=== PATIENT | female | born 1930 | race African-American/Black ===

== ENCOUNTER 2019-02-05 16:57 | Inpatient (IN) | payer OTHER ==
[~2019-02-05] VITALS: Ht 167.6 cm; Wt 63.5 kg
[2019-02-05 17:18] VITALS: BP 131/64
--- NOTE | 2019-02-05 17:20 | NUR ---
ED Nurse Note:pt. was BIBA from home, s/p fall no injury or pain reported ,skin is intact, VSS, pt. is A/Ox3, seem by YANIQUE DAO
--- NOTE | 2019-02-05 17:35 | NUR ---
ED Nurse Note:blood and urine sent to labs
[2019-02-05 17:43] LABS: BASOPHILS % (AUTO) 2.4 % (0.0-2.0); EOSINOPHILS % (AUTO) 3.3 % (0.0-3.0); HEMATOCRIT 36.5 % (37.0-47.0); HEMOGLOBIN 11.8 G/DL (12.0-16.0); MEAN CORPUSCULAR VOLUME 89 FL (80-99); MONOCYTES % (AUTO) 9.6 % (1.0-10.0); NEUTROPHILS % (AUTO) 55.6 % (45.0-75.0); PLATELET COUNT 304 K/UL (150-450); RED BLOOD COUNT 4.12 M/UL (4.20-5.40); RED CELL DISTRIBUTION WIDTH 11.8 % (11.6-14.8); WHITE BLOOD COUNT 8.4 K/UL (4.8-10.8)
[2019-02-05] MEDS: Sodium Chloride 550 ML IV SCH ×2 (17:43→21:18)
--- NOTE | 2019-02-05 17:53 | NUR ---
ED Nurse Note:pt. had head CT done
[2019-02-05 17:55] LABS: APPEARANCE,URINE CLEAR; BILIRUBIN, URINE NEGATIVE (NEGATIVE); COLOR,URINE PALE YELLOW; GLUCOSE, URINE (UA) NEGATIVE (NEGATIVE); KETONES,URINE NEGATIVE (NEGATIVE); LEUKOCYTE ESTERASE ,URINE NEGATIVE (NEGATIVE); NITRITE,URINE NEGATIVE (NEGATIVE); PH,URINE 5 (4.5-8.0); PROTEIN,URINE NEGATIVE (NEGATIVE); UROBILINOGEN,URINE NORMAL MG/DL (0.0-1.0)
[2019-02-05 17:57] LABS: ANION GAP 2 mmol/L (5-15); BLOOD UREA NITROGEN 15 mg/dL (7-18); CALCIUM 9.7 MG/DL (8.5-10.1); CARBON DIOXIDE 29 MMOL/L (21-32); CHLORIDE 109 MMOL/L (98-107); CREATININE 0.8 MG/DL (0.55-1.30); POTASSIUM 3.3 MMOL/L (3.5-5.1); SODIUM 140 MMOL/L (136-145)
[2019-02-05 18:09] LABS: ALANINE AMINOTRANSFERASE 27 U/L (12-78); ALBUMIN 2.9 G/DL (3.4-5.0); ALBUMIN/GLOBULIN RATIO 0.6 (1.0-2.7); ALKALINE PHOSPHATASE 131 U/L (46-116); ASPARTATE AMINO TRANSFERASE 33 U/L (15-37); BILIRUBIN,TOTAL 0.5 MG/DL (0.2-1.0); CREATINE KINASE 79 U/L (26-308)
[2019-02-05 18:52] VITALS: BP 154/111
[2019-02-05] MEDS ORDERED: DONEPEZIL HCL10 M2 ORAL (19:20)
[2019-02-05] MEDS ORDERED: DILTIAZEM ER300 MG PO (19:20)
[2019-02-05] MEDS ORDERED: ZYPREXA5 MG ORAL (19:20)
[2019-02-05] MEDS ORDERED: LORAZEPAM2 MG ORAL (19:20)
--- NOTE | 2019-02-05 19:27 | Emergency Room Report ---
History of Present Illness General Chief Complaint: Multiple Trauma/Fall Source: Patient Present Illness HPI The patient fell in the bathroom yesterday. She was not observed when she fell. She fell on tile. She hit her backside and her daughter does not think she hit her head. Since that time she is having difficulty ambulating. The patient has dementia and is unable to answer questions. The daughter states that she is incontinent of urine almost all the time. The daughter is also noticed that she has been coughing recently. There is been no documented fevers. There is no vomiting or diarrhea. Allergies: Coded Allergies: No Known Allergies (Unverified , 02/05/19) Patient History Limited by: medical condition Past Medical History: see triage record Social History Narrative Born in [place]. She had her own [employer] business Last Menstrual Period: menopause Now: No Reviewed Nursing Documentation: PMH: Agreed; PSxH: Agreed Review of Systems All Other Systems: limited Physical Exam Vital Signs Date Time Temp Pulse Resp B/P (MAP) Pulse Ox O2 Delivery O2 Flow Rate FiO2 02/05/19 17:02 98.4 91 16 193/84 (120) 94 Room Air Sp02 EP Interpretation: reviewed, normal General Appearance: well appearing, no apparent distress, alert, non-toxic, other - GCS 14 Head: normocephalic, atraumatic Eyes: bilateral eye normal inspection, bilateral eye PERRL, bilateral eye EOMI ENT: moist mucus membranes Neck: supple, no bony tend Respiratory: chest non-tender, lungs clear, normal breath sounds Cardiovascular #1: regular rate, rhythm Cardiovascular #2: 2+ radial (R) Gastrointestinal: normal inspection, normal bowel sounds, non tender, no mass, non-distended Musculoskeletal: back normal, normal range of motion, other - No lumbar tenderness Neurologic: alert, 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 She is unable to ambulate at this time. Differential includes syncope, mechanical fall, back contusion, fracture, electrolyte abnormality, occult infection amongst others. Very complicated patient. Patient will be evaluated with EKG, chest x-ray, lumbar sacral spine films and labs. The patient will be treated with IV hydration. EKG with sinus rhythm and nonspecific ST-T wave changes with inferolateral ischemia. Chest x-ray no infiltrates. Lumbar sacral spine films with L5-S1 narrowing no step-offs or obvious fractures. CBC unremarkable. CMP remarkable for low potassium. Urinalysis clear. Potassium administered in the emergency department. Ativan given for mild anxiety. Due to the fact that the patient cannot ambulate the patient was admitted to the hospital for further evaluation and observation. Discussion of findings with daughter. Laboratory Tests Test 02/05/19 17:30 White Blood Count 8.4 K/UL (4.8-10.8) Red Blood Count 4.12 M/UL (4.20-5.40) L Hemoglobin 11.8 G/DL (12.0-16.0) L Hematocrit 36.5 % (37.0-47.0) L Mean Corpuscular Volume 89 FL (80-99) Mean Corpuscular Hemoglobin 28.7 PG (27.0-31.0) Mean Corpuscular Hemoglobin Concent 32.4 G/DL (32.0-36.0) Red Cell Distribution Width 11.8 % (11.6-14.8) Platelet Count 304 K/UL (150-450) Mean Platelet Volume 6.1 FL (6.5-10.1) L Neutrophils (%) (Auto) 55.6 % (45.0-75.0) Lymphocytes (%) (Auto) 29.0 % (20.0-45.0) Monocytes (%) (Auto) 9.6 % (1.0-10.0) Eosinophils (%) (Auto) 3.3 % (0.0-3.0) H Basophils (%) (Auto) 2.4 % (0.0-2.0) H Prothrombin Time 10.3 SEC (9.30-11.50) Prothrombin Time INR 1.0 (0.9-1.1) PTT 24 SEC (23-33) Urine Color Pale yellow Urine Appearance Clear Urine pH 5 (4.5-8.0) Urine Specific [place] 1.020 (1.005-1.035) Urine Protein Negative (NEGATIVE) Urine Glucose (UA) Negative (NEGATIVE) Urine Ketones Negative (NEGATIVE) Urine Blood 1+ (NEGATIVE) H Urine Nitrite Negative (NEGATIVE) Urine Bilirubin Negative (NEGATIVE) Urine Urobilinogen Normal MG/DL (0.0-1.0) Urine Leukocyte Esterase Negative (NEGATIVE) Urine RBC 0-2 /HPF (0 - 2) Urine WBC 0-2 /HPF (0 - 2) Urine Squamous Epithelial Cells Occasional /LPF Urine Bacteria Occasional /HPF (NONE) Urine Mucus Moderate /LPF (NONE/OCC) H Sodium Level 140 MMOL/L (136-145) Potassium Level 3.3 MMOL/L (3.5-5.1) L Chloride Level 109 MMOL/L (98-107) H Carbon Dioxide Level 29 MMOL/L (21-32) Anion Gap 2 mmol/L (5-15) L Blood Urea Nitrogen 15 mg/dL (7-18) Creatinine 0.8 MG/DL (0.55-1.30) Estimate Glomerular Filtration Rate mL/min (>60) Glucose Level 116 MG/DL (74-106) H Calcium Level 9.7 MG/DL (8.5-10.1) Total Bilirubin 0.5 MG/DL (0.2-1.0) Aspartate Amino Transferase (AST) 33 U/L (15-37) Alanine Aminotransferase (ALT) 27 U/L (12-78) Alkaline Phosphatase 131 U/L (46-116) H Total Creatine Kinase 79 U/L (26-308) Troponin I 0.000 ng/mL (0.000-0.056) Pro-B-Type Natriuretic Peptide 209 pg/mL (0-125) H Total Protein 7.8 G/DL (6.4-8.2) Albumin 2.9 G/DL (3.4-5.0) L Globulin 4.9 g/dL Albumin/Globulin Ratio 0.6 (1.0-2.7) L EKG Diagnostic Results Rate: normal Rhythm: NSR ST Segments: no acute changes Rhythm Strip Diag. Results EP Interpretation: yes Rhythm: NSR, no PVC's, no ectopy Chest X-Ray Diagnostic Results Chest X-Ray Diagnostic Results : Chest X-Ray Ordered: Yes # of Views/Limited/Complete: 1 View Indication: Other EP Interpretation: Yes Interpretation: no consolidation, no effusion, no pneumothorax, other - No infiltrates Impression: Other Electronically Signed by: Electronically signed by Nolan Gutierrez MD Other X-Ray Diagnostic Results Other X-Ray Diagnostic Results : X-Ray ordered: l s spine # of Views/Limited Vs Complete: 3 View Indication: Pain EP Interpretation: Yes CT/MRI/US Diagnostic Results CT/MRI/US Diagnostic Results : Imaging Test Ordered: Head Impression Air-fluid level right maxillary sinus. Chronic microvascular ischemic changes with cerebral volume loss Last Vital Signs Date Time Temp Pulse Resp B/P (MAP) Pulse Ox O2 Delivery O2 Flow Rate FiO2 02/05/19 23:31 Room Air 02/05/19 22:00 98.4 73 14 154/111 99 Status: improved Disposition: XFER SHT-TRM HOSP Condition: Serious Referrals: NON PHYSICIAN (PCP) Nolan Gutierrez MD Feb 05, 2019 19:27
[2019-02-05] MEDS ORDERED: LORazepam Inj 2mg/ml 1ml IV ONE (20:15)
--- NOTE | 2019-02-05 20:53 | NUR ---
ED Nurse Note: pt with increased confusion, trying to get out of bed constantly and pulling at cords. Pt is not combative just forgetfull and unaware of limitations. Family at bedside
--- NOTE | 2019-02-05 21:30 | NUR ---
NURSE NOTES: Received report via phone from ATIF [facility]. Awaiting pts arrival to unit. Called and left a message with Dr. Osman (on-call for Dr. Saini), awaiting call back.
--- NOTE | 2019-02-05 22:00 | NUR ---
TRANSFER TO FLOOR: Patient transferred to as ordered, per [Dr Saini]. Report given to [ATIF Sierra]. Belongings and medications given to []. Family and or S/O informed of transfer.
--- NOTE | 2019-02-05 22:30 | NUR ---
NURSE NOTES: Called and left a second message with Dr. Osman (on-call for Dr. Saini), awaiting call back.
[2019-02-06] VITALS: BP 123/60
[2019-02-06] MEDS: Sodium Chloride 550 ML IV SCH (00:50)
--- NOTE | 2019-02-06 01:36 | NUR ---
NURSE NOTES: Received the following orders from Dr. Saini: - continue home meds - regular diet - scds - full code Will input orders and will continue to monitor.
[2019-02-06 04:00] VITALS: BP 121/58
--- NOTE | 2019-02-06 07:43 | NUR ---
HAND-OFF: Report given to ATIF Tim. Pt stable.
[2019-02-06 08:00] VITALS: BP 116/60
--- NOTE | 2019-02-06 08:00 | NUR ---
NURSE NOTES: Received report from Mariela/RN, Patient asleep, Lying semi-park, no acute distress/SOB noted. Son at bedside. Checked IV, patent and intact, no bleeding or infiltration noted. Bed in lowest position and locked, Call light within reach. Will continue plan of care.
--- NOTE | 2019-02-06 08:01 | NUR ---
CASE MANAGEMENT: INITIAL REVIEW 88 YO F PRESENTED TO OUR ED FROM HOME CC: FALL YESTERDAY PMHx: URINE INCONTINENCE. SI:SYNCOPE. T 98.4 HR 91 RR 16 B/P 193/84 SATS 94% ON RA K 3.3 CL 109 GLU 116 ALP 131 BNP 209 IS: NS BOLUS X1 KCL PO X1 ATIVAN IV X1 PATIENT ADMITTED TO TELE 02/05/2019 @ 2042 DCP: PATIENT TO BE DISCHARGED TO HOME ONCE MEDICALLY CLEARED. 02/06/2019 SI:SYNCOPE. T 98 HR 73 RR 18 B/P 121/58 SATS 96% ON RA NO LABS TODAY IS:ARICEPT PO QD ZYPREXA PO QD TELE STATUS PLAN OF CARE: CT HEAD >> PENDING Addendum: 02/06/19 at 0808 by Heike Marino INTERQUAL MET
[2019-02-06] MEDS ORDERED: LORazepam 1mg tab ORAL ONE (09:00)
[2019-02-06] MEDS ORDERED: Donepezil 10mg tab ORAL SCH (09:00)
--- NOTE | 2019-02-06 09:21 | Diagnostic Imaging Report ---
Indications: Trauma, status post fall Technique: Spiral acquisitions obtained through the brain. Angled axial and coronal 5 x 5 mm slices were reconstructed. Total dose length product 1368.97 mGycm. CTDI vol(s) 70.38 mGy. Dose reduction achieved using automated exposure control Comparison: None. Findings: There is age-related enlargement of the ventricles and extra axial CSF spaces. There is periventricular deep white matter low-attenuation, consistent with chronic deep white matter ischemic change. No acute intracranial hemorrhage or edema, mass effect, nor midline shift. The calvarium is intact. The visualized orbits are unremarkable. There is extensive sinus disease demonstrated. The mastoids are clear. Impression: Chronic and age-related changes. Negative for acute intracranial bleed or mass effect Sinus disease This agrees with the preliminary interpretation provided overnight by [facility] teleradiology service. The CT scanner at [facility] is accredited by the [employer] and the scans are performed using protocols designed to limit radiation exposure to as low as reasonably achievable to attain images of sufficient resolution adequate for diagnostic evaluation.
[2019-02-06 10:10] LABS: BASOPHILS % (AUTO) 1.1 % (0.0-2.0); EOSINOPHILS % (AUTO) 3.2 % (0.0-3.0); HEMATOCRIT 38.8 % (37.0-47.0); HEMOGLOBIN 12.1 G/DL (12.0-16.0); LYMPHOCYTES % (AUTO) 28.4 % (20.0-45.0); MEAN CORPUSCULAR VOLUME 91 FL (80-99); MONOCYTES % (AUTO) 6.7 % (1.0-10.0); NEUTROPHILS % (AUTO) 60.7 % (45.0-75.0); PLATELET COUNT 319 K/UL (150-450); RED BLOOD COUNT 4.28 M/UL (4.20-5.40); RED CELL DISTRIBUTION WIDTH 12.3 % (11.6-14.8); WHITE BLOOD COUNT 8.4 K/UL (4.8-10.8)
[2019-02-06 11:03] LABS: ALANINE AMINOTRANSFERASE 26 U/L (12-78); ALBUMIN 2.8 G/DL (3.4-5.0); ALBUMIN/GLOBULIN RATIO 0.6 (1.0-2.7); ALKALINE PHOSPHATASE 119 U/L (46-116); ANION GAP 7 mmol/L (5-15); ASPARTATE AMINO TRANSFERASE 37 U/L (15-37); BILIRUBIN,TOTAL 0.5 MG/DL (0.2-1.0); BLOOD UREA NITROGEN 11 mg/dL (7-18); CALCIUM 9.3 MG/DL (8.5-10.1); CARBON DIOXIDE 26 MMOL/L (21-32); CHLORIDE 110 MMOL/L (98-107); CREATININE 0.8 MG/DL (0.55-1.30); POTASSIUM 3.9 MMOL/L (3.5-5.1); SODIUM 143 MMOL/L (136-145)
[2019-02-06 12:00] VITALS: BP 128/63
--- NOTE | 2019-02-06 12:09 | NUR ---
P.T NOTE: P.T EVALUATION COMPLETED AND TREATMENT INITIATED. PLEASE REFER TO P.T EVALUATION FOR CURRENT FUNCTIONAL STATUS. SON PRESENT WHO PROVIDED PERTINENT INFORMATION IN REGARDS TO PLOF DUE TO PATIENT'S COGNITIVE ISSUE. PATIENT IS ALERT, ORIENTED TO SELF ONLY , PLEASANTLY CONFUSED HOWEVER FOLLOWS SIMPLE ONE STEP COMMANDS WITH CONSTANT REDIRECTION NEEDED. PATIENT DID NOT REPORT C/O PAIN NOR DISCOMFORT DURING THE ENTIRE P.T EVALUATION/TX. PATIENT APPEARED GENERALLY AND UNSTEADY EVIDENCE BY LOB EPISODES DURING GAIT ASSESSMENT. PATIENT CURRENTLY REQUIRE CGA X 1 FOR BED MOBILITY, TRANSFERS AND GAIT/AMBULATION ACTIVITIES. OVERALL FAIR ENDURANCE. SKILLED P.T SERVICE IS WARRANTED TO IMPROVE STRENGTH , BALANCE AND ENDURANCE TO INCREASE HER MOBILITY INDEPENDENCE AND SAFETY. ANTICIPATED D/C EITHER TODAY OR TOMORROW OR WHEN MEDICALLY STABLE TO HOME WITH FAMILY ASSISTING. RECOMMEND HOME P.T FOR SAFETY FOLLOWUP UP FOR FURTHER STRENGTHENING AND BALANCE IMPROVEMENT. THANK YOU FOR THIS REFERRAL.
--- NOTE | 2019-02-06 12:19 | Diagnostic Imaging Report ---
Indication: Trauma, pain Technique: One view of the pelvis Comparison: none Findings: No acute fractures. No dislocations. The joint spaces are preserved. Impression: Negative
--- NOTE | 2019-02-06 12:20 | Diagnostic Imaging Report ---
Indication: Pain, trauma Technique: 3 views of the lumbar spine Comparison: None Findings: There is very slight anterior offset of L3 on L4, L4 on L5. Otherwise normal bony alignment. There is degenerative disc narrowing at L5-S1. The remaining disc spaces are preserved. No acute fractures. No dislocations. The ankles are intact. Sacroiliac joint spaces are preserved Impression: Degenerative changes as noted No acute bony trauma
--- NOTE | 2019-02-06 12:44 | Diagnostic Imaging Report ---
Indication: Shortness of breath Technique: One view of the chest Comparison: none Findings: Suboptimal inspiration. Scattered granulomatous calcifications are present bilaterally. There is chronic appearing mild interstitial prominence and central bronchial wall thickening, probably on the basis of senescent change. The heart is upper limits of normal in size Impression: Mild interstitial prominence, suspect on the basis of senescent changes. No definite acute process Evidence of old granulomatous disease
--- NOTE | 2019-02-06 16:26 | NUR ---
DISCHARGE PLANNING SPOKE WITH FAMILY AT BEDSIDE AND ALSO CALLED AND SPOKE WITH HCP PROJECT MANAGEMENT INTERN FAXED DISCHARGE ORDER TO [facility]Y [facility]. ORDER INCLUDED REQUEST FOR HOME HEALTH SERVICES SILKE SAID SOMEONE WILL CONTACT FAMILY WITHIN 24 TO 48 HOURS REGARDING CONTRACTED HOME HEALTH SERVICES
--- NOTE | 2019-02-06 17:00 | NUR ---
NURSE NOTES: Discharge instruction given and patient's family verbalized understanding. Heart monitor and IV removed, no acute bleeding or infiltration noted. Patient is in stable condition. No acute distress. Family singed paper work. Escorted downstairs, Patient left with family via private vehicle.
--- NOTE | 2019-02-06 18:45 | History and Physical Report ---
DATE OF ADMISSION: 02/05/2019 CHIEF COMPLAINT: Fall. HISTORY OF PRESENT ILLNESS: The patient was found down in the bathroom yesterday. She has severe dementia and does live with the family. There is no indication why she fell and she did not complain of any pain. She had some difficulty walking since then. This morning, she said that she has no pain and is feeling fine. According to the family, she was incontinent of urine. She has slight cough. There is no fevers, chills, or sweats. No vomiting or diarrhea. She seemed more confused than usual. PAST MEDICAL HISTORY: Alzheimer's type dementia and hypertension. REVIEW OF SYSTEMS: Otherwise unremarkable. PHYSICAL EXAMINATION: GENERAL: The blood pressure has been satisfactory on medication. It was elevated when she first arrived. SKIN: Warm and dry. HEENT: The head is normocephalic without signs of trauma. NECK: No jugular venous distention. CHEST: Clear. CARDIAC: Rhythm is regular. ABDOMEN: Soft and nontender. EXTREMITIES: No clubbing, cyanosis, or edema. DIAGNOSTIC DATA: An x-rays of the hip and CT of the brain are negative for anything acute. Chest x-ray is negative. LABORATORY DATA: Laboratory studies notable for a low albumin of 2.8. Potassium was supplemented and is normal now. Hemoglobin is normal. There is no urinary infection. IMPRESSION: 1. Fall without significant trauma. 2. Chronic Alzheimer's dementia. 3. Mild protein-calorie malnutrition. PLAN: Today, he will be evaluated by physical therapy and social service and discharge home later today if the findings are acceptable. Kvng Saini M.D. DR: LIZY JOB#: [id number] CC:
--- NOTE | 2019-02-08 10:29 | NUR ---
*-* INSURANCE *-* ALL CLINICALS AND REVIEWS HAVE BEEN FAXED TO: [facility] [employer] F:[phone]
--- NOTE | 2019-02-13 20:53 | Cardiology Report ---
APPROVED REPORT EKG Measurement Heart [id number] Normal sinus rhythm Cannot rule out Anterior infarct, age undetermined Abnormal ECG
--- NOTE | 2019-02-20 19:20 | Discharge Summary ---
Discharge Summary Discharge Summary _ DATE OF ADMISSION: 02/06/2019 DATE OF DISCHARGE: 02/06/2019 DISCHARGED BY: Dr. Kvng Saini BRIEF HOSPITAL COURSE: Patient is an 88-year-old female, who was found down in the bedroom the day prior to admission. She has severe dementia and does not live with the family. There was no indication why she fell. She did not complain of any pain. She had difficulty walking since then. On the morning of admission, she had no pain and was feeling fine. According to the family, she was incontinent of urine. She also had a slight cough. There was no reported fever, no chills or sweats. No vomiting or diarrhea. She seemed more confused than her baseline. On evaluation at ED, blood pressure was elevated to 193/84. Heart rate 91. She was afebrile and was saturating 94% on room air. Blood work did not show any leukocytosis. Hemoglobin 11.8 and hematocrit 36. Potassium was low at 3.3. Troponin was negative. proBNP 209. Urinalysis was essentially unremarkable. EKG was in normal sinus rhythm with nonspecific ST to T wave changes and inferolateral ischemia. Chest x-ray did not show any infiltrates. Lumbar x- ray did not show any acute bony trauma. Pelvic x-ray was negative for fractures or dislocation. Head CT showed chronic age-related changes; negative for acute intracranial bleed or mass-effect. She was given IV hydration. She was given potassium supplement. She was then admitted for evaluation of fall without significant trauma; with underlying chronic Alzheimer's dementia. She was admitted to telemetry. She was placed on the steel roller. Patient is a fall risk and was placed on fall precautions. Home meds were continued. Patient was evaluated by physical therapy. Patient had unsteady gait and was recommended FWW. She was recommended skilled PT services to improve strength, balance, endurance, mobility and safety. Vital signs were stable. Heart monitor stable. Potassium level normalized. She was eventually cleared for discharge home. FINAL DIAGNOSES: Fall without significant trauma Chronic Alzheimer's dementia Mild protein calorie malnutrition DISPOSITION: Patient was discharged home with home health DISCHARGE MEDICATIONS: Refer to Discharge Medication List. DISCHARGE INSTRUCTIONS: Follow-up in a week. I have been assigned to complete a discharge summary on this account, I was not involved with the patient's management.--EFE Gorman Jacqueline Robles NP Feb 20, 2019 19:20
== END 2019-02-06 17:37 | disposition home health service (06) | DRG 312 ==
LOC: EMR 18:08 → 2E 20:43 → EDBEDREQ 20:49 → OBSVTOIN 02-06 08:42
DX: R55 Syncope and collapse (principal); E44.1 Mild protein-calorie malnutrition; E87.6 Hypokalemia; G30.9 Alzheimer's disease, unspecified; F02.80 Dementia in other diseases classified elsewhere, unspecified severity, without behavioral disturbance, psychotic disturbance, mood disturbance, and anxiety; I10 Essential (primary) hypertension; Z68.22 Body mass index [BMI] 22.0-22.9, adult
CPT/HCPCS: 36415; 70450; 71045; 72020; 72170; 80053; 81003; 82550; 83735; 83880; 84484; 85025; 85610; 85730; 93005; 96374; 99285; J8499

== ENCOUNTER 2020-07-19 20:38 | Inpatient (IN) | payer OTHER ==
[~2020-07-19] VITALS: Ht 160 cm; Wt 72.5 kg
[~2020-07-19 20:38] MED LIST: DILTIAZEM ER300 MG PO; DONEPEZIL HCL10 M2 ORAL; LORAZEPAM2 MG ORAL; ZYPREXA5 MG ORAL
[2020-07-19] MEDS ORDERED: Omnipaque-300 100ml vial INJ STA (20:56)
[2020-07-19] MEDS ORDERED: D5 1/2NS w/KCl 20mEq 1,000 ML IV SCH (21:00)
[2020-07-19 21:05] VITALS: BP 164/86
--- NOTE | 2020-07-19 21:20 | Emergency Room Report ---
History of Present Illness General Chief Complaint: Choking Source: Patient, Family Member (Nolan Gutierrez MD) Present Illness HPI The patient presents with hoarseness and inability to swallow for 3 days. She started complaining about neck pain and swelling approximately week ago. Over the last 3 days this is worsened. She now cannot swallow water and chokes and turns blue when she tries. The granddaughter tried applesauce but the patient did not choke on this but stated that it was too painful to swallow. No fevers or chills. No weight loss. No shortness of breath or cough. Most of history obtained by grand-daughter. The patient has been isolated at home and not exposed to Covid. Patient with dementia and answers variable. Last admitted January 2019. 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 (Nolan Gutierrez MD) Allergies: Coded Allergies: No Known Allergies (Unverified , 02/05/19) COVID-19 Screening Contact w/high risk pt: No Experienced COVID-19 symptoms?: No COVID-19 Testing performed PLASTER PATTERNMAKER: No (Nolan Gutierrez MD) Patient History Limited by: medical condition Past Medical History: see triage record, old chart reviewed Social History Narrative Born in [place] Reviewed Nursing Documentation: PMH: Agreed; PSxH: Agreed (Nolan Gutierrez MD) Nursing Documentation-PMH Hx Hypertension: Yes (Nolan Gutierrez MD) Review of Systems All Other Systems: limited (Nolan Gutierrez MD) Physical Exam Vital Signs Date Time Temp Pulse Resp B/P (MAP) Pulse Ox O2 Delivery O2 Flow Rate FiO2 07/19/20 20:41 98.4 85 18 166/86 (112) 95 Room Air Sp02 EP Interpretation: reviewed, abnormal - slightly low as interpreted by me General Appearance: well appearing, no apparent distress, non-toxic, other - old and frail Head: normocephalic, atraumatic Eyes: bilateral eye normal inspection, bilateral eye PERRL, bilateral eye EOMI ENT: normal pharynx, moist mucus membranes, other - at least 2 masses L side of neck. Not mobile. Bottom one is at least 2X3 cm Neck: full range of motion, no meningismus, thyromegaly, other - no stridor but there is hoarseness, tender - anterior areas Respiratory: chest non-tender, lungs clear, normal breath sounds Cardiovascular #1: regular rate, rhythm Cardiovascular #2: 2+ radial (R) Gastrointestinal: normal bowel sounds, non tender, soft Genitourinary: no CVA tenderness Musculoskeletal: back normal, other - DJD Neurologic: motor strength/tone normal, oriented - X2, DTRs symmetric, sensory intact, cerebellar normal, other - hoarseness, rest of CN tested normal Psychiatric: other - poor recent memory Skin: no rash, warm/dry (Nolan Gutierrez MD) Medical Decision Making Diagnostic Impression: Primary Impression: Neck mass Additional Impressions: Dysphagia Qualified Codes: R13.10 - Dysphagia, unspecified Hypokalemia Tumor, thyroid Hypertensive urgency Tachycardia ER Course Patient presents with hoarseness dysphagia and neck masses. Differential includes infection, abscess, lymphadenitis, lymphoma and other lymphatic tumors, recurrent laryngeal compromise amongst others. She has been unable to swallow we have to evaluate her for possible dehydration. Called for critical potassium. K had been ordered but added more. Leukocytosis. Rocephin ordered. CT with thyroid tumor. Anxiety and hard dealing with secretions. Suction at bedside. Ativan and Haldol ordered. Discussed with daughter. Also discussed with admitting MD. Tachycardia and hypertension. Labetalol ordered. Telemetry unit. 2320 Labs Test 07/20/20 07:57 07/21/20 08:45 07/22/20 05:15 07/22/20 11:37 Sodium Level 140 MMOL/L (136-145) 140 MMOL/L (136-145) 138 MMOL/L (136-145) 140 MMOL/L (136-145) Potassium Level 2.7 MMOL/L (3.5-5.1) 3.3 MMOL/L (3.5-5.1) 3.4 MMOL/L (3.5-5.1) 3.3 MMOL/L (3.5-5.1) Chloride Level 104 MMOL/L (98-107) 106 MMOL/L (98-107) 105 MMOL/L (98-107) 104 MMOL/L (98-107) Carbon Dioxide Level 27 MMOL/L (21-32) 25 MMOL/L (21-32) 26 MMOL/L (21-32) 27 MMOL/L (21-32) Anion Gap 9 mmol/L (5-15) 9 mmol/L (5-15) 7 mmol/L (5-15) 9 mmol/L (5-15) Blood Urea Nitrogen 9 mg/dL (7-18) 7 mg/dL (7-18) 7 mg/dL (7-18) 9 mg/dL (7- 18) Creatinine 0.7 MG/DL (0.55-1.30) 0.7 MG/DL (0.55-1.30) 0.7 MG/DL (0.55-1.30) 0.8 MG/DL (0.55-1.30) Estimat Glomerular Filtration Rate > 60 mL/min (>60) > 60 mL/min (>60) > 60 mL/min (>60) > 60 mL/min (>60) Glucose Level 107 MG/DL (74-106) 117 MG/DL (74-106) 106 MG/DL (74-106) 117 MG/DL (74-106) Calcium Level 8.4 MG/DL (8.5-10.1) 8.3 MG/DL (8.5-10.1) 8.7 MG/DL (8.5-10.1) 9.1 MG/DL (8.5-10.1) White Blood Count 15.7 K/UL (4.8-10.8) 17.8 K/UL (4.8-10.8) 17.3 K/UL (4.8-10.8) Red Blood Count 4.82 M/UL (4.20-5.40) 4.67 M/UL (4.20-5.40) 4.84 M/UL (4.20-5.40) Hemoglobin 13.9 G/DL (12.0-16.0) 13.7 G/DL (12.0-16.0) 14.0 G/DL (12.0-16.0) Hematocrit 41.1 % (37.0-47.0) 40.7 % (37.0-47.0) 40.3 % (37.0-47.0) Mean Corpuscular Volume 85 FL (80-99) 87 FL (80-99) 83 FL (80-99) Mean Corpuscular Hemoglobin 28.8 PG (27.0-31.0) 29.3 PG (27.0-31.0) 28.9 PG (27.0-31.0) Mean Corpuscular Hemoglobin Concent 33.8 G/DL (32.0-36.0) 33.6 G/DL (32.0-36.0) 34.6 G/DL (32.0-36.0) Red Cell Distribution Width 13.6 % (11.6-14.8) 12.7 % (11.6-14.8) 14.2 % (11.6-14.8) Platelet Count 355 K/UL (150-450) 366 K/UL (150-450) 391 K/UL (150-450) Mean Platelet Volume 7.3 FL (6.5-10.1) 7.3 FL (6.5-10.1) 7.5 FL (6.5-10.1) Neutrophils (%) (Auto) 72.5 % (45.0-75.0) 74.3 % (45.0-75.0) 69.8 % (45.0-75.0) Lymphocytes (%) (Auto) 14.1 % (20.0-45.0) 15.5 % (20.0-45.0) 18.2 % (20.0-45.0) Monocytes (%) (Auto) 8.1 % (1.0-10.0) 7.3 % (1.0-10.0) 8.0 % (1.0-10.0) Eosinophils (%) (Auto) 4.4 % (0.0-3.0) 2.2 % (0.0-3.0) 3.0 % (0.0-3.0) Basophils (%) (Auto) 0.8 % (0.0-2.0) 0.8 % (0.0-2.0) 1.1 % (0.0-2.0) (Nolan Gutierrez MD) ER Course Patient was signed out to me. She has a thyroid mass as cause some eating problem. She also has a history of high blood pressure and takes Ativan at night for sleep. She was agitated and coughing and was tachycardic and hypertensive. After getting Ativan and Haldol, she is much calmer. She also received a low dose of labetalol. Right now her blood pressure is systolic in the 170 and heart rate in the 80. She is otherwise stable. In my medical opinion, she can be downgraded to medical surgical bed. (Kedar Lincoln MD) EKG Diagnostic Results Troponin ordered: Yes Rate: normal Rhythm: NSR ST Segments: no acute changes - Nonspecific ST-T wave changes with PACs (Nolan Gutierrez MD) Rhythm Strip Diag. Results Rhythm: NSR, no PVC's, other - PACs (Nolan Gutierrez MD) Chest X-Ray Diagnostic Results Chest X-Ray Diagnostic Results : Chest X-Ray Ordered: Yes # of Views/Limited/Complete: 1 View Indication: Other EP Interpretation: Yes Interpretation: no consolidation, no effusion, no pneumothorax, other - slight opacity RUL Impression: Other Electronically Signed by: Electronically signed by Nolan Gutierrez MD (Nolan Gutierrez MD) CT/MRI/US Diagnostic Results CT/MRI/US Diagnostic Results #1: Imaging Test Ordered: neck Impression Large partially calcified mostly low density heterogeneous mass measuring approximately 7.8 x 5.4 cm, appears to be arising from the left thyroid gland. This process exerts mass-effect and rightward tracheal deviation with mild narrowing of the canal. Likely thyroid neoplastic process or goiter. Recommend ultrasound/FNA. CT/MRI/US Diagnostic Results #2: Imaging Test Ordered: chest/abdomen Impression 1. Partially calcified large heterogeneous low-density mass arising from the left thyroid gland protruding into the superior mediastinum. This process deviates the trachea to the right and mildly narrows the canal. The esophagus is also deviated to the right. 2. 2 mm micronodule in the right upper lobe. (Nolan Gutierrez MD) Status: improved (Nolan Gutierrez MD) Disposition: ADMITTED INPATIENT Condition: Serious Referrals: NON PHYSICIAN (PCP) Nolan Gutierrez MD Jul 19, 2020 21:20 Kedar Lincoln MD Jul 20, 2020 01:08
[2020-07-19 21:40] LABS: INR 1.2 (0.9-1.1)
[2020-07-19 21:43] LABS: ALANINE AMINOTRANSFERASE 20 U/L (12-78); ALBUMIN 3.3 G/DL (3.4-5.0); ALBUMIN/GLOBULIN RATIO 0.6 (1.0-2.7); ALKALINE PHOSPHATASE 94 U/L (46-116); ANION GAP 10 mmol/L (5-15); ASPARTATE AMINO TRANSFERASE 23 U/L (15-37); BLOOD UREA NITROGEN 15 mg/dL (7-18); CALCIUM 8.8 MG/DL (8.5-10.1); CARBON DIOXIDE 25 MMOL/L (21-32); CHLORIDE 103 MMOL/L (98-107); CREATINE KINASE 51 U/L (26-308); CREATININE 0.8 MG/DL (0.55-1.30); SODIUM 138 MMOL/L (136-145)
[2020-07-19 21:44] LABS: POTASSIUM 2.7 MMOL/L (3.5-5.1)
[2020-07-19 21:54] LABS: BASOPHILS % (AUTO) 1.3 % (0.0-2.0); EOSINOPHILS % (AUTO) 3.3 % (0.0-3.0); HEMATOCRIT 42.2 % (37.0-47.0); HEMOGLOBIN 14.4 G/DL (12.0-16.0); LYMPHOCYTES % (AUTO) 18.2 % (20.0-45.0); MEAN CORPUSCULAR VOLUME 83 FL (80-99); MONOCYTES % (AUTO) 8.3 % (1.0-10.0); NEUTROPHILS % (AUTO) 68.9 % (45.0-75.0); PLATELET COUNT 418 K/UL (150-450); RED BLOOD COUNT 5.06 M/UL (4.20-5.40); RED CELL DISTRIBUTION WIDTH 13.5 % (11.6-14.8); WHITE BLOOD COUNT 13.9 K/UL (4.8-10.8)
--- NOTE | 2020-07-19 21:54 | Diagnostic Imaging Report ---
EXAM: XR Chest, 1 View CLINICAL HISTORY: MASS TECHNIQUE: Frontal view of the chest. COMPARISON: Chest radiograph dated 02/05/2019. FINDINGS: Lungs: Masslike consolidation of the right lung apex. Otherwise, the lungs are unremarkable in appearance. Pleural space: Unremarkable. No pneumothorax. Heart: Unremarkable. No cardiomegaly. Mediastinum: Unremarkable. Bones/joints: Unremarkable. Vasculature: Atherosclerotic vascular disease with a mildly tortuous aorta. IMPRESSION: Masslike consolidation of the right lung apex. This is suspicious for underlying malignancy. Nonemergent CT can be considered for further evaluation.
[2020-07-19] MEDS ORDERED: cefTRIAXone 1 GM in NS 55 ML IVPB ONE (22:15)
--- NOTE | 2020-07-19 23:08 | Diagnostic Imaging Report ---
EXAM: CT Neck With Intravenous Contrast CLINICAL HISTORY: MASS TECHNIQUE: Axial computed tomography images of the neck with intravenous contrast. CTDI is 14.6 mGy and DLP is 362 mGy-cm. One or more of the following dose reduction techniques were used: automated exposure control, adjustment of the mA and/or kV according to patient size, use of iterative reconstruction technique. COMPARISON: No relevant prior studies available. FINDINGS: Large partially calcified mostly low density heterogeneous mass measuring approximately 7.8 x 5.4 cm, appears to be arising from the left thyroid gland. This process exerts mass-effect and rightward tracheal deviation with mild narrowing of the canal. IMPRESSION: Large partially calcified mostly low density heterogeneous mass measuring approximately 7.8 x 5.4 cm, appears to be arising from the left thyroid gland. This process exerts mass-effect and rightward tracheal deviation with mild narrowing of the canal. Likely thyroid neoplastic process or goiter. Recommend ultrasound/FNA.
--- NOTE | 2020-07-19 23:11 | Diagnostic Imaging Report ---
EXAM: CT Chest With Intravenous Contrast CLINICAL HISTORY: MASS TECHNIQUE: Axial computed tomography images of the chest with intravenous contrast. CTDI is 14.6 mGy and DLP is 400 mGy-cm. One or more of the following dose reduction techniques were used: automated exposure control, adjustment of the mA and/or kV according to patient size, use of iterative reconstruction technique. COMPARISON: No relevant prior studies available. FINDINGS: Lungs: 2 mm micronodule in the right upper lobe. No consolidation. Pleural space: No pneumothorax. No effusion. Heart: Normal heart size. No pericardial effusion. Bones/joints: No acute fracture. Chronic minimal superior endplate wedging of T4, T7. Soft tissues: Partially calcified large heterogeneous low-density mass arising from the left thyroid gland protruding into the superior mediastinum. This process deviates the trachea to the right and mildly narrows the canal. The esophagus is also deviated to the right. Vasculature: Unremarkable. No thoracic aortic aneurysm. Lymph nodes: No enlarged lymph nodes. IMPRESSION: 1. Partially calcified large heterogeneous low-density mass arising from the left thyroid gland protruding into the superior mediastinum. This process deviates the trachea to the right and mildly narrows the canal. The esophagus is also deviated to the right. 2. 2 mm micronodule in the right upper lobe. Fleishner Society Guideline 2017: Solitary nodule size: <6 mm -low-risk patients: no follow-up needed -high-risk patients: optional CT at 12 months EXCLUSIONS: 1. Patients aged 35 years or younger 2. Patients with known malignancy 3. Immunocompromised patients 4. Lung cancer screening population Low-risk patients: a minimal or absent history of smoking and or other known risk factors High-risk patients: a history of smoking or of other known risk factors (e.g. first degree relative with lung cancer, or exposure to asbestos, radon, uranium). EXAM: CT Abdomen and Pelvis With Intravenous Contrast CLINICAL HISTORY: MASS TECHNIQUE: Axial computed tomography images of the abdomen and pelvis with intravenous contrast. CTDI is 14.6 mGy and DLP is 300 mGy-cm. One or more of the following dose reduction techniques were used: automated exposure control, adjustment of the mA and/or kV according to patient size, use of iterative reconstruction technique. COMPARISON: No relevant prior studies available. FINDINGS: ABDOMEN: Liver: Unremarkable. Gallbladder and bile ducts: Unremarkable. Pancreas: Unremarkable. Spleen: Unremarkable. Adrenals: Unremarkable. Kidneys and ureters: No hydronephrosis. Cysts. Stomach and bowel: No bowel obstruction. No bowel wall thickening. PELVIS: Appendix: No evidence of appendicitis. Bladder: Unremarkable. Reproductive: Unremarkable. ABDOMEN and PELVIS: Intraperitoneal space: Unremarkable. Bones/joints: No acute fractures. Soft tissues: Unremarkable. Vasculature: No abdominal aortic aneurysm. Lymph nodes: No enlarged lymph nodes. IMPRESSION: No acute findings.
[2020-07-19] MEDS ORDERED: LORazepam Inj 2mg/ml 1ml IV ONE (23:15)
[2020-07-19] MEDS ORDERED: Labetalol 5mg/ml 20ml vial IV STA (23:18)
[2020-07-19 23:45] VITALS: BP 179/78
[2020-07-20] VITALS (8 sets, daily range): BP systolic 123–178; BP diastolic 68–87
[2020-07-20] MEDS ORDERED: Haloperidol 5mg/ml Inj IM ONE
[2020-07-20] MEDS ORDERED: LORazepam 1mg tab ORAL PRN (03:15)
[2020-07-20 09:14] LABS: ANION GAP 9 mmol/L (5-15); BLOOD UREA NITROGEN 9 mg/dL (7-18); CALCIUM 8.4 MG/DL (8.5-10.1); CARBON DIOXIDE 27 MMOL/L (21-32); CHLORIDE 104 MMOL/L (98-107); CREATININE 0.7 MG/DL (0.55-1.30); SODIUM 140 MMOL/L (136-145)
[2020-07-20 09:18] LABS: POTASSIUM 2.7 MMOL/L (3.5-5.1)
[2020-07-20] MEDS: D5 1/2NS w/KCl 20mEq 1,000 ML IV SCH (10:20)
[2020-07-20] MEDS: HydrALAZINE 10mg Tab ORAL SCH ×3 (11:49→23:05)
[2020-07-20] MEDS: Haloperidol 5mg/ml Inj IM PRN (14:33)
[2020-07-20] MEDS ORDERED: Varibar Pudding 230ml MC PRN (14:45)
[2020-07-20] MEDS ORDERED: Varibar Nectar 240ml MC PRN (14:45)
[2020-07-20] MEDS ORDERED: Varibar Honey 250ml MC PRN (14:45)
[2020-07-20] MEDS ORDERED: Varibar Thin Liquid powder 148gm MC PRN (14:45)
--- NOTE | 2020-07-20 18:45 | History and Physical Report ---
DATE OF ADMISSION: 07/19/2020 HISTORY OF PRESENT ILLNESS: This is an 89-year-old female with a history of cognitive impairment. She reported that she is having difficulty swallowing for the last several days. On , patient could not answer questions appropriately and most of the information obtained from granddaughter at bedside as well as telephonically via children. Patient has been choking and sputtering and could not even swallow applesauce. She was seen and admitted to the hospital after being found to have a large thyroid neck mass as well as evidence of a right upper lobe pneumonia. She also had leukocytosis and hypokalemia. Patient has not been tested for COVID-19 and reports being isolated at home. REVIEW OF SYSTEMS: Unreliable. PAST MEDICAL HISTORY: Notable for cognitive impairment. ALLERGIES: Not known. PAST SURGICAL HISTORY: Not known. PHYSICAL EXAMINATION: GENERAL: Reveals an 89-year-old female. HEENT: Notable for large bilateral neck masses. CHEST: Shows clear breath sounds bilaterally. ABDOMEN: Soft. EXTREMITIES: There is no edema. VITAL SIGNS: Blood pressure , heart rate is 84, respirations 18, O2 saturation 97% on room air. IMAGING STUDIES: A chest x-ray was obtained, which shows a right upper lobe consolidation. She underwent a chest, abdomen, pelvis CT which showed micronodule right upper lobe, but no consolidation. There is a partially calcified large mass in the left thyroid with tracheal deviation. A neck CT was also obtained, which confirmed the same findings. IMPRESSION: 1. 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 3. Difficulty swallowing. 4. Possible right upper lobe pneumonia. 5. Leukocytosis. 6. Hypokalemia. 7. Failure to thrive. 8. Dysphagia. DISCUSSION: Discussed with family. She will need to be transferred to contracted facility given lack of ENT at our facility. She needs to have biopsy of this mass. We will in the interim control blood pressure with medications. We will start broad-spectrum antibiotics. IV fluids to be given. Obtain swallow evaluation. Discussed with family. We will follow carefully. Santo Proctor M.D. DR: WARNER JOB#: [id number] CC:
[2020-07-20] MEDS: Heparin 5000 units/ml inj SUBQ SCH (21:00)
[2020-07-20] MEDS: cefTRIAXone 1 GM in D5W 55 ML IVPB SCH (23:06)
[2020-07-21] VITALS: BP 150/89
[2020-07-21 04:00] VITALS: BP 145/86
[2020-07-21] MEDS: HydrALAZINE 10mg Tab ORAL SCH ×3 (05:24→17:47)
[2020-07-21] MEDS: D5 1/2NS w/KCl 20mEq 1,000 ML IV SCH (05:50)
[2020-07-21] MEDS: Haloperidol 5mg/ml Inj IM PRN (05:50)
[2020-07-21 08:00] VITALS: BP 131/75
[2020-07-21] MEDS: Heparin 5000 units/ml inj SUBQ SCH ×2 (08:55→20:26)
--- NOTE | 2020-07-21 09:11 | Pulmonology Progress Note ---
Subjective Interval Events: None new Constitutional: Reports: no symptoms HEENT: Repors: no symptoms Respiratory: Reports: dry cough Cardiovascular: Reports: no symptoms Gastrointestinal/Abdominal: Reports: other - unable to swallow Allergies: Coded Allergies: No Known Allergies (Unverified , 02/05/19) Objective Last 24 Hour Vital Signs Date Time Temp Pulse Resp B/P (MAP) Pulse Ox O2 Delivery O2 Flow Rate FiO2 07/21/20 08:00 97.9 89 18 131/75 (93) 97 07/21/20 05:24 145/89 07/21/20 04:00 97.4 82 18 145/86 (105) 98 07/21/20 00:00 97.7 78 20 150/89 (109) 98 07/20/20 23:35 95 18 131/80 95 07/20/20 23:05 139/87 07/20/20 23:05 95 18 133/82 95 07/20/20 21:00 Room Air 07/20/20 20:00 98.1 95 18 139/87 (104) 95 07/20/20 16:00 97.6 82 18 128/69 (88) 97 07/20/20 12:00 98.0 79 19 130/70 (90) 97 Intake and Output 07/20/20 07/21/20 19:00 07:00 Intake Total 150 ml 655 ml Balance 150 ml 655 ml IV Total 150 ml 655 ml # Voids 2 General Appearance: no acute distress HEENT: normocephalic, other - neck mass+ Respiratory: chest wall non-tender, lungs clear Cardiovascular: normal peripheral pulses, normal rate Abdomen: normal bowel sounds, soft, non tender Extremities: no cyanosis Current Medications Medications (Trade) Dose Ordered Sig/Alexei Route PRN Reason Start Time Stop Time Status Last Admin Dose Admin Barium Sulfate (Varibar Honey) 250 ml NOW PRN RAD 07/20/20 14:45 07/23/20 14:38 Barium Sulfate (Varibar [place]) 240 ml NOW PRN MC RAD 07/20/20 14:45 07/23/20 14:38 Barium Sulfate (Varibar Pudding) 230 ml NOW PRN MC RAD 07/20/20 14:45 07/23/20 14:38 Barium Sulfate (Varibar Thin Liquid powder) 148 gm NOW PRN MC RAD 07/20/20 14:45 07/23/20 14:38 Ceftriaxone Sodium 1 gm/ Dextrose 55 ml @ 110 mls/hr Q24H IVPB 07/20/20 23:00 07/27/20 22:59 07/20/20 23:06 Dextrose/ Electrolytes 1,000 ml @ 50 mls/hr Q20H IV 07/20/20 11:00 08/19/20 10:59 07/21/20 05:50 Haloperidol Lactate (Haldol) 2.5 mg Q12H PRN IM Agitation 07/20/20 14:00 09/03/20 13:59 07/21/20 05:50 Heparin Sodium (Porcine) (Heparin 5000 units/ml) 5,000 units EVERY 12 HOURS SUBQ 07/20/20 21:00 09/03/20 20:59 07/21/20 08:55 Hydralazine HCl (Apresoline) 10 mg Q6HR ORAL 07/20/20 12:00 10/18/20 11:59 07/20/20 23:05 Lorazepam (Ativan) 1 mg BEDTIME PRN ORAL Insomnia 07/20/20 03:15 07/27/20 03:14 07/20/20 23:05 Assessment/Plan Assessment/Plan IMPRESSION: 1. 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 3. Difficulty swallowing. 4. Possible right upper lobe pneumonia. 5. Leukocytosis. 6. Hypokalemia. 7. Failure to thrive. 8. Dysphagia. 9. Dementia DISCUSSION: Discussed with family. She will need to be transferred to contracted facility given lack of ENT at our facility. She needs to have biopsy of this mass. Control blood pressure with medications. Continue broad-spectrum antibiotics. IV fluids to be given. Obtain swallow evaluation. Haldol and Ativan for agitation; has underlying dementia I will follow carefully. Melanie Hickman Omar Syed MD Jul 21, 2020 09:11
[2020-07-21 10:18] LABS: BASOPHILS % (AUTO) 0.8 % (0.0-2.0); EOSINOPHILS % (AUTO) 4.4 % (0.0-3.0); HEMATOCRIT 41.1 % (37.0-47.0); HEMOGLOBIN 13.9 G/DL (12.0-16.0); LYMPHOCYTES % (AUTO) 14.1 % (20.0-45.0); MEAN CORPUSCULAR VOLUME 85 FL (80-99); MONOCYTES % (AUTO) 8.1 % (1.0-10.0); NEUTROPHILS % (AUTO) 72.5 % (45.0-75.0); PLATELET COUNT 355 K/UL (150-450); RED BLOOD COUNT 4.82 M/UL (4.20-5.40); RED CELL DISTRIBUTION WIDTH 13.6 % (11.6-14.8); WHITE BLOOD COUNT 15.7 K/UL (4.8-10.8)
[2020-07-21 11:46] LABS: ANION GAP 9 mmol/L (5-15); BLOOD UREA NITROGEN 7 mg/dL (7-18); CALCIUM 8.3 MG/DL (8.5-10.1); CARBON DIOXIDE 25 MMOL/L (21-32); CHLORIDE 106 MMOL/L (98-107); CREATININE 0.7 MG/DL (0.55-1.30); POTASSIUM 3.3 MMOL/L (3.5-5.1); SODIUM 140 MMOL/L (136-145)
[2020-07-21 12:00] VITALS: BP 135/80
[2020-07-21 16:00] VITALS: BP 133/98
[2020-07-21 20:00] VITALS: BP 142/89
[2020-07-21] MEDS: cefTRIAXone 1 GM in D5W 55 ML IVPB SCH (23:33)
[2020-07-22] VITALS: BP 145/79
[2020-07-22] MEDS: D5 1/2NS w/KCl 20mEq 1,000 ML IV SCH (02:32)
[2020-07-22 04:00] VITALS: BP 157/90
[2020-07-22] MEDS: HydrALAZINE 10mg Tab ORAL SCH ×4 (06:00→18:00)
[2020-07-22 07:48] LABS: BASOPHILS % (AUTO) 0.8 % (0.0-2.0); EOSINOPHILS % (AUTO) 2.2 % (0.0-3.0); HEMATOCRIT 40.7 % (37.0-47.0); HEMOGLOBIN 13.7 G/DL (12.0-16.0); LYMPHOCYTES % (AUTO) 15.5 % (20.0-45.0); MEAN CORPUSCULAR VOLUME 87 FL (80-99); MONOCYTES % (AUTO) 7.3 % (1.0-10.0); NEUTROPHILS % (AUTO) 74.3 % (45.0-75.0); PLATELET COUNT 366 K/UL (150-450); RED BLOOD COUNT 4.67 M/UL (4.20-5.40); RED CELL DISTRIBUTION WIDTH 12.7 % (11.6-14.8); WHITE BLOOD COUNT 17.8 K/UL (4.8-10.8)
[2020-07-22 07:59] LABS: ANION GAP 7 mmol/L (5-15); BLOOD UREA NITROGEN 7 mg/dL (7-18); CALCIUM 8.7 MG/DL (8.5-10.1); CARBON DIOXIDE 26 MMOL/L (21-32); CHLORIDE 105 MMOL/L (98-107); CREATININE 0.7 MG/DL (0.55-1.30); POTASSIUM 3.4 MMOL/L (3.5-5.1); SODIUM 138 MMOL/L (136-145)
[2020-07-22 08:00] VITALS: BP 104/74
[2020-07-22] MEDS: Heparin 5000 units/ml inj SUBQ SCH ×2 (09:22→21:11)
--- NOTE | 2020-07-22 10:39 | Pulmonology Progress Note ---
Subjective Interval Events: None new Constitutional: Reports: no symptoms HEENT: Repors: no symptoms Respiratory: Reports: productive cough Cardiovascular: Reports: no symptoms Gastrointestinal/Abdominal: Reports: other - unable to swallow Allergies: Coded Allergies: No Known Allergies (Unverified , 02/05/19) Objective Last 24 Hour Vital Signs Date Time Temp Pulse Resp B/P (MAP) Pulse Ox O2 Delivery O2 Flow Rate FiO2 07/22/20 08:00 99.8 105 18 104/74 (84) 96 07/22/20 06:00 157/90 07/22/20 04:00 98.0 109 18 157/90 (112) 96 07/22/20 00:00 145/79 07/22/20 00:00 98.0 109 20 145/79 (101) 96 07/21/20 21:00 Room Air 07/21/20 20:00 98.5 111 18 142/89 (106) 94 07/21/20 17:47 133/98 07/21/20 16:00 97.9 93 18 133/98 (110) 97 07/21/20 12:00 97.8 91 18 135/80 (98) 97 07/21/20 11:47 131/75 Intake and Output 07/21/20 07/22/20 19:00 07:00 Intake Total 605 ml Balance 605 ml IV Total 605 ml # Voids 2 3 Objective 07/22 confused, on room air General Appearance: no acute distress HEENT: normocephalic, other - neck mass+ Respiratory: chest wall non-tender, lungs clear Cardiovascular: normal peripheral pulses, normal rate Abdomen: normal bowel sounds, soft, non tender Extremities: no cyanosis Laboratory Tests 07/22/20 05:15: White Blood Count 17.8H, Red Blood Count 4.67, Hemoglobin 13.7, Hematocrit 40.7, Mean Corpuscular Volume 87, Mean Corpuscular Hemoglobin 29.3, Mean Corpuscular Hemoglobin Concent 33.6, Red Cell Distribution Width 12.7, Platelet Count 366, Mean Platelet Volume 7.3, Neutrophils (%) (Auto) 74.3, Lymphocytes (%) (Auto) 15.5L, Monocytes (%) (Auto) 7.3, Eosinophils (%) (Auto) 2.2, Basophils (%) (Auto) 0.8, Sodium Level 138, Potassium Level 3.4L, Chloride Level 105, Carbon Dioxide Level 26, Anion Gap 7, Blood Urea Nitrogen 7, Creatinine 0.7, Estimat Glomerular Filtration Rate > 60, Glucose Level 106, Calcium Level 8.7 Current Medications Medications (Trade) Dose Ordered Sig/Alexei Route PRN Reason Start Time Stop Time Status Last Admin Dose Admin Barium Sulfate (Varibar Honey) 250 ml NOW PRN RAD 07/20/20 14:45 07/23/20 14:38 Barium Sulfate (Varibar [place]) 240 ml NOW PRN MC RAD 07/20/20 14:45 07/23/20 14:38 Barium Sulfate (Varibar Pudding) 230 ml NOW PRN RAD 07/20/20 14:45 07/23/20 14:38 Barium Sulfate (Varibar Thin Liquid powder) 148 gm NOW PRN RAD 07/20/20 14:45 07/23/20 14:38 Ceftriaxone Sodium 1 gm/ Dextrose 55 ml @ 110 mls/hr Q24H IVPB 07/20/20 23:00 07/27/20 22:59 07/21/20 23:33 Dextrose/ Electrolytes 1,000 ml @ 50 mls/hr Q20H IV 07/20/20 11:00 08/19/20 10:59 07/22/20 02:32 Haloperidol Lactate (Haldol) 2.5 mg Q12H PRN IM Agitation 07/20/20 14:00 09/03/20 13:59 07/21/20 05:50 Heparin Sodium (Porcine) (Heparin 5000 units/ml) 5,000 units EVERY 12 HOURS SUBQ 07/20/20 21:00 09/03/20 20:59 07/22/20 09:22 Hydralazine HCl (Apresoline) 10 mg Q6HR ORAL 07/20/20 12:00 10/18/20 11:59 07/20/20 23:05 Lorazepam (Ativan) 1 mg BEDTIME PRN ORAL Insomnia 07/20/20 03:15 07/27/20 03:14 07/20/20 23:05 Assessment/Plan Assessment/Plan 1. 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 - She will need to be transferred to contracted facility given lack of ENT at our facility. - She needs to have biopsy of this mass. 2. Tracheal deviation. 3. Difficulty swallowing. - ST eval pending 4. Possible right upper lobe pneumonia. - Continue broad-spectrum antibiotics. 5. Leukocytosis. 6. Hypokalemia. - K replaced; improving 7. Failure to thrive. 8. Dysphagia. - ST eval pending 9. Dementia - Haldol and Ativan for agitation; has underlying dementia 10. Hypertension - Control blood pressure with medications. Discussed with family. IV fluids given. We will follow carefully. The care for this patient was discussed with my supervising physician Time spent for this case was approximately 31 minutes Augustine Luque Jul 22, 2020 10:39
[2020-07-22 12:00] VITALS: BP_SYST 113; BP_SYST 119; BP_DIAS 65; BP_DIAS 66
[2020-07-22 12:45] LABS: BASOPHILS % (AUTO) 1.1 % (0.0-2.0); HEMATOCRIT 40.3 % (37.0-47.0); LYMPHOCYTES % (AUTO) 18.2 % (20.0-45.0); MEAN CORPUSCULAR VOLUME 83 FL (80-99); NEUTROPHILS % (AUTO) 69.8 % (45.0-75.0); PLATELET COUNT 391 K/UL (150-450); RED BLOOD COUNT 4.84 M/UL (4.20-5.40); RED CELL DISTRIBUTION WIDTH 14.2 % (11.6-14.8); WHITE BLOOD COUNT 17.3 K/UL (4.8-10.8)
[2020-07-22 13:32] LABS: ANION GAP 9 mmol/L (5-15); BLOOD UREA NITROGEN 9 mg/dL (7-18); CALCIUM 9.1 MG/DL (8.5-10.1); CARBON DIOXIDE 27 MMOL/L (21-32); CHLORIDE 104 MMOL/L (98-107); CREATININE 0.8 MG/DL (0.55-1.30); POTASSIUM 3.3 MMOL/L (3.5-5.1); SODIUM 140 MMOL/L (136-145)
--- NOTE | 2020-07-22 15:01 | General Progress Note ---
Subjective ROS Limited/Unobtainable: No Allergies: Coded Allergies: No Known Allergies (Unverified , 02/05/19) Objective Last 24 Hour Vital Signs Date Time Temp Pulse Resp B/P (MAP) Pulse Ox O2 Delivery O2 Flow Rate FiO2 07/22/20 12:00 97.6 96 18 119/65 (83) 97 07/22/20 09:00 Room Air 07/22/20 08:00 99.8 105 18 104/74 (84) 96 07/22/20 06:00 157/90 07/22/20 04:00 98.0 109 18 157/90 (112) 96 07/22/20 00:00 145/79 07/22/20 00:00 98.0 109 20 145/79 (101) 96 07/21/20 21:00 Room Air 07/21/20 20:00 98.5 111 18 142/89 (106) 94 07/21/20 17:47 133/98 07/21/20 16:00 97.9 93 18 133/98 (110) 97 Intake and Output 07/21/20 07/22/20 19:00 07:00 Intake Total 605 ml Balance 605 ml IV Total 605 ml # Voids 2 3 Laboratory Tests 07/22/20 05:15: White Blood Count 17.8H, Red Blood Count 4.67, Hemoglobin 13.7, Hematocrit 40.7, Mean Corpuscular Volume 87, Mean Corpuscular Hemoglobin 29.3, Mean Corpuscular Hemoglobin Concent 33.6, Red Cell Distribution Width 12.7, Platelet Count 366, Mean Platelet Volume 7.3, Neutrophils (%) (Auto) 74.3, Lymphocytes (%) (Auto) 15.5L, Monocytes (%) (Auto) 7.3, Eosinophils (%) (Auto) 2.2, Basophils (%) (Auto) 0.8, Sodium Level 138, Potassium Level 3.4L, Chloride Level 105, Carbon Dioxide Level 26, Anion Gap 7, Blood Urea Nitrogen 7, Creatinine 0.7, Estimat Glomerular Filtration Rate > 60, Glucose Level 106, Calcium Level 8.7 07/22/20 11:37: White Blood Count 17.3H, Red Blood Count 4.84, Hemoglobin 14.0, Hematocrit 40.3, Mean Corpuscular Volume 83, Mean Corpuscular Hemoglobin 28.9, Mean Corpuscular Hemoglobin Concent 34.6, Red Cell Distribution Width 14.2, Platelet Count 391, Mean Platelet Volume 7.5, Neutrophils (%) (Auto) 69.8, Lymphocytes (%) (Auto) 18.2L, Monocytes (%) (Auto) 8.0, Eosinophils (%) (Auto) 3.0, Basophils (%) (Auto) 1.1, Sodium Level 140, Potassium Level 3.3L, Chloride Level 104, Carbon Dioxide Level 27, Anion Gap 9, Blood Urea Nitrogen 9, Creatinine 0.8, Estimat Glomerular Filtration Rate > 60, Glucose Level 117H, Calcium Level 9.1 Height (Feet): 5 Height (Inches): 4.00 Weight (Pounds): 160 General Appearance: alert EENT: normal ENT inspection Neck: supple Cardiovascular: normal rate Respiratory/Chest: decreased breath sounds Abdomen: normal bowel sounds, non tender, soft Extremities: non-tender Assessment/Plan Assessment/Plan: 1. Large neck mass, 2. Tracheal deviation. 3. Difficulty swallowing. - ST eval pending 4. Possible right upper lobe pneumonia. 5. Leukocytosis. 6. Failure to thrive. 7. Dysphagia. - ST eval pending 8. Dementia 9. Hypertension d/w her family plan swallow eval will Andrea Garcia MD Jul 22, 2020 15:01
[2020-07-22] MEDS: Haloperidol 5mg/ml Inj IM PRN (15:19)
[2020-07-22] MEDS ORDERED: CARDIZEM60 MG ORAL (15:50)
[2020-07-22 16:00] VITALS: BP 166/102
[2020-07-22 20:00] VITALS: BP 164/82
[2020-07-23] VITALS: BP 170/83
[2020-07-23] MEDS: D5 1/2NS w/KCl 20mEq 1,000 ML IV SCH ×2 (00:21→18:18)
[2020-07-23] MEDS: cefTRIAXone 1 GM in D5W 55 ML IVPB SCH ×2 (00:21→22:59)
[2020-07-23] MEDS: HydrALAZINE 10mg Tab ORAL SCH ×4 (00:21→18:16)
[2020-07-23 04:00] VITALS: BP 174/94
[2020-07-23 08:00] VITALS: BP 146/72
--- NOTE | 2020-07-23 09:03 | General Progress Note ---
Subjective ROS Limited/Unobtainable: No Allergies: Coded Allergies: No Known Allergies (Unverified , 02/05/19) Objective Last 24 Hour Vital Signs Date Time Temp Pulse Resp B/P (MAP) Pulse Ox O2 Delivery O2 Flow Rate FiO2 07/23/20 08:00 97.5 124 20 146/72 (96) 98 07/23/20 05:41 174/94 07/23/20 04:00 97.6 107 18 174/94 (120) 96 07/23/20 04:00 111 07/23/20 03:59 174/94 07/23/20 00:21 170/83 07/23/20 00:00 98.0 116 18 170/83 (112) 96 07/23/20 00:00 111 07/22/20 21:11 164/82 07/22/20 21:00 Room Air 07/22/20 20:00 109 07/22/20 20:00 98.1 100 18 164/82 (109) 95 07/22/20 18:00 169/81 07/22/20 16:00 98.9 114 18 166/102 (123) 97 07/22/20 12:00 97.6 96 18 119/65 (83) 97 Intake and Output 07/22/20 07/23/20 19:00 07:00 Intake Total 50 ml 20 ml Balance 50 ml 20 ml Intake Oral 20 ml IV Total 50 ml # Voids 1 3 Laboratory Tests 07/22/20 11:37: White Blood Count 17.3H, Red Blood Count 4.84, Hemoglobin 14.0, Hematocrit 40.3, Mean Corpuscular Volume 83, Mean Corpuscular Hemoglobin 28.9, Mean Corpuscular Hemoglobin Concent 34.6, Red Cell Distribution Width 14.2, Platelet Count 391, Mean Platelet Volume 7.5, Neutrophils (%) (Auto) 69.8, Lymphocytes (%) (Auto) 18.2L, Monocytes (%) (Auto) 8.0, Eosinophils (%) (Auto) 3.0, Basophils (%) (Auto) 1.1, Sodium Level 140, Potassium Level 3.3L, Chloride Level 104, Carbon Dioxide Level 27, Anion Gap 9, Blood Urea Nitrogen 9, Creatinine 0.8, Estimat Glomerular Filtration Rate > 60, Glucose Level 117H, Calcium Level 9.1 Height (Feet): 5 Height (Inches): 4.00 Weight (Pounds): 160 General Appearance: no apparent distress EENT: normal ENT inspection Neck: supple Cardiovascular: normal rate Respiratory/Chest: decreased breath sounds Abdomen: normal bowel sounds, non tender, soft Extremities: non-tender Assessment/Plan Assessment/Plan: 1. Large neck mass, 2. Tracheal deviation. 3. Difficulty swallowing. - ST eval pending 4. Possible right upper lobe pneumonia. 5. Leukocytosis. 6. Failure to thrive. 7. Dysphagia. - ST eval pending 8. Dementia 9. Hypertension failed swallow eval needs PEG plan either today or tomorrow Andrea Kumar MD Jul 23, 2020 09:03
[2020-07-23] MEDS ORDERED: Tubing IV Secondary IV ONE (10:23)
--- NOTE | 2020-07-23 11:46 | Pulmonology Progress Note ---
Subjective ROS Limited/Unobtainable: No Interval Events: None new Constitutional: Reports: no symptoms HEENT: Repors: no symptoms Respiratory: Reports: productive cough Cardiovascular: Reports: no symptoms Gastrointestinal/Abdominal: Reports: other - unable to swallow Allergies: Coded Allergies: No Known Allergies (Unverified , 02/05/19) Objective Last 24 Hour Vital Signs Date Time Temp Pulse Resp B/P (MAP) Pulse Ox O2 Delivery O2 Flow Rate FiO2 07/23/20 08:00 99 07/23/20 08:00 97.5 124 20 146/72 (96) 98 07/23/20 05:41 174/94 07/23/20 04:00 97.6 107 18 174/94 (120) 96 07/23/20 04:00 111 07/23/20 03:59 174/94 07/23/20 00:21 170/83 07/23/20 00:00 98.0 116 18 170/83 (112) 96 07/23/20 00:00 111 07/22/20 21:11 164/82 07/22/20 21:00 Room Air 07/22/20 20:00 109 07/22/20 20:00 98.1 100 18 164/82 (109) 95 07/22/20 18:00 169/81 07/22/20 16:00 98.9 114 18 166/102 (123) 97 07/22/20 12:00 97.6 96 18 119/65 (83) 97 Intake and Output 07/22/20 07/23/20 19:00 07:00 Intake Total 50 ml 20 ml Balance 50 ml 20 ml Intake Oral 20 ml IV Total 50 ml # Voids 1 3 Objective 07/23 remains on room air; failed ST eval 07/22 confused, on room air General Appearance: no acute distress HEENT: normocephalic, other - neck mass+ Respiratory: chest wall non-tender, lungs clear Cardiovascular: normal peripheral pulses, normal rate Abdomen: normal bowel sounds, soft, non tender Extremities: no cyanosis Current Medications Medications (Trade) Dose Ordered Sig/Alexei Route PRN Reason Start Time Stop Time Status Last Admin Dose Admin Barium Sulfate (Varibar Honey) 250 ml NOW PRN MC RAD 07/20/20 14:45 07/23/20 14:38 Barium Sulfate (Varibar Bear Grass) 240 ml NOW PRN MC RAD 07/20/20 14:45 07/23/20 14:38 Barium Sulfate (Varibar Pudding) 230 ml NOW PRN RAD 07/20/20 14:45 07/23/20 14:38 Barium Sulfate (Varibar Thin Liquid powder) 148 gm NOW PRN RAD 07/20/20 14:45 07/23/20 14:38 Ceftriaxone Sodium 1 gm/ Dextrose 55 ml @ 110 mls/hr Q24H IVPB 07/20/20 23:00 07/27/20 22:59 07/23/20 00:21 Dextrose/ Electrolytes 1,000 ml @ 50 mls/hr Q20H IV 07/20/20 11:00 08/19/20 10:59 07/23/20 00:21 Haloperidol Lactate (Haldol) 2.5 mg Q12H PRN IM Agitation 07/20/20 14:00 09/03/20 13:59 07/22/20 15:19 Heparin Sodium (Porcine) (Heparin 5000 units/ml) 5,000 units EVERY 12 HOURS SUBQ 07/20/20 21:00 09/03/20 20:59 07/22/20 21:11 Hydralazine HCl (Apresoline) 5 mg Q6H PRN IV For High Blood Pressure 07/22/20 19:15 10/20/20 19:14 07/23/20 03:59 Hydralazine HCl (Apresoline) 10 mg Q6HR ORAL 07/20/20 12:00 10/18/20 11:59 07/23/20 05:41 Lorazepam (Ativan) 1 mg BEDTIME PRN ORAL Insomnia 07/20/20 03:15 07/27/20 03:14 07/20/20 23:05 Assessment/Plan Assessment/Plan 1. 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 - She will need to be transferred to contracted facility given lack of ENT at our facility. - She needs to have biopsy of this mass. 2. Tracheal deviation. 3. Dysphagia - Pt failed ST eval - will need PEG per GI - rapid COVID-19 test prior to EGD -negative 4. Possible right upper lobe pneumonia. - Continue broad-spectrum antibiotics. 5. Leukocytosis. 6. Hypokalemia. - K replaced; improving - on Dextrose with KCl 7. Failure to thrive. 8. Dementia - Haldol and Ativan for agitation; has underlying dementia 9. Hypertension - on IV hydralazine prn Discussed with family. IV fluids given. We will follow carefully. The care for this patient was discussed with my supervising physician Time spent for this case was approximately 31 minutes Augustine Luque Jul 23, 2020 11:46
[2020-07-23 12:00] VITALS: BP 159/90
[2020-07-23] MEDS: Heparin 5000 units/ml inj SUBQ SCH ×2 (13:29→20:07)
[2020-07-23 16:00] VITALS: BP 182/101
[2020-07-23 20:00] VITALS: BP 164/97
[2020-07-24] VITALS (10 sets, daily range): BP systolic 136–172; BP diastolic 70–93
[2020-07-24] MEDS: HydrALAZINE 10mg Tab ORAL SCH ×5 (00:05→23:23)
[2020-07-24] MEDS ORDERED: Esmolol 100mg/10ml Inj ONE (06:30)
[2020-07-24] MEDS ORDERED: Lidocaine 1% MPF 10mg/ml 5ml ONE (06:30)
[2020-07-24] MEDS ORDERED: NS 500ML IVPB ONE (06:50)
--- NOTE | 2020-07-24 06:58 | Pre-Procedure Note/Attestation ---
Pre-Procedure Note/Attestation Complete Prior to Procedure Planned Procedure: not applicable Procedure Narrative: egd/peg Indications for Procedure Pre-Operative Diagnosis: dysphgaia Attestation I attest that I discussed the nature of the procedure; its benefits; risks and complications; and alternatives (and the risks and benefits of such alternatives), prior to the procedure, with the patient (or the patient's legal labor relations representative). I attest that, if there was a reasonable possibility of needing a blood transfu jerrica, the patient (or the patient's legal labor relations representative) was given the [facility] standardized written summary, pursuant to the Spencer Brittanie Blood Safety Act ([place] Health and Safety Code # 1645, as amended). I attest that I re-evaluated the patient just prior to the surgery and that there has been no change in the patient's H&P, except as documented below: Andrea Kumar MD Jul 24, 2020 06:58
[2020-07-24] MEDS ORDERED: Midazolam 2mg/2ml Inj IVP PRN (07:00)
[2020-07-24] MEDS ORDERED: fentaNYL 100 mcg/2 mL IV PRN (07:00)
[2020-07-24] MEDS ORDERED: Atropine Inj 1mg/10ml Syr IVP PRN (07:00)
[2020-07-24] MEDS ORDERED: DiphenhydrAMINE 50mg/ml Inj IVP PRN (07:00)
--- NOTE | 2020-07-24 07:10 | Anethesia Preoperative Eval ---
Anesthesia Pre-op PMH/ROS General Date of Evaluation: Jul 24, 2020 Time of Evaluation: 06:45 Anesthesiologist: bruce ASA Score: ASA 4 Mallampati Score Class I : Soft palate, uvula, fauces, pillars visible Class II: Soft palate, uvula, fauces visible Class III: Soft palate, base of uvula visible Class IV: Only hard plate visible Mallampati Classification: Class II Surgeon: gualberto Diagnosis: dysphagia Surgical Procedure: egd/peg Anesthesia History: none Social History: smoking - nonsmoker Family History: no anesthesia problems Allergies: Coded Allergies: No Known Allergies (Unverified , 02/05/19) Medications: see eMAR Patient NPO?: Yes Past Medical History Cardiovascular: Reports: HTN Neurologic/Psychiatric: Reports: dementia Endocrine: Reports: hypothyroidism Anesthesia Pre-op Phys. Exam Physician Exam Last Vital Signs Date Time Temp Pulse Resp B/P (MAP) Pulse Ox O2 Delivery O2 Flow Rate FiO2 07/24/20 05:32 143/83 07/24/20 04:00 97.7 120 20 98 07/23/20 21:00 Room Air Constitutional: NAD Cardiovascular: other - tachycardia Respiratory: CTA Gastrointestinal: S/NT/ND Airway Exam Mallampati Score: Class II MO: limited Neck: neck mass TMD: 2fb ROM: limited Teeth: missing Anesthesia Pre-op A/P Labs Microbiology Date/Time Source Procedure Growth Status 07/23/20 11:30 Nasopharynx SARS-CoV-2 RdRp Gene Assay - Final Complete Labs Test 07/21/20 08:45 07/22/20 05:15 07/22/20 11:37 White Blood Count 15.7 K/UL (4.8-10.8) 17.8 K/UL (4.8-10.8) 17.3 K/UL (4.8-10.8) Red Blood Count 4.82 M/UL (4.20-5.40) 4.67 M/UL (4.20-5.40) 4.84 M/UL (4.20-5.40) Hemoglobin 13.9 G/DL (12.0-16.0) 13.7 G/DL (12.0-16.0) 14.0 G/DL (12.0-16.0) Hematocrit 41.1 % (37.0-47.0) 40.7 % (37.0-47.0) 40.3 % (37.0-47.0) Mean Corpuscular Volume 85 FL (80-99) 87 FL (80-99) 83 FL (80-99) Mean Corpuscular Hemoglobin 28.8 PG (27.0-31.0) 29.3 PG (27.0-31.0) 28.9 PG (27.0-31.0) Mean Corpuscular Hemoglobin Concent 33.8 G/DL (32.0-36.0) 33.6 G/DL (32.0-36.0) 34.6 G/DL (32.0-36.0) Red Cell Distribution Width 13.6 % (11.6-14.8) 12.7 % (11.6-14.8) 14.2 % (11.6-14.8) Platelet Count 355 K/UL (150-450) 366 K/UL (150-450) 391 K/UL (150-450) Mean Platelet Volume 7.3 FL (6.5-10.1) 7.3 FL (6.5-10.1) 7.5 FL (6.5-10.1) Neutrophils (%) (Auto) 72.5 % (45.0-75.0) 74.3 % (45.0-75.0) 69.8 % (45.0-75.0) Lymphocytes (%) (Auto) 14.1 % (20.0-45.0) 15.5 % (20.0-45.0) 18.2 % (20.0-45.0) Monocytes (%) (Auto) 8.1 % (1.0-10.0) 7.3 % (1.0-10.0) 8.0 % (1.0-10.0) Eosinophils (%) (Auto) 4.4 % (0.0-3.0) 2.2 % (0.0-3.0) 3.0 % (0.0-3.0) Basophils (%) (Auto) 0.8 % (0.0-2.0) 0.8 % (0.0-2.0) 1.1 % (0.0-2.0) Sodium Level 140 MMOL/L (136-145) 138 MMOL/L (136-145) 140 MMOL/L (136-145) Potassium Level 3.3 MMOL/L (3.5-5.1) 3.4 MMOL/L (3.5-5.1) 3.3 MMOL/L (3.5-5.1) Chloride Level 106 MMOL/L (98-107) 105 MMOL/L (98-107) 104 MMOL/L (98-107) Carbon Dioxide Level 25 MMOL/L (21-32) 26 MMOL/L (21-32) 27 MMOL/L (21-32) Anion Gap 9 mmol/L (5-15) 7 mmol/L (5-15) 9 mmol/L (5-15) Blood Urea Nitrogen 7 mg/dL (7-18) 7 mg/dL (7-18) 9 mg/dL (7-18) Creatinine 0.7 MG/DL (0.55-1.30) 0.7 MG/DL (0.55-1.30) 0.8 MG/DL (0.55-1.30) Estimat Glomerular Filtration Rate > 60 mL/min (>60) > 60 mL/min (>60) > 60 mL/min (>60) Glucose Level 117 MG/DL (74-106) 106 MG/DL (74-106) 117 MG/DL (74-106) Calcium Level 8.3 MG/DL (8.5-10.1) 8.7 MG/DL (8.5-10.1) 9.1 MG/DL (8.5-10.1) Risk Assessment & Plan Assessment: [email or web address] Plan: mac Status Change Before Surgery: No Pre-Antibiotics Drug: Vannessa Mcdermott MD Jul 24, 2020 07:10
--- NOTE | 2020-07-24 07:15 | Endoscopy Procedure Note ---
Endoscopy Procedure Note General Indication for Procedure: dysphgaia Procedures Performed: EGD Operative Findings/Diagnosis: same Specimen: none Pt Tolerated Procedure Well: Yes Estimated Blood Loss: none Anesthesia Anesthesiologist: fredis Anesthesia: MAC Inserted Devices Implant(s) used?: No GI Core Measures 50 yrs or older w/o bx or poly: Not Applicable 10yrs. F/U recommended: Not Applicable Andrea Kumar MD Jul 24, 2020 07:15
[2020-07-24 07:35] LABS: BASOPHILS % (AUTO) 1.1 % (0.0-2.0); HEMATOCRIT 43.9 % (37.0-47.0); HEMOGLOBIN 14.1 G/DL (12.0-16.0); LYMPHOCYTES % (AUTO) 15.2 % (20.0-45.0); MEAN CORPUSCULAR VOLUME 89 FL (80-99); MONOCYTES % (AUTO) 7.5 % (1.0-10.0); NEUTROPHILS % (AUTO) 73.3 % (45.0-75.0); PLATELET COUNT 401 K/UL (150-450); RED BLOOD COUNT 4.96 M/UL (4.20-5.40); RED CELL DISTRIBUTION WIDTH 13.2 % (11.6-14.8); WHITE BLOOD COUNT 14.8 K/UL (4.8-10.8)
[2020-07-24] MEDS: Heparin 5000 units/ml inj SUBQ SCH ×2 (08:22→21:10)
--- NOTE | 2020-07-24 08:30 | Procedure Note ---
DATE OF PROCEDURE: 07/24/2020 SURGEON: Andrea Kumar MD. PROCEDURE: Upper endoscopy with PEG placement. ANESTHESIA: Per Eva BURGOS MD. INSTRUMENT: Olympus adult flexible upper endoscope. INDICATION: Dysphagia. REASON FOR PROCEDURE: The procedure, risks, benefits, and possible consequences, including hemorrhage, aspiration, perforation and infection, and alternative treatments, were explained to the patient/legal guardian by Dr. Andrea Kumar and the patient/legal guardian understood and accepted these risks. PROCEDURE IN DETAIL: After informed consent was obtained and the patient was adequately sedated, Olympus upper endoscope was advanced from mouth into the second portion of the duodenum and retroflexion was performed in the stomach. Then, under endoscopic guidance and under sterile condition, a 20-Armenian pull type of G-tube was successfully placed in epigastric area. The distance from the tip of the tube to skin was about 2.5 cm in size. The patient tolerated the procedure very well without any complication. SUMMARY OF FINDING: Status post successful PEG placement. RECOMMENDATIONS: 1. Abdominal binder. 2. Elevate the head of the bed all time. 3. G-tube flush. 4. G-tube care. 5. Start tube feeding later today. The patient received a dose of antibiotics prior to this procedure. I want to thank, Dr. Proctor for this kind referral. Andrea Kumar M.D. DR: Francheska JOB#: [id number] CC: Santo Proctor M.D.; Fax#: [phone]
[2020-07-24 08:36] LABS: ALANINE AMINOTRANSFERASE 18 U/L (12-78); ALBUMIN 2.8 G/DL (3.4-5.0); ALBUMIN/GLOBULIN RATIO 0.6 (1.0-2.7); ALKALINE PHOSPHATASE 78 U/L (46-116); ANION GAP 7 mmol/L (5-15); ASPARTATE AMINO TRANSFERASE 24 U/L (15-37); BILIRUBIN,TOTAL 1.1 MG/DL (0.2-1.0); BLOOD UREA NITROGEN 13 mg/dL (7-18); CALCIUM 8.8 MG/DL (8.5-10.1); CARBON DIOXIDE 29 MMOL/L (21-32); CHLORIDE 104 MMOL/L (98-107); CREATININE 0.7 MG/DL (0.55-1.30); POTASSIUM 3.3 MMOL/L (3.5-5.1); SODIUM 140 MMOL/L (136-145)
[2020-07-24 08:40] LABS: BILIRUBIN,DIRECT 0.4 MG/DL (0.0-0.3)
--- NOTE | 2020-07-24 10:15 | Procedure Note ---
DATE OF PROCEDURE: 07/24/2020 SURGEON: Andrea Kumar MD. PROCEDURE: Upper endoscopy with PEG placement. ANESTHESIA: Per MD Eva. INSTRUMENT: Olympus adult flexible upper endoscope. INDICATION: Dysphagia. REASON FOR PROCEDURE: The procedure, risks, benefits, and possible consequences, including hemorrhage, aspiration, perforation and infection, and alternative treatments, were explained to the patient/legal guardian by Dr. Andrea Kumar and the patient/legal guardian understood and accepted these risks. PROCEDURE IN DETAIL: After informed consent was obtained and the patient was adequately sedated, Olympus upper endoscope was advanced from mouth into the second portion of the duodenum and retroflexion was performed in the stomach. Then, under endoscopic guidance and under sterile condition, a 20-Moroccan pull type of G-tube was successfully placed in epigastric area. The distance from the tip of the tube to skin was about 2.5 cm in size. The patient tolerated the procedure very well without any complication. SUMMARY OF FINDING: Status post successful PEG placement. RECOMMENDATIONS: 1. Abdominal binder. 2. Elevate the head of the bed all time. 3. G-tube flush. 4. G-tube care. 5. Start tube feeding later today. The patient received a dose of antibiotics prior to this procedure. I want to thank, Dr. Proctor for this kind referral. Andrea Kumar M.D. DR: Francheska JOB#: [id number] CC: Santo Proctor M.D.; Fax#: [phone]
--- NOTE | 2020-07-24 10:16 | Immediate Post-Op Evaluation ---
Immediate Post-Op Evalulation Immediate Post-Op Evalulation Procedure: peg Date of Evaluation: Jul 24, 2020 Time of Evaluation: 07:33 IV Fluids: 250ml 0.9ns Blood Products: none Estimated Blood Loss: negligible Blood Pressure Systolic: 148 Blood Pressure Diastolic: 78 Pulse Rate: 81 Respiratory Rate: 18 O2 Sat by Pulse Oximetry: 99 Temperature (Fahrenheit): 99.1 Pain Score (1-10): 0 Nausea: No Vomiting: No Complications none Patient Status: awake, reacts, patent Hydration Status: adequate Drug: Vannessa Mcdermott MD Jul 24, 2020 10:15
--- NOTE | 2020-07-24 10:17 | 48 Hour Post Anesthesia Eval ---
Post Anesthesia Evaluation Procedure: peg Date of Evaluation: Jul 24, 2020 Time of Evaluation: 07:35 Blood Pressure Systolic: 170 0: 75 Pulse Rate: 89 Respiratory Rate: 18 Temperature (Fahrenheit): 99.1 O2 Sat by Pulse Oximetry: 99 Airway: patent Nausea: No Vomiting: No Pain Intensity: 0 Hydration Status: adequate Cardiopulmonary Status: stable Mental Status/LOC: patient returned to baseline Post-Anesthesia Complications: none Follow-up care needed: N/A Vannessa Malin MD Jul 24, 2020 10:17
--- NOTE | 2020-07-24 12:49 | Pulmonology Progress Note ---
Subjective ROS Limited/Unobtainable: No Interval Events: None new Constitutional: Reports: no symptoms HEENT: Repors: no symptoms Respiratory: Reports: productive cough Cardiovascular: Reports: no symptoms Allergies: Coded Allergies: No Known Allergies (Unverified , 02/05/19) Objective Last 24 Hour Vital Signs Date Time Temp Pulse Resp B/P (MAP) Pulse Ox O2 Delivery O2 Flow Rate FiO2 07/24/20 12:22 143/93 07/24/20 12:00 97.5 109 20 143/93 (110) 97 07/24/20 12:00 80 07/24/20 10:17 89 18 99 07/24/20 10:16 81 18 99 07/24/20 09:00 Room Air 07/24/20 08:00 94 07/24/20 07:40 98.8 89 21 158/80 99 Room Air 07/24/20 07:30 89 19 170/75 99 Room Air 07/24/20 07:25 90 20 156/84 98 Room Air 07/24/20 07:21 99.1 88 18 146/78 99 Nasal Cannula 3 07/24/20 05:32 143/83 07/24/20 04:00 97.7 120 20 143/83 (103) 98 07/24/20 04:00 102 07/24/20 00:05 161/92 07/24/20 00:00 105 07/24/20 00:00 97.7 114 20 138/70 (92) 96 07/23/20 22:59 164/97 07/23/20 21:00 Room Air 07/23/20 20:00 98.7 124 20 164/97 (119) 98 07/23/20 20:00 105 07/23/20 18:16 150/75 07/23/20 16:50 182/101 07/23/20 16:00 97.9 117 22 182/101 (128) 97 07/23/20 16:00 108 07/23/20 13:27 159/90 Intake and Output 07/23/20 07/24/20 19:00 07:00 Intake Total 10 ml Balance 10 ml Intake Oral 10 ml # Voids 2 Objective 07/24 room air; s/p PEG 07/23 remains on room air; failed ST eval 07/22 confused, on room air General Appearance: no acute distress HEENT: normocephalic, other - neck mass+, PEG Respiratory: chest wall non-tender, lungs clear Cardiovascular: normal peripheral pulses, normal rate Abdomen: normal bowel sounds, soft, non tender Extremities: no cyanosis Microbiology Date/Time Source Procedure Growth Status 07/23/20 11:30 Nasopharynx SARS-CoV-2 RdRp Gene Assay - Final Complete Laboratory Tests 07/24/20 06:29: White Blood Count 14.8H, Red Blood Count 4.96, Hemoglobin 14.1, Hematocrit 43.9, Mean Corpuscular Volume 89, Mean Corpuscular Hemoglobin 28.5, Mean Corpuscular Hemoglobin Concent 32.2, Red Cell Distribution Width 13.2, Platelet Count 401, Mean Platelet Volume 7.3, Neutrophils (%) (Auto) 73.3, Lymphocytes (%) (Auto) 15.2L, Monocytes (%) (Auto) 7.5, Eosinophils (%) (Auto) 3.0, Basophils (%) (Auto) 1.1, Sodium Level 140, Potassium Level 3.3L, Chloride Level 104, Carbon Dioxide Level 29, Anion Gap 7, Blood Urea Nitrogen 13, Creatinine 0.7, Estimat Glomerular Filtration Rate > 60, Glucose Level 117H, Calcium Level 8.8, Total Bilirubin 1.1H, Direct Bilirubin 0.4H, Aspartate Amino Transf (AST/SGOT) 24, Alanine Aminotransferase (ALT/SGPT) 18, Alkaline Phosphatase 78, Total Protein 7.6, Albumin 2.8L, Globulin 4.8, Albumin/Globulin Ratio 0.6L Current Medications Medications (Trade) Dose Ordered Sig/Alexei Route PRN Reason Start Time Stop Time Status Last Admin Dose Admin Ceftriaxone Sodium 1 gm/ Dextrose 55 ml @ 110 mls/hr Q24H IVPB 07/20/20 23:00 07/27/20 22:59 07/23/20 22:59 Dextrose/ Electrolytes 1,000 ml @ 50 mls/hr Q20H IV 07/20/20 11:00 08/19/20 10:59 07/23/20 18:18 Haloperidol Lactate (Haldol) 2.5 mg Q12H PRN IM Agitation 07/20/20 14:00 09/03/20 13:59 07/22/20 15:19 Heparin Sodium (Porcine) (Heparin 5000 units/ml) 5,000 units EVERY 12 HOURS SUBQ 07/20/20 21:00 09/03/20 20:59 07/24/20 08:22 Hydralazine HCl (Apresoline) 5 mg Q6H PRN IV For High Blood Pressure 07/22/20 19:15 10/20/20 19:14 07/23/20 22:59 Hydralazine HCl (Apresoline) 10 mg Q6HR ORAL 07/20/20 12:00 10/18/20 11:59 07/24/20 12:22 Lorazepam (Ativan) 1 mg BEDTIME PRN ORAL Insomnia 07/20/20 03:15 07/27/20 03:14 07/20/20 23:05 Assessment/Plan Assessment/Plan 1. 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 - She will need to be transferred to contracted facility given lack of ENT at our facility. - She needs to have biopsy of this mass. 2. Tracheal deviation. 3. Dysphagia - Pt failed ST eval - s/p PEG - rapid COVID-19 test prior to EGD -negative 4. Possible right upper lobe pneumonia. - Continue broad-spectrum antibiotics. 5. Leukocytosis. 6. Hypokalemia. - K replaced; improving - on Dextrose with KCl 7. Failure to thrive. 8. Dementia - Haldol and Ativan for agitation; has underlying dementia 9. Hypertension - on IV hydralazine prn IV fluids given. Discussed with family. Will be d/w daughter, Tirso Claudio We will follow carefully. The care for this patient was discussed with my supervising physician Time spent for this case was approximately 31 minutes Augustine Luque Jul 24, 2020 12:49
[2020-07-24] MEDS: D5 1/2NS w/KCl 20mEq 1,000 ML IV SCH (15:11)
[2020-07-24] MEDS: cefTRIAXone 1 GM in D5W 55 ML IVPB SCH (23:22)
[2020-07-25] VITALS: BP 149/68
[2020-07-25 04:00] VITALS: BP 146/76
[2020-07-25] MEDS: HydrALAZINE 10mg Tab ORAL SCH ×4 (05:22→23:08)
[2020-07-25 08:00] VITALS: BP 155/71
[2020-07-25] MEDS: Heparin 5000 units/ml inj SUBQ SCH ×2 (08:02→21:14)
--- NOTE | 2020-07-25 09:47 | General Progress Note ---
Subjective ROS Limited/Unobtainable: No Allergies: Coded Allergies: No Known Allergies (Unverified , 02/05/19) Objective Last 24 Hour Vital Signs Date Time Temp Pulse Resp B/P (MAP) Pulse Ox O2 Delivery O2 Flow Rate FiO2 07/25/20 09:22 155/71 07/25/20 09:00 Room Air 07/25/20 08:00 98.3 98 18 155/71 (99) 94 07/25/20 08:00 90 07/25/20 05:22 149/88 07/25/20 04:00 76 07/25/20 04:00 98.3 92 20 146/76 (99) 94 07/25/20 00:00 98.0 92 20 149/68 (95) 94 07/25/20 00:00 94 07/24/20 23:23 157/94 07/24/20 21:00 Room Air 07/24/20 20:00 96 07/24/20 20:00 99.4 110 20 136/77 (96) 94 07/24/20 17:20 172/80 07/24/20 17:20 172/80 07/24/20 16:00 101 07/24/20 16:00 98.3 106 20 172/80 (110) 98 07/24/20 12:22 143/93 07/24/20 12:00 97.5 109 20 143/93 (110) 97 07/24/20 12:00 95 07/24/20 10:17 89 18 99 07/24/20 10:16 81 18 99 Intake and Output 07/24/20 07/25/20 19:00 07:00 Intake Total 425 ml 295 ml Output Total 0 ml Balance 425 ml 295 ml IV Total 425 ml Tube Feeding 295 ml Estimated Blood Loss 0 ml # Voids 1 18 Height (Feet): 5 Height (Inches): 3.00 Weight (Pounds): 1633 General Appearance: no apparent distress EENT: normal ENT inspection Neck: normal alignment Cardiovascular: normal rate Respiratory/Chest: decreased breath sounds Abdomen: normal bowel sounds, non tender, soft Extremities: non-tender Assessment/Plan Assessment/Plan: 1. Large neck mass, 2. Tracheal deviation. 3. Difficulty swallowing. - ST eval pending 4. Possible right upper lobe pneumonia. 5. Leukocytosis. 6. Failure to thrive. 7. Dysphagia. - ST eval pending 8. Dementia 9. Hypertension s/p PEG GTF HL iv monitor for residuals Andrea Kumar MD Jul 25, 2020 09:47
[2020-07-25 12:00] VITALS: BP 146/71
--- NOTE | 2020-07-25 14:57 | Pulmonology Progress Note ---
Subjective ROS Limited/Unobtainable: No Interval Events: None new Constitutional: Reports: no symptoms HEENT: Repors: no symptoms Respiratory: Reports: productive cough Cardiovascular: Reports: no symptoms Allergies: Coded Allergies: No Known Allergies (Unverified , 02/05/19) Objective Last 24 Hour Vital Signs Date Time Temp Pulse Resp B/P (MAP) Pulse Ox O2 Delivery O2 Flow Rate FiO2 07/25/20 13:02 146/71 07/25/20 12:00 96 07/25/20 12:00 99.6 101 18 146/71 (96) 94 07/25/20 09:22 155/71 07/25/20 09:00 Room Air 07/25/20 08:00 98.3 98 18 155/71 (99) 94 07/25/20 08:00 90 07/25/20 05:22 149/88 07/25/20 04:00 76 07/25/20 04:00 98.3 92 20 146/76 (99) 94 07/25/20 00:00 98.0 92 20 149/68 (95) 94 07/25/20 00:00 94 07/24/20 23:23 157/94 07/24/20 21:00 Room Air 07/24/20 20:00 96 07/24/20 20:00 99.4 110 20 136/77 (96) 94 07/24/20 17:20 172/80 07/24/20 17:20 172/80 07/24/20 16:00 101 07/24/20 16:00 98.3 106 20 172/80 (110) 98 Intake and Output 07/24/20 07/25/20 19:00 07:00 Intake Total 425 ml 295 ml Output Total 0 ml Balance 425 ml 295 ml IV Total 425 ml Tube Feeding 295 ml Estimated Blood Loss 0 ml # Voids 1 18 General Appearance: no acute distress HEENT: normocephalic, other - neck mass+, PEG Respiratory: chest wall non-tender, lungs clear Cardiovascular: normal peripheral pulses, normal rate Abdomen: normal bowel sounds, soft, non tender Extremities: no cyanosis Microbiology Date/Time Source Procedure Growth Status 07/23/20 11:30 Nasopharynx SARS-CoV-2 RdRp Gene Assay - Final Complete Current Medications Medications (Trade) Dose Ordered Sig/Alexei Route PRN Reason Start Time Stop Time Status Last Admin Dose Admin Ceftriaxone Sodium 1 gm/ Dextrose 55 ml @ 110 mls/hr Q24H IVPB 07/20/20 23:00 07/27/20 22:59 07/24/20 23:22 Haloperidol Lactate (Haldol) 2.5 mg Q12H PRN IM Agitation 07/20/20 14:00 09/03/20 13:59 07/22/20 15:19 Heparin Sodium (Porcine) (Heparin 5000 units/ml) 5,000 units EVERY 12 HOURS SUBQ 07/20/20 21:00 09/03/20 20:59 07/25/20 08:02 Hydralazine HCl (Apresoline) 5 mg Q6H PRN IV For High Blood Pressure 07/22/20 19:15 10/20/20 19:14 07/25/20 09:22 Hydralazine HCl (Apresoline) 10 mg Q6HR ORAL 07/20/20 12:00 10/18/20 11:59 07/25/20 13:02 Lorazepam (Ativan) 1 mg BEDTIME PRN ORAL Insomnia 07/20/20 03:15 07/27/20 03:14 07/20/20 23:05 Assessment/Plan Assessment/Plan IMPRESSION: 1. 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 3. Difficulty swallowing. 4. Possible right upper lobe pneumonia. 5. Leukocytosis. 6. Hypokalemia. 7. Failure to thrive. 8. Dysphagia. 9. Dementia DISCUSSION: 1. 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 - She will need to be transferred to contracted facility given lack of ENT at our facility. - She needs to have biopsy of this mass. 2. Tracheal deviation. 3. Dysphagia - Pt failed ST eval - s/p PEG - rapid COVID-19 test prior to EGD -negative 4. Possible right upper lobe pneumonia. - Continue broad-spectrum antibiotics. 5. Leukocytosis. 6. Hypokalemia. - K replaced; improving - on Dextrose with KCl 7. Failure to thrive. 8. Dementia - Haldol and Ativan for agitation; has underlying dementia 9. Hypertension - on IV hydralazine prn IV fluids given. Discussed with family. Will be d/w daughter, Tirso Claudio Melanie Hickman Omar Syed MD Jul 25, 2020 14:57
[2020-07-25] MEDS ORDERED: LEVOFLOXACIN250 MG ORAL (14:59)
[2020-07-25 16:00] VITALS: BP 152/79
[2020-07-25 20:00] VITALS: BP 144/67
[2020-07-25] MEDS: cefTRIAXone 1 GM in D5W 55 ML IVPB SCH (23:08)
[2020-07-26] VITALS (10 sets, daily range): BP systolic 123–159; BP diastolic 52–94
[2020-07-26] MEDS: HydrALAZINE 10mg Tab ORAL SCH ×3 (06:26→19:47)
[2020-07-26 07:10] LABS: BASOPHILS % (AUTO) 1.2 % (0.0-2.0); EOSINOPHILS % (AUTO) 4.9 % (0.0-3.0); HEMATOCRIT 41.8 % (37.0-47.0); LYMPHOCYTES % (AUTO) 15.4 % (20.0-45.0); MEAN CORPUSCULAR VOLUME 94 FL (80-99); NEUTROPHILS % (AUTO) 70.5 % (45.0-75.0); PLATELET COUNT 346 K/UL (150-450); RED BLOOD COUNT 4.46 M/UL (4.20-5.40); RED CELL DISTRIBUTION WIDTH 13.6 % (11.6-14.8)
[2020-07-26 07:53] LABS: ANION GAP 4 mmol/L (5-15); BLOOD UREA NITROGEN 22 mg/dL (7-18); CALCIUM 8.6 MG/DL (8.5-10.1); CARBON DIOXIDE 31 MMOL/L (21-32); CHLORIDE 102 MMOL/L (98-107); CREATININE 0.6 MG/DL (0.55-1.30); POTASSIUM 3.2 MMOL/L (3.5-5.1); SODIUM 137 MMOL/L (136-145)
[2020-07-26] MEDS: Heparin 5000 units/ml inj SUBQ SCH ×2 (08:31→20:13)
[2020-07-26] MEDS: Miralax 17gm pkt ORAL PRN (10:00)
--- NOTE | 2020-07-26 10:19 | Pulmonology Progress Note ---
Subjective ROS Limited/Unobtainable: No Interval Events: None new Constitutional: Reports: no symptoms HEENT: Repors: no symptoms Respiratory: Reports: productive cough Cardiovascular: Reports: no symptoms Allergies: Coded Allergies: No Known Allergies (Unverified , 02/05/19) Objective Last 24 Hour Vital Signs Date Time Temp Pulse Resp B/P (MAP) Pulse Ox O2 Delivery O2 Flow Rate FiO2 07/26/20 09:00 Room Air 07/26/20 08:00 99.3 97 18 141/86 (104) 96 07/26/20 08:00 105 07/26/20 08:00 99.3 97 18 141/86 (104) 96 07/26/20 06:26 144/62 07/26/20 04:00 97.5 61 16 144/62 (89) 92 07/26/20 04:00 102 07/26/20 00:00 97.8 90 16 152/65 (94) 94 07/26/20 00:00 100 07/25/20 23:08 140/78 07/25/20 21:00 Room Air 07/25/20 20:00 98.1 62 16 144/67 (92) 94 07/25/20 20:00 98 07/25/20 17:57 152/79 07/25/20 16:00 98.2 103 18 152/79 (103) 94 07/25/20 16:00 104 07/25/20 13:02 146/71 07/25/20 12:00 96 07/25/20 12:00 99.6 101 18 146/71 (96) 94 l Intake and Output 07/25/20 07/26/20 19:00 07:00 Intake Total 715 ml 60 ml Balance 715 ml 60 ml Free Water 100 ml Tube Feeding 615 ml 60 ml # Voids 1 Objective 07/24 room air; s/p PEG 07/23 remains on room air; failed ST eval 07/22 confused, on room air General Appearance: no acute distress HEENT: normocephalic, other - neck mass+, PEG Respiratory: chest wall non-tender, lungs clear Cardiovascular: normal peripheral pulses, normal rate Abdomen: normal bowel sounds, soft, non tender Extremities: no cyanosis Microbiology Date/Time Source Procedure Growth Status 07/23/20 11:30 Nasopharynx SARS-CoV-2 RdRp Gene Assay - Final Complete Laboratory Tests 07/26/20 06:14: White Blood Count 15.0H, Red Blood Count 4.46, Hemoglobin 13.0, Hematocrit 41.8, Mean Corpuscular Volume 94, Mean Corpuscular Hemoglobin 29.3, Mean Corpuscular Hemoglobin Concent 31.2L, Red Cell Distribution Width 13.6, Platelet Count 346, Mean Platelet Volume 7.2, Neutrophils (%) (Auto) 70.5, Lymphocytes (%) (Auto) 15.4L, Monocytes (%) (Auto) 8.0, Eosinophils (%) (Auto) 4.9H, Basophils (%) (Auto) 1.2, Sodium Level 137, Potassium Level 3.2L, Chloride Level 102, Carbon Dioxide Level 31, Anion Gap 4L, Blood Urea Nitrogen 22H, Creatinine 0.6, Estimat Glomerular Filtration Rate > 60, Glucose Level 135H, Calcium Level 8.6 Current Medications Medications (Trade) Dose Ordered Sig/Alexei Route PRN Reason Start Time Stop Time Status Last Admin Dose Admin Ceftriaxone Sodium 1 gm/ Dextrose 55 ml @ 110 mls/hr Q24H IVPB 07/20/20 23:00 07/27/20 22:59 07/25/20 23:08 Haloperidol Lactate (Haldol) 2.5 mg Q12H PRN IM Agitation 07/20/20 14:00 09/03/20 13:59 07/22/20 15:19 Heparin Sodium (Porcine) (Heparin 5000 units/ml) 5,000 units EVERY 12 HOURS SUBQ 07/20/20 21:00 09/03/20 20:59 07/26/20 08:31 Hydralazine HCl (Apresoline) 5 mg Q6H PRN IV For High Blood Pressure 07/22/20 19:15 10/20/20 19:14 07/25/20 09:22 Hydralazine HCl (Apresoline) 10 mg Q6HR ORAL 07/20/20 12:00 10/18/20 11:59 07/26/20 06:26 Lorazepam (Ativan) 1 mg BEDTIME PRN ORAL Insomnia 07/20/20 03:15 07/27/20 03:14 07/20/20 23:05 Polyethylene Glycol (Miralax) 17 gm DAILYPRN PRN ORAL Constipation 07/26/20 09:45 08/25/20 09:44 07/26/20 10:00 Assessment/Plan Assessment/Plan 1. 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 - She will need to be transferred to contracted facility given lack of ENT at our facility. - She needs to have biopsy of this mass. 2. Tracheal deviation. 3. Dysphagia - Pt failed ST eval - s/p PEG - rapid COVID-19 test prior to EGD -negative 4. Possible right upper lobe pneumonia. - Continue broad-spectrum antibiotics. - will be transitioned to PO levofloxacin for discharge 5. Leukocytosis. 6. Hypokalemia. - K replaced; improving - s/p Dextrose with KCl 7. Failure to thrive. 8. Dementia - Haldol and Ativan for agitation; has underlying dementia 9. Hypertension - on IV hydralazine prn 10. constipation - miralax Discussed with family. Will be d/w daughter, Tirso Claudio pt will be discharged home with home health; per CM, home health will start service on 07/29, thus family needs to be educated on feeding pt using PEG; flushing, monitoring residuals, etc We will follow carefully. The care for this patient was discussed with my supervising physician Time spent for this case was approximately 31 minutes Augustine Luque Jul 26, 2020 10:19 Santo Proctor MD Jul 26, 2020 15:04
--- NOTE | 2020-07-26 17:07 | Emergency Room Report ---
History of Present Illness General Chief Complaint: Choking Source: Family Member Present Illness Allergies: Coded Allergies: No Known Allergies (Unverified , 02/05/19) COVID-19 Screening Contact w/high risk pt: No Experienced COVID-19 symptoms?: No COVID-19 Testing performed METALLURGICAL SPECIALIST: No COVID-19 Screening: Negative COVID-19 Patient History Now: No Nursing Documentation-PM Past Medical History: No History, Except For Hx Cardiac Problems: Yes Hx Hypertension: Yes Hx Neurological Problems: Yes Hx Dementia: Yes Physical Exam Vital Signs Date Time Temp Pulse Resp B/P (MAP) Pulse Ox O2 Delivery O2 Flow Rate FiO2 07/22/20 08:00 99.8 105 18 104/74 (84) 96 07/22/20 09:00 Room Air 07/24/20 07:21 3 07/26/20 16:27 100 Procedures Intubation Intubation : Consent: Emergent Tube Size (cm): 7.0 Medications: Etomidate, Rocuronium Breath Sounds after Intubation: equal Intubation Complications: no complications Post Intubation Xray: Yes Attempts: One Patient Tolerated: Well Complications: None Medical Decision Making Diagnostic Impression: Primary Impression: Neck mass Additional Impressions: Hypertensive urgency Tumor, thyroid Dysphagia Qualified Codes: R13.10 - Dysphagia, unspecified Tachycardia Hypokalemia ER Course I was called to the patient's bedside for CODE BLUE. When I arrived the patient was apneic and had a pulse. She was on nonrebreather with normal oxygen saturation. She had a very low GCS and I was unable to arouse the patient. She was intubated for airway protection as described above. Intubation was successful with 1 attempt. Total critical care time: Approximately 30 minutes Due to a high probability of clinically significant, life threatening deterioration, the patient required the highest level of preparedness to intervene emergently and I personally spent this critical care time directly and personally managing the patient. This critical care time included obtaining a history, examining the patient, pulse oximetry, ordering and reviewing studies, ordering treatments, evaluating response to treatment and updating management plan as needed, frequent reassessment and discussion with other providers as well as arranging for ultimate disposition. This critical to care time was performed to assess and manage the high probability of life-threatening deterioration that could result in multiorgan failure. This critical care time is separate from the separately billable procedures and treating other patients. Last Vital Signs Date Time Temp Pulse Resp B/P (MAP) Pulse Ox O2 Delivery O2 Flow Rate FiO2 07/26/20 16:27 132 16 100 07/26/20 16:27 100 Mechanical Ventilator 07/26/20 12:19 158/74 07/26/20 12:00 97.5 07/24/20 07:21 3 Disposition: ADMITTED INPATIENT Condition: Serious Scripts Levofloxacin (LEVOFLOXACIN*) 250 Mg Tablet 250 MG ORAL DAILY for 7 Days, TAB Prov: Santo Proctor MD 07/25/20 Referrals: NON PHYSICIAN (PCP) Patient Instructions: Dysphagia, PEG Tube Home Guide Ramon Hampton M.D. Jul 26, 2020 17:07
--- NOTE | 2020-07-26 17:51 | Diagnostic Imaging Report ---
EXAM: XR Chest, 1 View CLINICAL HISTORY: SOB TECHNIQUE: Frontal view of the chest. COMPARISON: Chest x-ray dated 07/19/2020 FINDINGS: Lungs: Unremarkable. Pleural space: Unremarkable. Heart: Unremarkable. Mediastinum: Unremarkable. Bones/joints: Unremarkable. Tubes, lines and devices: Endotracheal tube with tip at the clavicular heads. IMPRESSION: No acute findings in the chest.
--- NOTE | 2020-07-26 18:06 | Diagnostic Imaging Report ---
EXAM: US Duplex Bilateral Lower Extremities Veins CLINICAL HISTORY: DVT TECHNIQUE: Real-time duplex ultrasound scan of the bilateral lower extremity veins integrating B-mode two-dimensional vascular structure, Doppler spectral analysis, color flow Doppler imaging and compression. COMPARISON: No relevant prior studies available. FINDINGS: Right deep veins: Unremarkable. No DVT in the right common femoral, femoral, proximal deep femoral or popliteal veins. The veins demonstrate normal color flow, are normally compressible, with normal phasic flow and/or augmentation response. Right superficial veins: Unremarkable. No thrombus in the visualized right great saphenous vein. Left deep veins: Unremarkable. No DVT in the left common femoral, femoral, proximal deep femoral or popliteal veins. The veins demonstrate normal color flow, are normally compressible, with normal phasic flow and/or augmentation response. Left superficial veins: Unremarkable. No thrombus in the visualized left great saphenous vein. Soft tissues: No acute findings. No popliteal cyst. IMPRESSION: Normal bilateral lower extremity duplex venous ultrasound.
[2020-07-26] MEDS: cefTRIAXone 1 GM in D5W 55 ML IVPB SCH (23:10)
[2020-07-27] VITALS (20 sets, daily range): BP systolic 101–196; BP diastolic 50–109
[2020-07-27] MEDS: HydrALAZINE 10mg Tab ORAL SCH ×5 (00:24→23:22)
[2020-07-27 05:11] LABS: ALANINE AMINOTRANSFERASE 19 U/L (12-78); ALBUMIN 2.3 G/DL (3.4-5.0); ALBUMIN/GLOBULIN RATIO 0.5 (1.0-2.7); ALKALINE PHOSPHATASE 75 U/L (46-116); ANION GAP 4 mmol/L (5-15); ASPARTATE AMINO TRANSFERASE 33 U/L (15-37); BILIRUBIN,TOTAL 0.7 MG/DL (0.2-1.0); BLOOD UREA NITROGEN 22 mg/dL (7-18); CALCIUM 9.1 MG/DL (8.5-10.1); CARBON DIOXIDE 30 MMOL/L (21-32); CHLORIDE 102 MMOL/L (98-107); CREATININE 0.7 MG/DL (0.55-1.30); POTASSIUM 4.1 MMOL/L (3.5-5.1); SODIUM 136 MMOL/L (136-145)
[2020-07-27 05:17] LABS: HEMATOCRIT 39.6 % (37.0-47.0); HEMOGLOBIN 12.7 G/DL (12.0-16.0); MEAN CORPUSCULAR VOLUME 93 FL (80-99); PLATELET COUNT 318 K/UL (150-450); RED BLOOD COUNT 4.27 M/UL (4.20-5.40); WHITE BLOOD COUNT 18.7 K/UL (4.8-10.8)
--- NOTE | 2020-07-27 09:41 | Pulmonology Progress Note ---
Subjective ROS Limited/Unobtainable: No Interval Events: Intubated overnight; had sudden syncope prior to dc home yesterday Constitutional: Reports: no symptoms HEENT: Repors: no symptoms Respiratory: Reports: productive cough Cardiovascular: Reports: no symptoms Allergies: Coded Allergies: No Known Allergies (Unverified , 02/05/19) Objective Last 24 Hour Vital Signs Date Time Temp Pulse Resp B/P (MAP) Pulse Ox O2 Delivery O2 Flow Rate FiO2 07/27/20 09:00 Room Air 07/27/20 08:00 89 17 142/61 (88) 100 07/27/20 08:00 91 07/27/20 07:00 92 17 147/59 (88) 100 07/27/20 05:52 144/109 07/27/20 05:00 83 17 144/109 (121) 100 07/27/20 04:00 99.1 87 18 143/66 (91) 100 07/27/20 03:32 100 07/27/20 03:00 81 18 147/62 (90) 100 07/27/20 02:00 79 18 141/59 (86) 100 07/27/20 01:10 102 19 100 07/27/20 01:00 88 17 136/58 (84) 100 07/27/20 00:24 141/54 07/27/20 00:04 98 07/27/20 00:00 98.7 82 23 141/54 (83) 100 07/26/20 23:00 88 19 143/61 (88) 100 07/26/20 22:00 99.0 89 21 134/56 (82) 100 07/26/20 21:00 93 22 144/52 (82) 98 07/26/20 21:00 Room Air 07/26/20 20:00 98.3 98 19 132/56 (81) 99 07/26/20 20:00 Endotracheal Tube 07/26/20 19:49 108 17 100 07/26/20 19:47 123/71 07/26/20 19:45 97 07/26/20 18:00 120 21 123/71 (88) 97 07/26/20 17:32 40 07/26/20 17:30 Endotracheal Tube 07/26/20 17:00 98.7 138 20 159/89 (112) 100 138 07/26/20 16:30 138 07/26/20 16:27 132 16 100 07/26/20 16:27 132 16 100 Mechanical Ventilator 100 07/26/20 12:19 158/74 07/26/20 12:00 97.5 105 20 158/94 (115) 96 07/26/20 12:00 102 Intake and Output 07/26/20 07/27/20 19:00 07:00 Intake Total 0 ml 155 ml Output Total 100 ml 300 ml Balance -100 ml -145 ml Free Water 40 ml IV Total 55 ml Tube Feeding 0 ml 60 ml Output Urine Total 100 ml 300 ml # Voids 1 General Appearance: no acute distress HEENT: normocephalic, other - neck mass+, PEG Respiratory: chest wall non-tender, lungs clear Cardiovascular: normal peripheral pulses, normal rate Abdomen: normal bowel sounds, soft, non tender Extremities: no cyanosis Laboratory Tests 07/26/20 17:20: Arterial Blood pH 7.571*H, Arterial Blood Partial Pressure CO2 28.5L, Arterial Blood Partial Pressure O2 237.7H, Arterial Blood HCO3 25.6, Arterial Blood Oxygen Saturation 99.5, Arterial Blood Base Excess 4.5H, Philip Test Positive 07/27/20 03:05: White Blood Count 18.7H, Red Blood Count 4.27, Hemoglobin 12.7, Hematocrit 39.6, Mean Corpuscular Volume 93, Mean Corpuscular Hemoglobin 29.8, Mean Corpuscular Hemoglobin Concent 32.1, Red Cell Distribution Width 13.0, Platelet Count 318, Mean Platelet Volume 7.3, Neutrophils (%) (Auto) , Lymphocytes (%) (Auto) , Monocytes (%) (Auto) , Eosinophils (%) (Auto) , Basophils (%) (Auto) , Differential Total Cells Counted 100, Neutrophils % (Manual) 81H, Lymphocytes % (Manual) 13L, Monocytes % (Manual) 5, Eosinophils % (Manual) 1, Basophils % (Manual) 0, Band Neutrophils 0, Platelet Estimate Adequate, Platelet Morphology Normal, Red Blood Cell Morphology Normal, D-Dimer 1.91H, Sodium Level 136, Potassium Level 4.1, Chloride Level 102, Carbon Dioxide Level 30, Anion Gap 4L, Blood Urea Nitrogen 22H, Creatinine 0.7, Estimat Glomerular Filtration Rate > 60, Glucose Level 129H, Calcium Level 9.1, Total Bilirubin 0.7, Aspartate Amino Transf (AST/SGOT) 33, Alanine Aminotransferase (ALT/SGPT) 19, Alkaline Phosphatase 75, Total Protein 6.9, Albumin 2.3L, Globulin 4.6, Albumin/Globulin Ratio 0.5L Current Medications Medications (Trade) Dose Ordered Sig/Alexei Route PRN Reason Start Time Stop Time Status Last Admin Dose Admin Ceftriaxone Sodium 1 gm/ Dextrose 55 ml @ 110 mls/hr Q24H IVPB 07/20/20 23:00 07/27/20 22:59 07/26/20 23:10 Haloperidol Lactate (Haldol) 2.5 mg Q12H PRN IM Agitation 07/20/20 14:00 09/03/20 13:59 07/22/20 15:19 Heparin Sodium (Porcine) (Heparin 5000 units/ml) 5,000 units EVERY 12 HOURS SUBQ 07/20/20 21:00 09/03/20 20:59 07/26/20 08:31 Hydralazine HCl (Apresoline) 5 mg Q6H PRN IV For High Blood Pressure 07/22/20 19:15 10/20/20 19:14 07/25/20 09:22 Hydralazine HCl (Apresoline) 10 mg Q6HR ORAL 07/20/20 12:00 10/18/20 11:59 07/27/20 05:52 Polyethylene Glycol (Miralax) 17 gm DAILYPRN PRN ORAL Constipation 07/26/20 09:45 08/25/20 09:44 07/26/20 10:00 Assessment/Plan Assessment/Plan IMPRESSION: Assessment/Plan 1. 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 - She will need to be transferred to contracted facility given lack of ENT at our facility. - She needs to have biopsy of this mass. - Discussed with family; will dc home when stable and see ENT as outpt 2. Tracheal deviation. 3. Dysphagia - Pt failed ST eval - s/p PEG - rapid COVID-19 test prior to EGD -negative 4. Possible right upper lobe pneumonia. - Continue broad-spectrum antibiotics. - will be transitioned to PO levofloxacin for discharge 5. Leukocytosis. 6. Hypokalemia. - K replaced; improving - s/p Dextrose with KCl 7. Failure to thrive. 8. Dementia - Haldol and Ativan for agitation; has underlying dementia 9. Hypertension - on IV hydralazine prn 10. constipation - miralax 11. Respiratory failure - intubated yesterday - had sudden AMS and syncope as she was being discharged - awake and respomsive - weaning well thisd Am - will check ABG; hope to extubate - discussed with daughter - d dimer high; however negative venous duplex for DVT - check tropinin and EKG Melanie Hickman Omar Syed MD Jul 27, 2020 09:41
[2020-07-27] MEDS: Heparin 5000 units/ml inj SUBQ SCH ×2 (10:51→21:10)
--- NOTE | 2020-07-27 11:47 | Diagnostic Imaging Report ---
EXAM: XR Chest, 1 View CLINICAL HISTORY: S/P INTUB TECHNIQUE: Frontal view of the chest. COMPARISON: Chest radiograph on 07/26/2020 FINDINGS: Hardware: Endotracheal tube terminates in the region of the mid thoracic trachea, approximately 3.5 cm above the cami. Pacer pads projected over the mediastinum and left chest. Lungs/pleura: Normal. No focal consolidation. No pleural effusion or pneumothorax. Heart/mediastinum: Atherosclerotic calcifications in the aorta. No cardiomegaly. Soft tissues: Unremarkable. Bones: No acute fracture. Degenerative changes of the visualized right shoulder. Upper abdomen: Normal. IMPRESSION: 1. Endotracheal tube terminates in the region of the mid thoracic trachea, approximately 3.5 cm above the cami. 2. No focal consolidation identified.
--- NOTE | 2020-07-27 12:02 | Emergency Room Report ---
History of Present Illness General Chief Complaint: Choking Source: Family Member Present Illness Allergies: Coded Allergies: No Known Allergies (Unverified , 02/05/19) COVID-19 Screening Contact w/high risk pt: No Experienced COVID-19 symptoms?: No COVID-19 Testing performed HEALTH CLAIMS EXAMINER: No COVID-19 Screening: Negative COVID-19 Patient History Now: No Nursing Documentation-PMH Past Medical History: No History, Except For Hx Cardiac Problems: Yes Hx Hypertension: Yes Hx Neurological Problems: Yes Hx Dementia: Yes Physical Exam Vital Signs Date Time Temp Pulse Resp B/P (MAP) Pulse Ox O2 Delivery O2 Flow Rate FiO2 07/23/20 08:00 97.5 124 20 146/72 (96) 98 07/23/20 09:00 Room Air 07/24/20 07:21 3 07/26/20 16:27 100 Procedures Intubation Intubation : Consent: Verbal Intubation Method: orotracheal Tube Size (cm): 7.5 Medications: Succinylcholine Breath Sounds after Intubation: equal Intubation Complications: no complications Post Intubation Xray: Yes Attempts: Other - 2 Patient Tolerated: Well Complications: None Medical Decision Making Diagnostic Impression: Primary Impression: Neck mass Additional Impressions: Hypertensive urgency Tumor, thyroid Dysphagia Qualified Codes: R13.10 - Dysphagia, unspecified Tachycardia Hypokalemia ER Course I was called to the ICU for CODE BLUE. Patient had recently been extubated by the primary physician. Apparently patient had become bradycardic and had a cardiac arrest. 1 mg of epinephrine was given. On my arrival patient already had return of spontaneous circulation. Patient was being bagged and we prepared to intubate. Patient was intubated by me. This was a difficult intubation, as patient has a neck mass and airway is deviated to the right. ICU care cont inued. Last Vital Signs Date Time Temp Pulse Resp B/P (MAP) Pulse Ox O2 Delivery O2 Flow Rate FiO2 07/27/20 11:21 100 07/27/20 09:00 Room Air 07/27/20 08:00 89 17 142/61 (88) 07/27/20 07:17 40 07/27/20 04:00 99.1 07/24/20 07:21 3 Disposition: ADMITTED INPATIENT Condition: Serious Scripts Levofloxacin (LEVOFLOXACIN*) 250 Mg Tablet 250 MG ORAL DAILY for 7 Days, TAB Prov: Santo Proctor MD 07/25/20 Referrals: NON PHYSICIAN (PCP) Patient Instructions: Dysphagia, PEG Tube Home Guide Marcelino Sierra M.D. Jul 27, 2020 12:02
--- NOTE | 2020-07-27 19:55 | Cardiac Electrophysiology PN ---
Subjective Subjective [id number] Objective Last 24 Hour Vital Signs Date Time Temp Pulse Resp B/P (MAP) Pulse Ox O2 Delivery O2 Flow Rate FiO2 07/27/20 18:00 106/51 07/27/20 18:00 97 16 105/51 (69) 100 07/27/20 17:00 99.0 102 17 123/54 (77) 100 07/27/20 16:00 99 07/27/20 16:00 100 17 127/65 (85) 100 07/27/20 15:00 99 17 117/64 (81) 100 07/27/20 14:00 109 17 132/67 (88) 100 07/27/20 13:09 108 16 100 07/27/20 13:00 98.3 107 16 134/69 (90) 100 07/27/20 12:00 111 07/27/20 12:00 100/50 07/27/20 12:00 118 20 101/51 (68) 100 07/27/20 11:21 100 07/27/20 11:00 111 20 101/50 (67) 100 07/27/20 10:00 119 21 190/91 (124) 100 07/27/20 09:00 Room Air 07/27/20 09:00 114 20 196/77 (116) 100 07/27/20 08:00 89 17 142/61 (88) 100 07/27/20 08:00 91 07/27/20 07:17 88 15 40 07/27/20 07:00 92 17 147/59 (88) 100 07/27/20 05:52 144/109 07/27/20 05:00 83 17 144/109 (121) 100 07/27/20 04:00 99.1 87 18 143/66 (91) 100 07/27/20 03:32 100 07/27/20 03:00 81 18 147/62 (90) 100 07/27/20 02:00 79 18 141/59 (86) 100 07/27/20 01:10 102 19 100 07/27/20 01:00 88 17 136/58 (84) 100 07/27/20 00:24 141/54 07/27/20 00:04 98 07/27/20 00:00 98.7 82 23 141/54 (83) 100 07/26/20 23:00 88 19 143/61 (88) 100 07/26/20 22:00 99.0 89 21 134/56 (82) 100 07/26/20 21:00 93 22 144/52 (82) 98 07/26/20 21:00 Room Air 07/26/20 20:00 98.3 98 19 132/56 (81) 99 07/26/20 20:00 Endotracheal Tube Intake and Output 07/26/20 07/27/20 19:00 07:00 Intake Total 0 ml 155 ml Output Total 100 ml 300 ml Balance -100 ml -145 ml Free Water 40 ml IV Total 55 ml Tube Feeding 0 ml 60 ml Output Urine Total 100 ml 300 ml # Voids 1 Laboratory Tests Test 07/27/20 03:05 07/27/20 09:47 07/27/20 13:54 White Blood Count 18.7 K/UL (4.8-10.8) H Red Blood Count 4.27 M/UL (4.20-5.40) Hemoglobin 12.7 G/DL (12.0-16.0) Hematocrit 39.6 % (37.0-47.0) Mean Corpuscular Volume 93 FL (80-99) Mean Corpuscular Hemoglobin 29.8 PG (27.0-31.0) Mean Corpuscular Hemoglobin Concent 32.1 G/DL (32.0-36.0) Red Cell Distribution Width 13.0 % (11.6-14.8) Platelet Count 318 K/UL (150-450) Mean Platelet Volume 7.3 FL (6.5-10.1) Neutrophils (%) (Auto) % (45.0-75.0) Lymphocytes (%) (Auto) % (20.0-45.0) Monocytes (%) (Auto) % (1.0-10.0) Eosinophils (%) (Auto) % (0.0-3.0) Basophils (%) (Auto) % (0.0-2.0) Differential Total Cells Counted 100 Neutrophils % (Manual) 81 % (45-75) H Lymphocytes % (Manual) 13 % (20-45) L Monocytes % (Manual) 5 % (1-10) Eosinophils % (Manual) 1 % (0-3) Basophils % (Manual) 0 % (0-2) Band Neutrophils 0 % (0-8) Platelet Estimate Adequate Platelet Morphology Normal Red Blood Cell Morphology Normal D-Dimer 1.91 mg/L FEU (0.00-0.49) H Sodium Level 136 MMOL/L (136-145) Potassium Level 4.1 MMOL/L (3.5-5.1) Chloride Level 102 MMOL/L (98-107) Carbon Dioxide Level 30 MMOL/L (21-32) Anion Gap 4 mmol/L (5-15) L Blood Urea Nitrogen 22 mg/dL (7-18) H Creatinine 0.7 MG/DL (0.55-1.30) Estimat Glomerular Filtration Rate > 60 mL/min (>60) Glucose Level 129 MG/DL (74-106) H Calcium Level 9.1 MG/DL (8.5-10.1) Total Bilirubin 0.7 MG/DL (0.2-1.0) Aspartate Amino Transf (AST/SGOT) 33 U/L (15-37) Alanine Aminotransferase (ALT/SGPT) 19 U/L (12-78) Alkaline Phosphatase 75 U/L (46-116) Troponin I 0.042 ng/mL (0.000-0.056) Total Protein 6.9 G/DL (6.4-8.2) Albumin 2.3 G/DL (3.4-5.0) L Globulin 4.6 g/dL Albumin/Globulin Ratio 0.5 (1.0-2.7) L Arterial Blood pH 7.462 (7.350-7.450) 7.484 (7.350-7.450) Arterial Blood Partial Pressure CO2 40.6 mmHg (35.0-45.0) 38.1 mmHg (35.0-45.0) Arterial Blood Partial Pressure O2 82.8 mmHg (75.0-100.0) 394.2 mmHg (75.0-100.0) H Arterial Blood HCO3 28.4 mmol/L (22.0-26.0) H 28.0 mmol/L (22.0-26.0) H Arterial Blood Oxygen Saturation 96.4 % (95-100) 99.6 % (95-100) Arterial Blood Base Excess 4.2 (-2-2) H 4.4 (-2-2) H Philip Test Positive Positive Philip Whalen MD Jul 27, 2020 19:55
[2020-07-28] VITALS (19 sets, daily range): BP systolic 121–190; BP diastolic 47–74
--- NOTE | 2020-07-28 02:00 | Consultation ---
DATE OF CONSULTATION: 07/27/2020 CARDIOLOGY CONSULTATION CONSULTING PHYSICIAN: Philip Whalen MD REFERRING PHYSICIAN: Santo Proctor MD HISTORY OF PRESENT ILLNESS: The patient is an 89-year-old lady with a history of cognitive impairment, was having a swallowing difficulty for several days prior to the admission. The patient was noted to have a large neck mass, possibly thyroid origin with tracheal deviation and difficulty swallowing. The patient was admitted for possible right upper lobe pneumonia. Subsequently, the patient was evaluated by Dr. Kumar and underwent a G-tube placement on July 24, 2020 for dysphagia. The patient was supposed to be discharged, however, developed respiratory failure and was intubated. The patient was extubated yesterday at 10 o'clock in the morning, however at around 10:40, she coded again with junctional rhythm with the heart rate down to 30. Per discussion with Dr. Proctor and staff, the patient was saturating well at that time and this was not the primary respiratory issue. At the time of my evaluation, the patient is intubated in intensive care unit and is unable to provide any information. REVIEW OF SYSTEMS: Cannot be obtained. PAST MEDICAL HISTORY: As mentioned above. FAMILY HISTORY: Noncontributory. SOCIAL HISTORY: No history of smoke or drinking alcohol. PHYSICAL EXAMINATION: VITAL SIGNS: Show blood pressure of 105/51, pulse is 97, respirations 18, and temperature 99. HEAD AND NECK: She is orally intubated with a large neck mass. LUNGS: Coarse rhonchi. CARDIOVASCULAR: Shows regular S1 and S2 with no gallop. ABDOMEN: Soft. EXTREMITIES: No pitting edema. LABORATORY AND DIAGNOSTIC DATA: Labs show white count of 18.2, hemoglobin 12.7, hematocrit 39.6, and platelet count is 318. Sodium 136, potassium 4.1, BUN of 22, and creatinine 0.7. Troponin 0.042. ASSESSMENT AND PLAN: 1. Status post bradycardic arrest, likely due to sick sinus syndrome in this 89-year-old lady. The patient did not have any respiratory issue at that time and was extubated earlier per staff. We will watch the patient on telemetry while she is intubated and monitor her heart rate. Obviously, she would be off of any sinus node or AV fabiola affecting agent. Thyroid function tests would be reassessed as well as we will get an echocardiogram for further evaluation and management to completely rule out IN protocol. 2. Hypertension, on hydralazine 10 mg every 6 hours and p.r.n. IV hydralazine. 3. Respiratory failure, intubated again. 4. 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 The patient will be transferred to facility and biopsy. 5. Dysphagia, status post PEG placement with negative rapid COVID test prior to EGD. 6. Right upper lobe pneumonia, on IV antibiotic. 7. Dementia. On Ativan for agitation. Thank you very much, Dr. Proctor, for allowing me to participate in the care of this patient. Please do not hesitate to contact me for any questions regarding my evaluation. The case was discussed with Dr. Proctor and the ICU staff. Time spent is 45 minutes. Philip Whalen M.D. DR: LUCIANO JOB#: [id number] CC:
[2020-07-28] MEDS: HydrALAZINE 10mg Tab ORAL SCH ×4 (05:13→23:50)
[2020-07-28 09:04] LABS: HEMATOCRIT 37.9 % (37.0-47.0); HEMOGLOBIN 11.9 G/DL (12.0-16.0); MEAN CORPUSCULAR VOLUME 91 FL (80-99); PLATELET COUNT 297 K/UL (150-450); RED BLOOD COUNT 4.15 M/UL (4.20-5.40); RED CELL DISTRIBUTION WIDTH 13.6 % (11.6-14.8); WHITE BLOOD COUNT 20.3 K/UL (4.8-10.8)
[2020-07-28 09:10] LABS: ANION GAP 4 mmol/L (5-15); BLOOD UREA NITROGEN 28 mg/dL (7-18); CALCIUM 8.9 MG/DL (8.5-10.1); CARBON DIOXIDE 30 MMOL/L (21-32); CHLORIDE 100 MMOL/L (98-107); CREATININE 0.6 MG/DL (0.55-1.30); POTASSIUM 3.8 MMOL/L (3.5-5.1); SODIUM 134 MMOL/L (136-145)
[2020-07-28 09:14] LABS: ALANINE AMINOTRANSFERASE 22 U/L (12-78); ALBUMIN 2.1 G/DL (3.4-5.0); ALBUMIN/GLOBULIN RATIO 0.4 (1.0-2.7); ALKALINE PHOSPHATASE 80 U/L (46-116); ASPARTATE AMINO TRANSFERASE 38 U/L (15-37); BILIRUBIN,TOTAL 0.8 MG/DL (0.2-1.0)
[2020-07-28] MEDS: Heparin 5000 units/ml inj SUBQ SCH ×2 (09:21→20:32)
--- NOTE | 2020-07-28 13:30 | Consultation ---
DATE OF CONSULTATION: 07/28/2020 ENDOCRINOLOGY CONSULTATION CONSULTING PHYSICIAN: Ramy Ledbetter MD. REFERRING PHYSICIAN: Santo Proctor MD. REASON FOR CONSULTATION: Thyroid mass. HISTORY OF PRESENT ILLNESS: It is important to note that history is obtained from review of the chart and medical records as the patient is intubated in the ICU. The patient is an 89-year-old female with past medical history of cognitive impairment, dementia, and swallowing difficulty for few days prior to the admission, admitted to the hospital on , noted to have large neck mass from thyroid origin. CT of neck revealed a 7 cm left thyroid lobe mass, calcified which is deviating the trachea to the right side with mild canal stenosis. The patient underwent G-tube placement on 07/24/[address] Kumar for dysphagia, supposed to be discharged, however, developed respiratory failure and was intubated. PAST MEDICAL HISTORY: 1. Neck mass. 2. Hypertension. PAST SURGICAL HISTORY: None listed. MEDICATIONS: Reviewed and reconciled. REVIEW OF SYSTEMS: Unobtainable since the patient is intubated. SOCIAL HISTORY: No smoking, alcohol, or drug use. PHYSICAL EXAMINATION: GENERAL: The patient is intubated. VITAL SIGNS: Pulse is 89, respiratory rate is 23, blood pressure 136/57. HEENT: Orally intubated. NECK: Visible and palpable left neck mass. HEART: Regular. LUNGS: Decreased breath sounds. ABDOMEN: Positive bowel sounds. G-tube noted. EXTREMITIES: Trace edema. LABORATORY AND DIAGNOSTIC DATA: Sodium 136, potassium 4.1, chloride 102, bicarb 30, BUN 22, creatinine 0.7, glucose 129. TSH was 0.4, free T4 of 1.39. CT neck revealed a large partially calcified low density heterogeneous mass measuring about 7.8 cm which is arising from the left thyroid gland with mass effect on the trachea deviating to the right side with mild narrowing of the canal. DIAGNOSES: 1. Respiratory failure. 2. Dysphagia. 3. Thyroid mass. DISCUSSION: The patient has indication for ultrasound as well as FNA of the left thyroid mass under the guidance. Currently she is intubated in the ICU and once she is more stabilized, we will proceed with the procedure hopefully during this hospitalization. Her thyroid function is normal; therefore, there is no indication for thyroid medication. Again, the next step would be FNA of the left thyroid mass. I will follow the patient during hospital stay and will order the test once clinically stable. Thank you, Dr. Proctor, for the courtesy of this consultation. Ramy Ledbetter M.D. DR: Tone JOB#: [id number] CC: BRYAN
--- NOTE | 2020-07-28 15:01 | Pulmonology Progress Note ---
Subjective ROS Limited/Unobtainable: Yes Interval Events: s/p intubation Constitutional: Reports: no symptoms HEENT: Repors: no symptoms Respiratory: Reports: productive cough Cardiovascular: Reports: no symptoms Allergies: Coded Allergies: No Known Allergies (Unverified , 02/05/19) Objective Last 24 Hour Vital Signs Date Time Temp Pulse Resp B/P (MAP) Pulse Ox O2 Delivery O2 Flow Rate FiO2 07/28/20 14:00 92 17 142/52 (82) 100 07/28/20 13:00 110 21 162/61 (94) 100 07/28/20 12:00 98.7 94 18 148/58 (88) 100 07/28/20 12:00 Endotracheal Tube 07/28/20 11:56 139/52 07/28/20 11:21 91 07/28/20 11:00 115 25 139/52 (81) 100 07/28/20 10:00 95 20 138/53 (81) 100 07/28/20 09:12 40 07/28/20 09:00 89 23 136/57 (83) 100 07/28/20 08:00 50 07/28/20 08:00 Endotracheal Tube 07/28/20 08:00 102 20 146/54 (84) 100 07/28/20 07:59 90 17 50 07/28/20 07:47 103 07/28/20 05:13 132/63 07/28/20 04:30 93 07/28/20 04:00 50 07/28/20 04:00 Mechanical Ventilator 50.0 07/28/20 04:00 99.0 89 17 132/63 (86) 100 07/28/20 01:14 98 16 50 07/28/20 01:00 101 17 149/56 (87) 100 07/28/20 00:00 99.5 90 16 121/52 (75) 100 07/28/20 00:00 Mechanical Ventilator 50.0 07/28/20 00:00 50 07/27/20 23:37 100 07/27/20 23:22 129/60 07/27/20 21:00 Mechanical Ventilator 50.0 07/27/20 20:00 98.8 109 18 129/60 (83) 100 07/27/20 19:26 99 07/27/20 19:10 108 16 50 07/27/20 19:00 109 19 125/57 (79) 100 07/27/20 19:00 50 07/27/20 18:00 106/51 07/27/20 18:00 97 16 105/51 (69) 100 07/27/20 17:00 99.0 102 17 123/54 (77) 100 07/27/20 16:00 99 07/27/20 16:00 100 17 127/65 (85) 100 07/27/20 15:00 99 17 117/64 (81) 100 Intake and Output 07/27/20 07/28/20 19:00 07:00 Intake Total 230 ml 370 ml Output Total 400 ml 200 ml Balance -170 ml 170 ml Free Water 90 ml 40 ml Tube Feeding 140 ml 330 ml Output Urine Total 400 ml 200 ml # Voids 3 Objective 07/28 remains intubated, FiO2 50% -> 40% this AM 07/24 room air; s/p PEG 07/23 remains on room air; failed ST eval 07/22 confused, on room air General Appearance: no acute distress HEENT: normocephalic, other - neck mass+, PEG Respiratory: chest wall non-tender, lungs clear Cardiovascular: normal peripheral pulses, normal rate Abdomen: normal bowel sounds, soft, non tender Extremities: no cyanosis Laboratory Tests 07/28/20 05:35: White Blood Count 20.3H, Red Blood Count 4.15L, Hemoglobin 11.9L, Hematocrit 37.9, Mean Corpuscular Volume 91, Mean Corpuscular Hemoglobin 28.7, Mean Corpuscular Hemoglobin Concent 31.4L, Red Cell Distribution Width 13.6, Platelet Count 297, Mean Platelet Volume 7.2, Neutrophils (%) (Auto) , Lymphocytes (%) (Auto) , Monocytes (%) (Auto) , Eosinophils (%) (Auto) , Basophils (%) (Auto) , Differential Total Cells Counted 100, Neutrophils % (Manual) 85H, Lymphocytes % (Manual) 5L, Monocytes % (Manual) 10, Eosinophils % (Manual) 0, Basophils % (Manual) 0, Band Neutrophils 0, Platelet Estimate Adequate, Platelet Morphology Normal, Hypochromasia 1+, Sodium Level 134L, Potassium Level 3.8, Chloride Level 100, Carbon Dioxide Level 30, Anion Gap 4L, Blood Urea Nitrogen 28H, Creatinine 0.6, Estimat Glomerular Filtration Rate > 60, Glucose Level 151H, Calcium Level 8.9, Total Bilirubin 0.8, Aspartate Amino Transf (AST/SGOT) 38H, Alanine Aminotransferase (ALT/SGPT) 22, Alkaline Phosphatase 80, Troponin I 0.047, Total Protein 6.9, Albumin 2.1L, Globulin 4.8, Albumin/Globulin Ratio 0.4L, Thyroid Stimulating Hormone (TSH) 0.492, Free Thyroxine 1.29 Current Medications Medications (Trade) Dose Ordered Sig/Alexei Route PRN Reason Start Time Stop Time Status Last Admin Dose Admin Haloperidol Lactate (Haldol) 2.5 mg Q12H PRN IM Agitation 07/20/20 14:00 09/03/20 13:59 07/22/20 15:19 Heparin Sodium (Porcine) (Heparin 5000 units/ml) 5,000 units EVERY 12 HOURS SUBQ 07/20/20 21:00 09/03/20 20:59 07/28/20 09:21 Hydralazine HCl (Apresoline) 5 mg Q6H PRN IV For High Blood Pressure 07/22/20 19:15 10/20/20 19:14 07/25/20 09:22 Hydralazine HCl (Apresoline) 10 mg Q6HR ORAL 07/20/20 12:00 10/18/20 11:59 07/28/20 11:56 Polyethylene Glycol (Miralax) 17 gm DAILYPRN PRN ORAL Constipation 07/26/20 09:45 08/25/20 09:44 07/26/20 10:00 Assessment/Plan Assessment/Plan 1. 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 - She will need to be transferred to contracted facility given lack of ENT at our facility. - She needs to have biopsy of this mass. - Discussed with family; will dc home when stable and see ENT as outpt - [facility] following 2. Tracheal deviation. 3. Dysphagia - Pt failed ST eval - s/p PEG - rapid COVID-19 test prior to EGD -negative 4. Possible right upper lobe pneumonia. - s/p broad-spectrum antibiotics. 5. Leukocytosis. 6. Hypokalemia. - K replaced; improving - s/p Dextrose with KCl 7. Failure to thrive. 8. Dementia - Haldol and Ativan for agitation; has underlying dementia 9. Hypertension - on IV hydralazine prn 10. constipation - miralax 11. Respiratory failure - s/p intubated - had sudden AMS and syncope as she was being discharged - awake and responsive - weaning well this Am - will check ABG; hope to extubate - discussed with daughter - d dimer high; however negative venous duplex for DVT - check troponin and EKG The care for this patient was discussed with my supervising physician Time spent for this case was approximately 31 minutes Augustine Luque Jul 28, 2020 15:01
[2020-07-28] MEDS: cefTRIAXone 1 GM in D5W 55 ML IVPB SCH (17:17)
[2020-07-28] MEDS: Miralax 17gm pkt ORAL PRN (17:43)
--- NOTE | 2020-07-28 18:05 | Cardiac Electrophysiology PN ---
Assessment/Plan Assessment/Plan 1. Status post bradycardic arrest, likely due to sick sinus syndrome in this 89-year-old lady. The patient did not have any respiratory issue at that time and was extubated earlier per staff. We will watch the patient on telemetry while she is intubated and monitor her heart rate. Obviously, she would be off of any sinus node or AV fabiola affecting agent. EF 60% and ruled out for IN. May also be due to Right neck mass pressure on the carotid artery( Like [facility]) 2. Hypertension, on hydralazine 10 mg every 6 hours and p.r.n. IV hydralazine. 3. Respiratory failure, intubated again. 4. 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 The patient will be transferred to tertiary facility and mass biopsy. 5. Dysphagia, status post PEG placement with negative rapid COVID test 6. Right upper lobe pneumonia, on IV antibiotic. 7. Dementia. On Ativan for agitation. Subjective Subjective On the Vent with 30% Fio2 and PEEP 5 ECho EF 60% No more lopez event Objective Last 24 Hour Vital Signs Date Time Temp Pulse Resp B/P (MAP) Pulse Ox O2 Delivery O2 Flow Rate FiO2 07/28/20 17:17 147/56 07/28/20 17:00 106 21 147/56 (86) 99 07/28/20 16:00 99.0 109 20 144/54 (84) 98 07/28/20 16:00 Endotracheal Tube 07/28/20 15:40 30 07/28/20 15:19 94 07/28/20 15:00 101 19 141/54 (83) 100 07/28/20 14:00 92 17 142/52 (82) 100 07/28/20 13:14 90 17 30 07/28/20 13:00 110 21 162/61 (94) 100 07/28/20 12:00 98.7 94 18 148/58 (88) 100 07/28/20 12:00 Endotracheal Tube 07/28/20 11:56 139/52 07/28/20 11:21 91 07/28/20 11:00 115 25 139/52 (81) 100 07/28/20 10:00 95 20 138/53 (81) 100 07/28/20 09:12 40 07/28/20 09:00 89 23 136/57 (83) 100 07/28/20 08:00 50 07/28/20 08:00 Endotracheal Tube 07/28/20 08:00 102 20 146/54 (84) 100 07/28/20 07:59 90 17 50 07/28/20 07:47 103 07/28/20 05:13 132/63 07/28/20 04:30 93 07/28/20 04:00 50 07/28/20 04:00 Mechanical Ventilator 50.0 07/28/20 04:00 99.0 89 17 132/63 (86) 100 07/28/20 01:14 98 16 50 07/28/20 01:00 101 17 149/56 (87) 100 07/28/20 00:00 99.5 90 16 121/52 (75) 100 07/28/20 00:00 Mechanical Ventilator 50.0 07/28/20 00:00 50 07/27/20 23:37 100 07/27/20 23:22 129/60 07/27/20 21:00 Mechanical Ventilator 50.0 07/27/20 20:00 98.8 109 18 129/60 (83) 100 07/27/20 19:26 99 07/27/20 19:10 108 16 50 07/27/20 19:00 109 19 125/57 (79) 100 07/27/20 19:00 50 Intake and Output 07/27/20 07/28/20 19:00 07:00 Intake Total 230 ml 370 ml Output Total 400 ml 200 ml Balance -170 ml 170 ml Free Water 90 ml 40 ml Tube Feeding 140 ml 330 ml Output Urine Total 400 ml 200 ml # Voids 3 Laboratory Tests Test 07/28/20 05:35 07/28/20 15:34 White Blood Count 20.3 K/UL (4.8-10.8) H Red Blood Count 4.15 M/UL (4.20-5.40) L Hemoglobin 11.9 G/DL (12.0-16.0) L Hematocrit 37.9 % (37.0-47.0) Mean Corpuscular Volume 91 FL (80-99) Mean Corpuscular Hemoglobin 28.7 PG (27.0-31.0) Mean Corpuscular Hemoglobin Concent 31.4 G/DL (32.0-36.0) L Red Cell Distribution Width 13.6 % (11.6-14.8) Platelet Count 297 K/UL (150-450) Mean Platelet Volume 7.2 FL (6.5-10.1) Neutrophils (%) (Auto) % (45.0-75.0) Lymphocytes (%) (Auto) % (20.0-45.0) Monocytes (%) (Auto) % (1.0-10.0) Eosinophils (%) (Auto) % (0.0-3.0) Basophils (%) (Auto) % (0.0-2.0) Differential Total Cells Counted 100 Neutrophils % (Manual) 85 % (45-75) H Lymphocytes % (Manual) 5 % (20-45) L Monocytes % (Manual) 10 % (1-10) Eosinophils % (Manual) 0 % (0-3) Basophils % (Manual) 0 % (0-2) Band Neutrophils 0 % (0-8) Platelet Estimate Adequate Platelet Morphology Normal Hypochromasia 1+ Sodium Level 134 MMOL/L (136-145) L Potassium Level 3.8 MMOL/L (3.5-5.1) Chloride Level 100 MMOL/L (98-107) Carbon Dioxide Level 30 MMOL/L (21-32) Anion Gap 4 mmol/L (5-15) L Blood Urea Nitrogen 28 mg/dL (7-18) H Creatinine 0.6 MG/DL (0.55-1.30) Estimat Glomerular Filtration Rate > 60 mL/min (>60) Glucose Level 151 MG/DL (74-106) H Calcium Level 8.9 MG/DL (8.5-10.1) Total Bilirubin 0.8 MG/DL (0.2-1.0) Aspartate Amino Transf (AST/SGOT) 38 U/L (15-37) H Alanine Aminotransferase (ALT/SGPT) 22 U/L (12-78) Alkaline Phosphatase 80 U/L (46-116) Troponin I 0.047 ng/mL (0.000-0.056) Total Protein 6.9 G/DL (6.4-8.2) Albumin 2.1 G/DL (3.4-5.0) L Globulin 4.8 g/dL Albumin/Globulin Ratio 0.4 (1.0-2.7) L Thyroid Stimulating Hormone (TSH) 0.492 uiU/mL (0.358-3.740) Free Thyroxine 1.29 NG/DL (0.76-1.46) Arterial Blood pH 7.453 (7.350-7.450) Arterial Blood Partial Pressure CO2 42.0 mmHg (35.0-45.0) Arterial Blood Partial Pressure O2 Pending Arterial Blood HCO3 28.7 mmol/L (22.0-26.0) H Arterial Blood Oxygen Saturation 97.2 % (95-100) Arterial Blood Base Excess 4.4 (-2-2) H Philip Test Positive Objective HEAD AND NECK: orally intubated with a large neck mass. LUNGS: Coarse rhonchi. CARDIOVASCULAR: Shows regular S1 and S2 with no gallop. ABDOMEN: Soft. EXTREMITIES: No pitting edema. Philip Whalen MD Jul 28, 2020 18:05
[2020-07-28] MEDS ORDERED: Tubing IV Secondary IV ONE (23:15)
[2020-07-28] MEDS ORDERED: NS 275ml ONE (23:15)
[2020-07-28] MEDS: Haloperidol 5mg/ml Inj IM PRN (23:51)
[2020-07-29] VITALS (25 sets, daily range): BP systolic 124–190; BP diastolic 42–81
[2020-07-29] MEDS: HydrALAZINE 10mg Tab ORAL SCH ×3 (05:35→17:39)
[2020-07-29 07:03] LABS: HEMATOCRIT 36.2 % (37.0-47.0); HEMOGLOBIN 11.4 G/DL (12.0-16.0); MEAN CORPUSCULAR VOLUME 93 FL (80-99); PLATELET COUNT 268 K/UL (150-450); RED BLOOD COUNT 3.89 M/UL (4.20-5.40); RED CELL DISTRIBUTION WIDTH 13.3 % (11.6-14.8); WHITE BLOOD COUNT 14.8 K/UL (4.8-10.8)
[2020-07-29 07:28] LABS: ANION GAP 3 mmol/L (5-15); BLOOD UREA NITROGEN 25 mg/dL (7-18); CARBON DIOXIDE 32 MMOL/L (21-32); CHLORIDE 101 MMOL/L (98-107); CREATININE 0.6 MG/DL (0.55-1.30); POTASSIUM 3.8 MMOL/L (3.5-5.1); SODIUM 136 MMOL/L (136-145)
[2020-07-29] MEDS: Heparin 5000 units/ml inj SUBQ SCH ×2 (09:26→21:45)
--- NOTE | 2020-07-29 11:14 | Diagnostic Imaging Report ---
Indication: Cough Technique: One view of the chest Comparison: 07/27/2020 Findings: The heart size is normal. Interim development of atelectasis, consolidation, and/or pleural fluid at the left lung base. The left upper lung, right lung and right pleural space are all clear. Stable satisfactory position of endotracheal tube. Impression: Left basilar opacity, likely atelectasis, consolidation, pleural fluid, or combination of such, new since previous exam
[2020-07-29] MEDS: Acetaminophen 650mg/20.3ml GT PRN ×2 (11:24→21:46)
--- NOTE | 2020-07-29 12:38 | General Progress Note ---
Subjective ROS Limited/Unobtainable: No Allergies: Coded Allergies: No Known Allergies (Unverified , 02/05/19) Objective Last 24 Hour Vital Signs Date Time Temp Pulse Resp B/P (MAP) Pulse Ox O2 Delivery O2 Flow Rate FiO2 07/29/20 12:00 30 07/29/20 12:00 109 07/29/20 12:00 Endotracheal Tube 07/29/20 12:00 101.3 102 22 127/43 (71) 100 07/29/20 11:54 101.6 07/29/20 11:23 139/47 07/29/20 11:00 102.0 107 21 139/47 (77) 100 07/29/20 10:00 106 21 147/50 (82) 100 07/29/20 09:00 117 21 143/48 (79) 100 07/29/20 08:00 30 07/29/20 08:00 122 26 155/53 (87) 99 07/29/20 08:00 Endotracheal Tube 07/29/20 08:00 110 07/29/20 07:00 113 21 141/50 (80) 100 07/29/20 06:00 119 22 152/51 (84) 99 07/29/20 05:35 143/48 07/29/20 05:00 115 21 137/47 (77) 97 07/29/20 04:00 Endotracheal Tube 07/29/20 04:00 30 07/29/20 04:00 123 07/29/20 04:00 98.7 114 20 148/46 (80) 97 07/29/20 04:00 Endotracheal Tube 07/29/20 03:00 112 20 149/54 (85) 97 07/29/20 02:00 116 20 155/59 (91) 98 07/29/20 01:00 119 20 149/59 (89) 98 07/29/20 00:10 131 23 30 07/29/20 00:00 99.0 124 22 190/81 (117) 100 07/29/20 00:00 125 07/29/20 00:00 30 07/29/20 00:00 Endotracheal Tube 07/29/20 00:00 Endotracheal Tube 07/28/20 23:50 167/62 07/28/20 23:00 114 26 180/74 (109) 98 07/28/20 22:00 92 26 137/48 (77) 99 07/28/20 21:00 89 24 135/47 (76) 100 07/28/20 20:00 Endotracheal Tube 07/28/20 20:00 90 07/28/20 20:00 98.8 90 24 130/47 (74) 99 07/28/20 20:00 30 07/28/20 19:00 97 33 133/52 (79) 99 07/28/20 18:43 107 22 30 07/28/20 18:00 95 19 142/53 (82) 99 07/28/20 17:17 147/56 07/28/20 17:00 106 21 147/56 (86) 99 07/28/20 16:00 99.0 109 20 144/54 (84) 98 07/28/20 16:00 Endotracheal Tube 07/28/20 15:40 30 07/28/20 15:19 94 07/28/20 15:00 101 19 141/54 (83) 100 07/28/20 14:00 92 17 142/52 (82) 100 07/28/20 13:14 90 17 30 07/28/20 13:00 110 21 162/61 (94) 100 Intake and Output 07/28/20 07/29/20 19:00 07:00 Intake Total 450 ml 670 ml Output Total 700 ml 700 ml Balance -250 ml -30 ml Tube Feeding 450 ml 670 ml Output Urine Total 700 ml 700 ml Laboratory Tests 07/28/20 15:34: Arterial Blood pH 7.453H, Arterial Blood Partial Pressure CO2 42.0, Arterial Blood Partial Pressure O2 [Pending], Arterial Blood HCO3 28.7H, Arterial Blood Oxygen Saturation 97.2, Arterial Blood Base Excess 4.4H, Philip Test Positive 07/29/20 05:31: White Blood Count 14.8H, Red Blood Count 3.89L, Hemoglobin 11.4L, Hematocrit 36.2L, Mean Corpuscular Volume 93, Mean Corpuscular Hemoglobin 29.3, Mean Corpuscular Hemoglobin Concent 31.6L, Red Cell Distribution Width 13.3, Platelet Count 268, Mean Platelet Volume 7.3, Neutrophils (%) (Auto) , Lymphocytes (%) (Auto) , Monocytes (%) (Auto) , Eosinophils (%) (Auto) , Basophils (%) (Auto) , Differential Total Cells Counted 100, Neutrophils % (Manual) 94H, Lymphocytes % (Manual) 4L, Monocytes % (Manual) 2, Eosinophils % (Manual) 0, Basophils % (Manual) 0, Band Neutrophils 0, Platelet Estimate Adequate, Platelet Morphology Normal, Hypochromasia 1+, Sodium Level 136, Potassium Level 3.8, Chloride Level 101, Carbon Dioxide Level 32, Anion Gap 3L, Blood Urea Nitrogen 25H, Creatinine 0.6, Estimat Glomerular Filtration Rate > 60, Glucose Level 151H, Calcium Level 9.0 07/29/20 11:40: Arterial Blood pH 7.495H, Arterial Blood Partial Pressure CO2 41.3, Arterial Blood Partial Pressure O2 , Arterial Blood HCO3 31.1H, Arterial Blood Oxygen Saturation 96.9, Arterial Blood Base Excess 7.2H, Philip Test Positive Height (Feet): 5 Height (Inches): 3.00 Weight (Pounds): 1633 General Appearance: lethargic EENT: normal ENT inspection Neck: supple Cardiovascular: normal rate Respiratory/Chest: decreased breath sounds Abdomen: normal bowel sounds, non tender, soft Extremities: non-tender Assessment/Plan Assessment/Plan: 1. Large neck mass, 2. Tracheal deviation. 3. Difficulty swallowing. - ST eval pending 4. Possible right upper lobe pneumonia. 5. Leukocytosis. 6. Failure to thrive. 7. Dysphagia. - ST eval pending 8. Dementia 9. Hypertension 10 resp failure on Vent s/p PEG GTF HL iv monitor for residuals fu Andrea Murdock MD Jul 29, 2020 12:38
[2020-07-29] MEDS ORDERED: Succinylcholine 20mg/ml 10ml vial ONE (13:36)
--- NOTE | 2020-07-29 15:56 | Cardiac Electrophysiology PN ---
Assessment/Plan Assessment/Plan 1. Status post bradycardic arrest, likely due to sick sinus syndrome in this 89-year-old lady. The patient did not have any respiratory issue at that time and was extubated earlier per staff. We will watch the patient on telemetry while she is intubated and monitor her heart rate. Obviously, she would be off of any sinus node or AV fabiola affecting agent. EF 60% and ruled out for RI. May also be due to Right neck mass pressure on the carotid artery ( Like Carotid sinus hypersensitivity) 2. Hypertension, on hydralazine 10 mg every 6 hours and p.r.n. IV hydralazine. 3. Respiratory failure, intubated 4. 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 May need to be transferred to tertiary facility and mass biopsy. 5. Dysphagia, status post PEG placement with negative rapid COVID test 6. Right upper lobe pneumonia, on IV antibiotic. 7. Dementia. On Ativan for agitation. Subjective Subjective On the Vent with 30% Fio2 and PEEP 5 Echo EF 60% No more lopez event Objective Last 24 Hour Vital Signs Date Time Temp Pulse Resp B/P (MAP) Pulse Ox O2 Delivery O2 Flow Rate FiO2 07/29/20 15:00 88 16 124/53 (76) 99 07/29/20 14:00 100.2 104 21 145/67 (93) 100 07/29/20 13:00 92 21 130/42 (71) 100 07/29/20 12:00 30 07/29/20 12:00 109 07/29/20 12:00 Endotracheal Tube 07/29/20 12:00 101.3 102 22 127/43 (71) 100 07/29/20 11:54 101.6 07/29/20 11:23 139/47 07/29/20 11:00 102.0 107 21 139/47 (77) 100 07/29/20 10:00 106 21 147/50 (82) 100 07/29/20 09:00 117 21 143/48 (79) 100 07/29/20 08:00 30 07/29/20 08:00 122 26 155/53 (87) 99 07/29/20 08:00 Endotracheal Tube 07/29/20 08:00 110 07/29/20 07:00 113 21 141/50 (80) 100 07/29/20 06:00 119 22 152/51 (84) 99 07/29/20 05:35 143/48 07/29/20 05:00 115 21 137/47 (77) 97 07/29/20 04:00 Endotracheal Tube 07/29/20 04:00 30 07/29/20 04:00 123 07/29/20 04:00 98.7 114 20 148/46 (80) 97 07/29/20 04:00 Endotracheal Tube 07/29/20 03:00 112 20 149/54 (85) 97 07/29/20 02:00 116 20 155/59 (91) 98 07/29/20 01:00 119 20 149/59 (89) 98 07/29/20 00:10 131 23 30 07/29/20 00:00 99.0 124 22 190/81 (117) 100 07/29/20 00:00 125 07/29/20 00:00 30 07/29/20 00:00 Endotracheal Tube 07/29/20 00:00 Endotracheal Tube 07/28/20 23:50 167/62 07/28/20 23:00 114 26 180/74 (109) 98 07/28/20 22:00 92 26 137/48 (77) 99 07/28/20 21:00 89 24 135/47 (76) 100 07/28/20 20:00 Endotracheal Tube 07/28/20 20:00 90 07/28/20 20:00 98.8 90 24 130/47 (74) 99 07/28/20 20:00 30 07/28/20 19:00 97 33 133/52 (79) 99 07/28/20 18:43 107 22 30 07/28/20 18:00 95 19 142/53 (82) 99 07/28/20 17:17 147/56 07/28/20 17:00 106 21 147/56 (86) 99 07/28/20 16:00 99.0 109 20 144/54 (84) 98 07/28/20 16:00 Endotracheal Tube Intake and Output 07/28/20 07/29/20 19:00 07:00 Intake Total 450 ml 670 ml Output Total 700 ml 700 ml Balance -250 ml -30 ml Tube Feeding 450 ml 670 ml Output Urine Total 700 ml 700 ml Laboratory Tests Test 07/29/20 05:31 07/29/20 11:40 White Blood Count 14.8 K/UL (4.8-10.8) H Red Blood Count 3.89 M/UL (4.20-5.40) L Hemoglobin 11.4 G/DL (12.0-16.0) L Hematocrit 36.2 % (37.0-47.0) L Mean Corpuscular Volume 93 FL (80-99) Mean Corpuscular Hemoglobin 29.3 PG (27.0-31.0) Mean Corpuscular Hemoglobin Concent 31.6 G/DL (32.0-36.0) L Red Cell Distribution Width 13.3 % (11.6-14.8) Platelet Count 268 K/UL (150-450) Mean Platelet Volume 7.3 FL (6.5-10.1) Neutrophils (%) (Auto) % (45.0-75.0) Lymphocytes (%) (Auto) % (20.0-45.0) Monocytes (%) (Auto) % (1.0-10.0) Eosinophils (%) (Auto) % (0.0-3.0) Basophils (%) (Auto) % (0.0-2.0) Differential Total Cells Counted 100 Neutrophils % (Manual) 94 % (45-75) H Lymphocytes % (Manual) 4 % (20-45) L Monocytes % (Manual) 2 % (1-10) Eosinophils % (Manual) 0 % (0-3) Basophils % (Manual) 0 % (0-2) Band Neutrophils 0 % (0-8) Platelet Estimate Adequate Platelet Morphology Normal Hypochromasia 1+ Sodium Level 136 MMOL/L (136-145) Potassium Level 3.8 MMOL/L (3.5-5.1) Chloride Level 101 MMOL/L (98-107) Carbon Dioxide Level 32 MMOL/L (21-32) Anion Gap 3 mmol/L (5-15) L Blood Urea Nitrogen 25 mg/dL (7-18) H Creatinine 0.6 MG/DL (0.55-1.30) Estimat Glomerular Filtration Rate > 60 mL/min (>60) Glucose Level 151 MG/DL (74-106) H Calcium Level 9.0 MG/DL (8.5-10.1) Arterial Blood pH 7.495 (7.350-7.450) Arterial Blood Partial Pressure CO2 41.3 mmHg (35.0-45.0) Arterial Blood Partial Pressure O2 mmHg (75.0-100.0) Arterial Blood HCO3 31.1 mmol/L (22.0-26.0) H Arterial Blood Oxygen Saturation 96.9 % (95-100) Arterial Blood Base Excess 7.2 (-2-2) H Philip Test Positive Objective HEAD AND NECK: orally intubated with a large neck mass. LUNGS: Coarse rhonchi. CARDIOVASCULAR: Shows regular S1 and S2 with no gallop. ABDOMEN: Soft. EXTREMITIES: No pitting edema. Philip Whalen MD Jul 29, 2020 15:56
[2020-07-29] MEDS: Haloperidol 5mg/ml Inj IM PRN (16:30)
[2020-07-29] MEDS: cefTRIAXone 1 GM in D5W 55 ML IVPB SCH (17:39)
--- NOTE | 2020-07-29 17:40 | Pulmonology Progress Note ---
Subjective ROS Limited/Unobtainable: No Interval Events: s/p intubation Constitutional: Reports: no symptoms HEENT: Repors: no symptoms Respiratory: Reports: productive cough Cardiovascular: Reports: no symptoms Allergies: Coded Allergies: No Known Allergies (Unverified , 02/05/19) Objective Last 24 Hour Vital Signs Date Time Temp Pulse Resp B/P (MAP) Pulse Ox O2 Delivery O2 Flow Rate FiO2 07/29/20 17:00 99.7 103 16 135/56 (82) 100 07/29/20 16:00 30 07/29/20 16:00 99.7 108 16 150/79 (102) 100 07/29/20 16:00 Endotracheal Tube 07/29/20 16:00 108 07/29/20 15:00 88 16 124/53 (76) 99 07/29/20 14:00 100.2 104 21 145/67 (93) 100 07/29/20 13:00 92 21 130/42 (71) 100 07/29/20 12:00 30 07/29/20 12:00 109 07/29/20 12:00 Endotracheal Tube 07/29/20 12:00 101.3 102 22 127/43 (71) 100 07/29/20 11:54 101.6 07/29/20 11:23 139/47 07/29/20 11:00 102.0 107 21 139/47 (77) 100 07/29/20 10:00 106 21 147/50 (82) 100 07/29/20 09:00 117 21 143/48 (79) 100 07/29/20 08:00 30 07/29/20 08:00 122 26 155/53 (87) 99 07/29/20 08:00 Endotracheal Tube 07/29/20 08:00 110 07/29/20 07:00 113 21 141/50 (80) 100 07/29/20 06:00 119 22 152/51 (84) 99 07/29/20 05:35 143/48 07/29/20 05:00 115 21 137/47 (77) 97 07/29/20 04:00 Endotracheal Tube 07/29/20 04:00 30 07/29/20 04:00 123 07/29/20 04:00 98.7 114 20 148/46 (80) 97 07/29/20 04:00 Endotracheal Tube 07/29/20 03:00 112 20 149/54 (85) 97 07/29/20 02:00 116 20 155/59 (91) 98 07/29/20 01:00 119 20 149/59 (89) 98 07/29/20 00:10 131 23 30 07/29/20 00:00 99.0 124 22 190/81 (117) 100 07/29/20 00:00 125 07/29/20 00:00 30 07/29/20 00:00 Endotracheal Tube 07/29/20 00:00 Endotracheal Tube 07/28/20 23:50 167/62 07/28/20 23:00 114 26 180/74 (109) 98 07/28/20 22:00 92 26 137/48 (77) 99 07/28/20 21:00 89 24 135/47 (76) 100 07/28/20 20:00 Endotracheal Tube 07/28/20 20:00 90 07/28/20 20:00 98.8 90 24 130/47 (74) 99 07/28/20 20:00 30 07/28/20 19:00 97 33 133/52 (79) 99 07/28/20 18:43 107 22 30 07/28/20 18:00 95 19 142/53 (82) 99 Intake and Output 07/28/20 07/29/20 19:00 07:00 Intake Total 450 ml 670 ml Output Total 700 ml 700 ml Balance -250 ml -30 ml Tube Feeding 450 ml 670 ml Output Urine Total 700 ml 700 ml General Appearance: no acute distress HEENT: normocephalic, other - neck mass+, PEG Respiratory: chest wall non-tender, lungs clear Cardiovascular: normal peripheral pulses, normal rate Abdomen: normal bowel sounds, soft, non tender Extremities: no cyanosis Laboratory Tests 07/29/20 05:31: White Blood Count 14.8H, Red Blood Count 3.89L, Hemoglobin 11.4L, Hematocrit 36.2L, Mean Corpuscular Volume 93, Mean Corpuscular Hemoglobin 29.3, Mean Corpuscular Hemoglobin Concent 31.6L, Red Cell Distribution Width 13.3, Platelet Count 268, Mean Platelet Volume 7.3, Neutrophils (%) (Auto) , Lymphocytes (%) (Auto) , Monocytes (%) (Auto) , Eosinophils (%) (Auto) , Basophils (%) (Auto) , Differential Total Cells Counted 100, Neutrophils % (Manual) 94H, Lymphocytes % (Manual) 4L, Monocytes % (Manual) 2, Eosinophils % (Manual) 0, Basophils % (Manual) 0, Band Neutrophils 0, Platelet Estimate Adequate, Platelet Morphology Normal, Hypochromasia 1+, Sodium Level 136, Potassium Level 3.8, Chloride Level 101, Carbon Dioxide Level 32, Anion Gap 3L, Blood Urea Nitrogen 25H, Creatinine 0.6, Estimat Glomerular Filtration Rate > 60, Glucose Level 151H, Calcium Level 9.0 07/29/20 11:40: Arterial Blood pH 7.495H, Arterial Blood Partial Pressure CO2 41.3, Arterial Blood Partial Pressure O2 , Arterial Blood HCO3 31.1H, Arterial Blood Oxygen Saturation 96.9, Arterial Blood Base Excess 7.2H, Philip Test Positive Current Medications Medications (Trade) Dose Ordered Sig/Alexei Route PRN Reason Start Time Stop Time Status Last Admin Dose Admin Acetaminophen (Tylenol) 650 mg Q6H PRN GT Temp >100.5 07/29/20 11:15 08/28/20 11:14 07/29/20 11:24 Ceftriaxone Sodium 1 gm/ Dextrose 55 ml @ 110 mls/hr Q24H IVPB 07/28/20 17:00 08/04/20 16:59 07/28/20 17:17 Haloperidol Lactate (Haldol) 2.5 mg Q12H PRN IM Agitation 07/20/20 14:00 09/03/20 13:59 07/29/20 16:30 Heparin Sodium (Porcine) (Heparin 5000 units/ml) 5,000 units EVERY 12 HOURS SUBQ 07/20/20 21:00 09/03/20 20:59 07/29/20 09:26 Hydralazine HCl (Apresoline) 5 mg Q6H PRN IV For High Blood Pressure 07/22/20 19:15 10/20/20 19:14 07/25/20 09:22 Hydralazine HCl (Apresoline) 10 mg Q6HR ORAL 07/20/20 12:00 10/18/20 11:59 07/29/20 11:23 Polyethylene Glycol (Miralax) 17 gm DAILYPRN PRN ORAL Constipation 07/26/20 09:45 08/25/20 09:44 1/3/21 17:43 Assessment/Plan Assessment/Plan IMPRESSION: 1. 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 - She will need to be transferred to contracted facility given lack of ENT at our facility. - She needs to have biopsy of this mass. 2. Tracheal deviation. 3. Dysphagia - Pt failed ST eval - s/p PEG - rapid COVID-19 test prior to EGD -negative 4. Possible right upper lobe pneumonia. - s/p broad-spectrum antibiotics. 5. Leukocytosis. 6. Hypokalemia. - K replaced; improving - s/p Dextrose with KCl 7. Failure to thrive. 8. Dementia - Haldol and Ativan for agitation; has underlying dementia 9. Hypertension - on IV hydralazine prn 10. constipation - miralax 11. Respiratory failure - s/p intubated - had sudden AMS and syncope as she was being discharged - extubated yesterday but had to be re-intubated; likely primary cardiac event - Family updated; needs transfer to higher level of care Santo Proctor MD Jul 29, 2020 17:40
[2020-07-29] MEDS: NS w/KCl 20mEq 1000ml 1,000 ML IV SCH (19:11)
[2020-07-29] MEDS ORDERED: Piperacillin/Tazobactam 3.375 GM in NS 110 ML IVPB SCH (20:00)
[2020-07-29] MEDS: Piperacillin/Tazobactam 3.375 GM in NS 110 ML IVPB SCH (21:45)
[2020-07-30] VITALS (25 sets, daily range): BP systolic 96–158; BP diastolic 46–75
[2020-07-30] MEDS: HydrALAZINE 10mg Tab ORAL SCH ×4 (00:25→18:36)
[2020-07-30] MEDS: Piperacillin/Tazobactam 3.375 GM in NS 110 ML IVPB SCH ×3 (05:36→22:17)
[2020-07-30 06:22] LABS: BASOPHILS % (AUTO) 1.1 % (0.0-2.0); EOSINOPHILS % (AUTO) 0.4 % (0.0-3.0); HEMATOCRIT 33.9 % (37.0-47.0); HEMOGLOBIN 11.1 G/DL (12.0-16.0); LYMPHOCYTES % (AUTO) 7.4 % (20.0-45.0); MEAN CORPUSCULAR VOLUME 90 FL (80-99); MONOCYTES % (AUTO) 9.7 % (1.0-10.0); NEUTROPHILS % (AUTO) 81.4 % (45.0-75.0); PLATELET COUNT 258 K/UL (150-450); RED BLOOD COUNT 3.78 M/UL (4.20-5.40); RED CELL DISTRIBUTION WIDTH 14.3 % (11.6-14.8); WHITE BLOOD COUNT 13.5 K/UL (4.8-10.8)
[2020-07-30 07:06] LABS: ANION GAP 5 mmol/L (5-15); BLOOD UREA NITROGEN 26 mg/dL (7-18); CALCIUM 9.1 MG/DL (8.5-10.1); CARBON DIOXIDE 32 MMOL/L (21-32); CHLORIDE 100 MMOL/L (98-107); CREATININE 0.6 MG/DL (0.55-1.30); POTASSIUM 3.6 MMOL/L (3.5-5.1); SODIUM 137 MMOL/L (136-145)
[2020-07-30] MEDS: Heparin 5000 units/ml inj SUBQ SCH ×2 (08:20→20:47)
--- NOTE | 2020-07-30 09:43 | General Progress Note ---
Subjective ROS Limited/Unobtainable: No Allergies: Coded Allergies: No Known Allergies (Unverified , 02/05/19) Objective Last 24 Hour Vital Signs Date Time Temp Pulse Resp B/P (MAP) Pulse Ox O2 Delivery O2 Flow Rate FiO2 07/30/20 08:00 98.3 93 19 132/48 (76) 100 07/30/20 08:00 30 07/30/20 07:04 100 21 30 07/30/20 06:45 90 27 99 07/30/20 06:00 88 20 133/61 (85) 100 07/30/20 06:00 Endotracheal Tube 07/30/20 05:35 136/70 07/30/20 05:00 106 23 158/66 (96) 100 07/30/20 04:00 30 07/30/20 04:00 98.2 88 17 136/52 (80) 100 07/30/20 04:00 Endotracheal Tube 07/30/20 03:40 91 07/30/20 03:04 89 22 30 07/30/20 03:00 93 20 127/52 (77) 99 07/30/20 02:00 100 22 132/61 (84) 92 07/30/20 01:00 97 18 116/49 (71) 97 07/30/20 00:25 126/77 07/30/20 00:00 Endotracheal Tube 07/30/20 00:00 98.5 96 19 121/49 (73) 97 07/30/20 00:00 30 07/29/20 23:38 111 07/29/20 23:30 115 26 145/56 (85) 97 07/29/20 23:02 123 26 30 07/29/20 22:30 111 38 132/53 (79) 97 07/29/20 22:16 99.3 07/29/20 22:00 98.7 106 21 147/54 (85) 99 07/29/20 21:00 104 21 144/56 (85) 99 07/29/20 20:00 100.8 105 20 153/61 (91) 98 07/29/20 20:00 30 07/29/20 20:00 Endotracheal Tube 07/29/20 19:46 111 07/29/20 19:00 99.2 105 20 153/61 (91) 98 07/29/20 18:57 117 24 30 07/29/20 18:00 99.7 103 21 158/64 (95) 98 07/29/20 17:39 135/56 07/29/20 17:00 99.7 103 16 135/56 (82) 100 07/29/20 16:00 30 07/29/20 16:00 99.7 108 16 150/79 (102) 100 07/29/20 16:00 Endotracheal Tube 07/29/20 16:00 108 07/29/20 15:00 88 16 124/53 (76) 99 07/29/20 14:00 100.2 104 21 145/67 (93) 100 07/29/20 13:00 92 21 130/42 (71) 100 07/29/20 12:34 88 16 30 07/29/20 12:00 30 07/29/20 12:00 109 07/29/20 12:00 Endotracheal Tube 07/29/20 12:00 101.3 102 22 127/43 (71) 100 07/29/20 11:54 101.6 07/29/20 11:23 139/47 07/29/20 11:00 102.0 107 21 139/47 (77) 100 07/29/20 10:00 106 21 147/50 (82) 100 Intake and Output 07/29/20 07/30/20 19:00 07:00 Intake Total 960 ml 1478.3333 ml Output Total 440 ml 250 ml Balance 520 ml 1228.3333 ml Free Water 240 ml 30 ml IV Total 728.3333 ml Tube Feeding 720 ml 720 ml Output Urine Total 440 ml 250 ml # Voids 5 # Bowel Movements 6 Laboratory Tests 07/29/20 11:40: Arterial Blood pH 7.495H, Arterial Blood Partial Pressure CO2 41.3, Arterial Blood Partial Pressure O2 , Arterial Blood HCO3 31.1H, Arterial Blood Oxygen Saturation 96.9, Arterial Blood Base Excess 7.2H, Philip Test Positive 07/30/20 04:10: White Blood Count 13.5H, Red Blood Count 3.78L, Hemoglobin 11.1L, Hematocrit 33.9L, Mean Corpuscular Volume 90, Mean Corpuscular Hemoglobin 29.3, Mean Corpuscular Hemoglobin Concent 32.6, Red Cell Distribution Width 14.3, Platelet Count 258, Mean Platelet Volume 7.9, Neutrophils (%) (Auto) 81.4H, Lymphocytes (%) (Auto) 7.4L, Monocytes (%) (Auto) 9.7, Eosinophils (%) (Auto) 0.4, Basophils (%) (Auto) 1.1, Sodium Level 137, Potassium Level 3.6, Chloride Level 100, Carbon Dioxide Level 32, Anion Gap 5, Blood Urea Nitrogen 26H, Creatinine 0.6, Estimat Glomerular Filtration Rate > 60, Glucose Level 137H, Calcium Level 9.1 Height (Feet): 5 Height (Inches): 3.00 Weight (Pounds): 1633 General Appearance: no apparent distress EENT: normal ENT inspection Neck: supple Cardiovascular: normal rate Respiratory/Chest: decreased breath sounds Abdomen: hypoactive bowel sounds Extremities: non-tender Assessment/Plan Assessment/Plan: 1. Large neck mass, 2. Tracheal deviation. 3. Difficulty swallowing. - ST eval pending 4. Possible right upper lobe pneumonia. 5. Leukocytosis. 6. Failure to thrive. 7. Dysphagia. - ST eval pending 8. Dementia 9. Hypertension 10 resp failure on Vent s/p PEG GTF HL iv monitor for residuals fu pulAndrea Moralez MD Jul 30, 2020 09:43
--- NOTE | 2020-07-30 11:39 | Cardiac Electrophysiology PN ---
Assessment/Plan Assessment/Plan 1. Status post bradycardic arrest, likely due to sick sinus syndrome in this 89-year-old lady. The patient did not have any respiratory issue at that time and was extubated earlier per staff. We will watch the patient on telemetry while she is intubated and monitor her heart rate. Obviously, she would be off of any sinus node or AV fabiola affecting agent. EF 60% and ruled out for MA. May also be due to Right neck mass pressure on the carotid artery ( Like Carotid sinus hypersensitivity) 2. Hypertension, on hydralazine 10 mg every 6 hours and p.r.n. IV hydralazine. 3. Respiratory failure, intubated 4. 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 May need to be transferred to tertiary facility and mass biopsy. 5. Dysphagia, status post PEG placement with negative rapid COVID test 6. Right upper lobe pneumonia, on IV antibiotic. 7. Dementia. On Ativan for agitation. Subjective Subjective On the Vent with 30% Fio2 and PEEP 5 Echo EF 60% Had fever 100.8 Objective Last 24 Hour Vital Signs Date Time Temp Pulse Resp B/P (MAP) Pulse Ox O2 Delivery O2 Flow Rate FiO2 07/30/20 11:02 95 20 30 07/30/20 10:00 90 20 132/46 (74) 100 07/30/20 09:00 93 20 135/47 (76) 99 07/30/20 08:00 98.3 93 19 132/48 (76) 100 07/30/20 08:00 98 07/30/20 08:00 Endotracheal Tube 07/30/20 08:00 30 07/30/20 07:04 100 21 30 07/30/20 06:45 90 27 99 07/30/20 06:00 88 20 133/61 (85) 100 07/30/20 06:00 Endotracheal Tube 07/30/20 05:35 136/70 07/30/20 05:00 106 23 158/66 (96) 100 07/30/20 04:00 30 07/30/20 04:00 98.2 88 17 136/52 (80) 100 07/30/20 04:00 Endotracheal Tube 07/30/20 03:40 91 07/30/20 03:04 89 22 30 07/30/20 03:00 93 20 127/52 (77) 99 07/30/20 02:00 100 22 132/61 (84) 92 07/30/20 01:00 97 18 116/49 (71) 97 07/30/20 00:25 126/77 07/30/20 00:00 Endotracheal Tube 07/30/20 00:00 98.5 96 19 121/49 (73) 97 07/30/20 00:00 30 07/29/20 23:38 111 07/29/20 23:30 115 26 145/56 (85) 97 07/29/20 23:02 123 26 30 07/29/20 22:30 111 38 132/53 (79) 97 07/29/20 22:16 99.3 07/29/20 22:00 98.7 106 21 147/54 (85) 99 07/29/20 21:00 104 21 144/56 (85) 99 07/29/20 20:00 100.8 105 20 153/61 (91) 98 07/29/20 20:00 30 07/29/20 20:00 Endotracheal Tube 07/29/20 19:46 111 07/29/20 19:00 99.2 105 20 153/61 (91) 98 07/29/20 18:57 117 24 30 07/29/20 18:00 99.7 103 21 158/64 (95) 98 07/29/20 17:39 135/56 07/29/20 17:00 99.7 103 16 135/56 (82) 100 07/29/20 16:00 30 07/29/20 16:00 99.7 108 16 150/79 (102) 100 07/29/20 16:00 Endotracheal Tube 07/29/20 16:00 108 07/29/20 15:00 88 16 124/53 (76) 99 07/29/20 14:00 100.2 104 21 145/67 (93) 100 07/29/20 13:00 92 21 130/42 (71) 100 07/29/20 12:34 88 16 30 07/29/20 12:00 30 07/29/20 12:00 109 07/29/20 12:00 Endotracheal Tube 07/29/20 12:00 101.3 102 22 127/43 (71) 100 07/29/20 11:54 101.6 Intake and Output 07/29/20 07/30/20 19:00 07:00 Intake Total 960 ml 1478.3333 ml Output Total 440 ml 250 ml Balance 520 ml 1228.3333 ml Free Water 240 ml 30 ml IV Total 728.3333 ml Tube Feeding 720 ml 720 ml Output Urine Total 440 ml 250 ml # Voids 5 # Bowel Movements 6 Laboratory Tests Test 07/29/20 11:40 07/30/20 04:10 Arterial Blood pH 7.495 (7.350-7.450) Arterial Blood Partial Pressure CO2 41.3 mmHg (35.0-45.0) Arterial Blood Partial Pressure O2 mmHg (75.0-100.0) Arterial Blood HCO3 31.1 mmol/L (22.0-26.0) H Arterial Blood Oxygen Saturation 96.9 % (95-100) Arterial Blood Base Excess 7.2 (-2-2) H Philip Test Positive White Blood Count 13.5 K/UL (4.8-10.8) H Red Blood Count 3.78 M/UL (4.20-5.40) L Hemoglobin 11.1 G/DL (12.0-16.0) L Hematocrit 33.9 % (37.0-47.0) L Mean Corpuscular Volume 90 FL (80-99) Mean Corpuscular Hemoglobin 29.3 PG (27.0-31.0) Mean Corpuscular Hemoglobin Concent 32.6 G/DL (32.0-36.0) Red Cell Distribution Width 14.3 % (11.6-14.8) Platelet Count 258 K/UL (150-450) Mean Platelet Volume 7.9 FL (6.5-10.1) Neutrophils (%) (Auto) 81.4 % (45.0-75.0) H Lymphocytes (%) (Auto) 7.4 % (20.0-45.0) L Monocytes (%) (Auto) 9.7 % (1.0-10.0) Eosinophils (%) (Auto) 0.4 % (0.0-3.0) Basophils (%) (Auto) 1.1 % (0.0-2.0) Sodium Level 137 MMOL/L (136-145) Potassium Level 3.6 MMOL/L (3.5-5.1) Chloride Level 100 MMOL/L (98-107) Carbon Dioxide Level 32 MMOL/L (21-32) Anion Gap 5 mmol/L (5-15) Blood Urea Nitrogen 26 mg/dL (7-18) H Creatinine 0.6 MG/DL (0.55-1.30) Estimat Glomerular Filtration Rate > 60 mL/min (>60) Glucose Level 137 MG/DL (74-106) H Calcium Level 9.1 MG/DL (8.5-10.1) Objective HEAD AND NECK: Orally intubated with a large neck mass. LUNGS: Coarse rhonchi. CARDIOVASCULAR: Shows regular S1 and S2 with no gallop. ABDOMEN: Soft. EXTREMITIES: No pitting edema. Philip Whalen MD Jul 30, 2020 11:39
[2020-07-30] MEDS: NS w/KCl 20mEq 1000ml 1,000 ML IV SCH (15:42)
--- NOTE | 2020-07-30 18:41 | Pulmonology Progress Note ---
Subjective ROS Limited/Unobtainable: No Interval Events: s/p intubation Constitutional: Reports: no symptoms HEENT: Repors: no symptoms Respiratory: Reports: productive cough Cardiovascular: Reports: no symptoms Allergies: Coded Allergies: No Known Allergies (Unverified , 02/05/19) Objective Last 24 Hour Vital Signs Date Time Temp Pulse Resp B/P (MAP) Pulse Ox O2 Delivery O2 Flow Rate FiO2 07/30/20 18:36 141/57 07/30/20 17:19 104 22 141/57 (85) 98 07/30/20 17:00 104 22 141/57 (85) 98 07/30/20 16:00 Endotracheal Tube 07/30/20 16:00 30 07/30/20 16:00 100 07/30/20 16:00 97 22 128/46 (73) 100 07/30/20 16:00 100 22 30 07/30/20 16:00 100 07/30/20 15:00 94 19 117/50 (72) 99 07/30/20 15:00 96 20 30 07/30/20 14:00 92 19 120/49 (72) 100 07/30/20 13:00 97 21 110/50 (70) 100 07/30/20 12:00 101 24 156/57 (90) 100 07/30/20 12:00 Endotracheal Tube 07/30/20 12:00 110/50 07/30/20 12:00 108 07/30/20 12:00 30 07/30/20 11:02 95 20 30 07/30/20 11:00 98.1 99 22 141/52 (81) 99 07/30/20 10:00 90 20 132/46 (74) 100 07/30/20 09:00 93 20 135/47 (76) 99 07/30/20 08:00 98.3 93 19 132/48 (76) 100 07/30/20 08:00 98 07/30/20 08:00 Endotracheal Tube 07/30/20 08:00 30 07/30/20 07:04 100 21 30 07/30/20 06:45 90 27 99 07/30/20 06:00 88 20 133/61 (85) 100 07/30/20 06:00 Endotracheal Tube 07/30/20 05:35 136/70 07/30/20 05:00 106 23 158/66 (96) 100 07/30/20 04:00 30 07/30/20 04:00 98.2 88 17 136/52 (80) 100 07/30/20 04:00 Endotracheal Tube 07/30/20 03:40 91 07/30/20 03:04 89 22 30 07/30/20 03:00 93 20 127/52 (77) 99 07/30/20 02:00 100 22 132/61 (84) 92 07/30/20 01:00 97 18 116/49 (71) 97 07/30/20 00:25 126/77 07/30/20 00:00 Endotracheal Tube 07/30/20 00:00 98.5 96 19 121/49 (73) 97 07/30/20 00:00 30 07/29/20 23:38 111 07/29/20 23:30 115 26 145/56 (85) 97 07/29/20 23:02 123 26 30 07/29/20 22:30 111 38 132/53 (79) 97 07/29/20 22:16 99.3 07/29/20 22:00 98.7 106 21 147/54 (85) 99 07/29/20 21:00 104 21 144/56 (85) 99 07/29/20 20:00 100.8 105 20 153/61 (91) 98 07/29/20 20:00 30 07/29/20 20:00 Endotracheal Tube 07/29/20 19:46 111 07/29/20 19:00 99.2 105 20 153/61 (91) 98 07/29/20 18:57 117 24 30 Intake and Output 07/29/20 07/30/20 19:00 07:00 Intake Total 960 ml 1478.3333 ml Output Total 440 ml 250 ml Balance 520 ml 1228.3333 ml Free Water 240 ml 30 ml IV Total 728.3333 ml Tube Feeding 720 ml 720 ml Output Urine Total 440 ml 250 ml # Voids 5 # Bowel Movements 6 General Appearance: no acute distress HEENT: normocephalic, other - neck mass+, PEG Respiratory: chest wall non-tender, lungs clear Cardiovascular: normal peripheral pulses, normal rate Abdomen: normal bowel sounds, soft, non tender Extremities: no cyanosis Laboratory Tests 07/30/20 04:10: White Blood Count 13.5H, Red Blood Count 3.78L, Hemoglobin 11.1L, Hematocrit 33.9L, Mean Corpuscular Volume 90, Mean Corpuscular Hemoglobin 29.3, Mean Corpuscular Hemoglobin Concent 32.6, Red Cell Distribution Width 14.3, Platelet Count 258, Mean Platelet Volume 7.9, Neutrophils (%) (Auto) 81.4H, Lymphocytes (%) (Auto) 7.4L, Monocytes (%) (Auto) 9.7, Eosinophils (%) (Auto) 0.4, Basophils (%) (Auto) 1.1, Sodium Level 137, Potassium Level 3.6, Chloride Level 100, Carbon Dioxide Level 32, Anion Gap 5, Blood Urea Nitrogen 26H, Creatinine 0.6, Estimat Glomerular Filtration Rate > 60, Glucose Level 137H, Calcium Level 9.1 Current Medications Medications (Trade) Dose Ordered Sig/Alexei Route PRN Reason Start Time Stop Time Status Last Admin Dose Admin Acetaminophen (Tylenol) 650 mg Q6H PRN GT Temp >100.5 07/29/20 11:15 08/28/20 11:14 07/29/20 21:46 Haloperidol Lactate (Haldol) 2.5 mg Q12H PRN IM Agitation 07/20/20 14:00 09/03/20 13:59 07/29/20 16:30 Heparin Sodium (Porcine) (Heparin 5000 units/ml) 5,000 units EVERY 12 HOURS SUBQ 07/20/20 21:00 09/03/20 20:59 07/30/20 08:20 Hydralazine HCl (Apresoline) 5 mg Q6H PRN IV For High Blood Pressure 07/22/20 19:15 10/20/20 19:14 07/25/20 09:22 Hydralazine HCl (Apresoline) 10 mg Q6HR ORAL 07/20/20 12:00 10/18/20 11:59 07/30/20 18:36 Piperacillin Sod/ Tazobactam Sod 3.375 gm/Sodium Chloride 110 ml @ 27.5 mls/hr EVERY 8 HOURS IVPB 07/29/20 22:00 08/05/20 21:59 07/30/20 14:51 Polyethylene Glycol (Miralax) 17 gm DAILYPRN PRN ORAL Constipation 07/26/20 09:45 08/25/20 09:44 07/28/20 17:43 Potassium Chloride/Sodium Chloride 1,000 ml @ 50 mls/hr Q20H IV 07/29/20 19:00 08/28/20 18:59 07/30/20 15:42 Assessment/Plan Assessment/Plan IMPRESSION: 1. 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 - She will need to be transferred to contracted facility given lack of ENT at our facility. - She needs to have biopsy of this mass. 2. Tracheal deviation. 3. Dysphagia - Pt failed ST eval - s/p PEG - rapid COVID-19 test prior to EGD -negative 4. Possible right upper lobe pneumonia. - s/p broad-spectrum antibiotics. 5. Leukocytosis. 6. Hypokalemia. - K replaced; improving - s/p Dextrose with KCl 7. Failure to thrive. 8. Dementia - Haldol and Ativan for agitation; has underlying dementia 9. Hypertension - on IV hydralazine prn 10. constipation - miralax 11. Respiratory failure - s/p intubated - had sudden AMS and syncope as she was being discharged - extubated previously but had to be re-intubated; likely primary cardiac event - Family updated; needs transfer to higher level of care Santo Proctor MD Jul 30, 2020 18:41
[2020-07-31] VITALS (24 sets, daily range): BP systolic 105–175; BP diastolic 45–73
[2020-07-31] MEDS: HydrALAZINE 10mg Tab ORAL SCH ×5 (00:21→23:59)
[2020-07-31] MEDS: Haloperidol 5mg/ml Inj IM PRN (00:42)
--- NOTE | 2020-07-31 02:08 | Cardiology Report ---
APPROVED REPORT EKG Measurement Heart [id number] <Conclusion> Sinus rhythm with premature atrial complexes Nonspecific ST abnormality Abnormal ECG
[2020-07-31] MEDS: Piperacillin/Tazobactam 3.375 GM in NS 110 ML IVPB SCH ×3 (05:43→21:05)
[2020-07-31] MEDS: Heparin 5000 units/ml inj SUBQ SCH ×2 (08:39→21:05)
--- NOTE | 2020-07-31 09:20 | General Progress Note ---
Subjective ROS Limited/Unobtainable: No Allergies: Coded Allergies: No Known Allergies (Unverified , 02/05/19) Objective Last 24 Hour Vital Signs Date Time Temp Pulse Resp B/P (MAP) Pulse Ox O2 Delivery O2 Flow Rate FiO2 07/31/20 08:00 Endotracheal Tube 07/31/20 08:00 30 07/31/20 08:00 99.5 91 20 140/48 (78) 97 07/31/20 07:00 99.5 97 20 146/50 (82) 97 07/31/20 06:00 101 21 135/55 (81) 98 07/31/20 05:44 122/67 07/31/20 05:00 108 21 122/67 (85) 98 07/31/20 04:00 106 07/31/20 04:00 Endotracheal Tube 07/31/20 04:00 98.0 97 22 110/47 (68) 97 07/31/20 04:00 30 07/31/20 03:36 90 22 30 07/31/20 03:00 98 20 111/51 (71) 98 07/31/20 02:00 100 21 105/54 (71) 96 07/31/20 01:00 110 23 129/56 (80) 95 07/31/20 00:21 136/62 07/31/20 00:00 100 07/31/20 00:00 98.4 115 26 139/62 (87) 92 07/31/20 00:00 Endotracheal Tube 07/31/20 00:00 30 07/30/20 23:15 92 19 30 07/30/20 23:00 97 21 121/56 (77) 98 07/30/20 22:00 98 17 131/53 (79) 98 07/30/20 21:00 93 24 119/53 (75) 99 07/30/20 20:00 Endotracheal Tube 07/30/20 20:00 30 07/30/20 20:00 98.0 86 13 96/75 (82) 98 07/30/20 20:00 97 07/30/20 19:42 90 22 30 07/30/20 19:15 98 22 124/55 (78) 98 07/30/20 19:00 94 21 128/53 (78) 98 07/30/20 19:00 97 17 127/58 (81) 97 07/30/20 18:36 141/57 07/30/20 18:00 97.8 97 17 127/58 (81) 97 07/30/20 17:19 104 22 141/57 (85) 98 07/30/20 17:00 104 22 141/57 (85) 98 07/30/20 16:00 Endotracheal Tube 07/30/20 16:00 30 07/30/20 16:00 100 07/30/20 16:00 97 22 128/46 (73) 100 07/30/20 16:00 100 22 30 07/30/20 16:00 100 07/30/20 15:00 94 19 117/50 (72) 99 07/30/20 15:00 96 20 30 07/30/20 14:00 92 19 120/49 (72) 100 07/30/20 13:00 97 21 110/50 (70) 100 07/30/20 12:00 101 24 156/57 (90) 100 07/30/20 12:00 Endotracheal Tube 07/30/20 12:00 110/50 07/30/20 12:00 108 07/30/20 12:00 30 07/30/20 11:02 95 20 30 07/30/20 11:00 98.1 99 22 141/52 (81) 99 07/30/20 10:00 90 20 132/46 (74) 100 Intake and Output 07/30/20 07/31/20 19:00 07:00 Intake Total 1547.5 ml 1380 ml Output Total 800 ml 400 ml Balance 747.5 ml 980 ml Free Water 250 ml 60 ml IV Total 577.5 ml 600 ml Tube Feeding 720 ml 720 ml Output Urine Total 800 ml 400 ml # Voids 1 # Bowel Movements 1 Height (Feet): 5 Height (Inches): 3.00 Weight (Pounds): 1633 General Appearance: no apparent distress EENT: normal ENT inspection Neck: supple Cardiovascular: normal rate Respiratory/Chest: decreased breath sounds Abdomen: normal bowel sounds, non tender, soft Extremities: non-tender Assessment/Plan Assessment/Plan: 1. Large neck mass, 2. Tracheal deviation. 3. Difficulty swallowing. - ST eval pending 4. Possible right upper lobe pneumonia. 5. Leukocytosis. 6. Failure to thrive. 7. Dysphagia. - ST eval pending 8. Dementia 9. Hypertension 10 resp failure on Vent s/p PEG GTF HL iv monitor for residuals fu pulAndrea Moralez MD Jul 31, 2020 09:20
[2020-07-31] MEDS: NS w/KCl 20mEq 1000ml 1,000 ML IV SCH (11:00)
--- NOTE | 2020-07-31 14:54 | Pulmonology Progress Note ---
Subjective ROS Limited/Unobtainable: No Interval Events: s/p intubation Constitutional: Reports: no symptoms HEENT: Repors: no symptoms Respiratory: Reports: productive cough Cardiovascular: Reports: no symptoms Allergies: Coded Allergies: No Known Allergies (Unverified , 02/05/19) Objective Last 24 Hour Vital Signs Date Time Temp Pulse Resp B/P (MAP) Pulse Ox O2 Delivery O2 Flow Rate FiO2 07/31/20 14:00 96 22 140/49 (79) 99 07/31/20 13:11 115 23 30 30 07/31/20 13:00 99.2 104 22 152/54 (86) 98 07/31/20 12:00 105 24 175/63 (100) 100 07/31/20 12:00 Endotracheal Tube 07/31/20 12:00 139/45 07/31/20 12:00 30 07/31/20 12:00 98 07/31/20 11:00 96 19 149/45 (79) 97 07/31/20 10:00 110 29 147/47 (80) 98 07/31/20 09:00 93 20 145/47 (79) 99 07/31/20 09:00 100 07/31/20 08:00 Endotracheal Tube 07/31/20 08:00 95 07/31/20 08:00 30 07/31/20 08:00 99.5 91 20 140/48 (78) 97 07/31/20 07:58 103 25 30 07/31/20 07:00 99.5 97 20 146/50 (82) 97 07/31/20 06:00 101 21 135/55 (81) 98 07/31/20 05:44 122/67 07/31/20 05:00 108 21 122/67 (85) 98 07/31/20 04:00 106 07/31/20 04:00 Endotracheal Tube 07/31/20 04:00 98.0 97 22 110/47 (68) 97 07/31/20 04:00 30 07/31/20 03:36 90 22 30 07/31/20 03:00 98 20 111/51 (71) 98 07/31/20 02:00 100 21 105/54 (71) 96 07/31/20 01:00 110 23 129/56 (80) 95 07/31/20 00:21 136/62 07/31/20 00:00 100 07/31/20 00:00 98.4 115 26 139/62 (87) 92 07/31/20 00:00 Endotracheal Tube 07/31/20 00:00 30 07/30/20 23:15 92 19 30 07/30/20 23:00 97 21 121/56 (77) 98 07/30/20 22:00 98 17 131/53 (79) 98 07/30/20 21:00 93 24 119/53 (75) 99 07/30/20 20:00 Endotracheal Tube 07/30/20 20:00 30 07/30/20 20:00 98.0 86 13 96/75 (82) 98 07/30/20 20:00 97 07/30/20 19:42 90 22 30 07/30/20 19:15 98 22 124/55 (78) 98 07/30/20 19:00 94 21 128/53 (78) 98 07/30/20 19:00 97 17 127/58 (81) 97 07/30/20 18:36 141/57 07/30/20 18:00 97.8 97 17 127/58 (81) 97 07/30/20 17:19 104 22 141/57 (85) 98 07/30/20 17:00 104 22 141/57 (85) 98 07/30/20 16:00 Endotracheal Tube 07/30/20 16:00 30 07/30/20 16:00 100 07/30/20 16:00 97 22 128/46 (73) 100 07/30/20 16:00 100 22 30 07/30/20 16:00 100 07/30/20 15:00 94 19 117/50 (72) 99 07/30/20 15:00 96 20 30 Intake and Output 07/30/20 07/31/20 19:00 07:00 Intake Total 1547.5 ml 1430 ml Output Total 800 ml 400 ml Balance 747.5 ml 1030 ml Free Water 250 ml 60 ml IV Total 577.5 ml 650 ml Tube Feeding 720 ml 720 ml Output Urine Total 800 ml 400 ml # Voids 1 # Bowel Movements 1 General Appearance: no acute distress HEENT: normocephalic, other - neck mass+, PEG Respiratory: chest wall non-tender, lungs clear Cardiovascular: normal peripheral pulses, normal rate Abdomen: normal bowel sounds, soft, non tender Extremities: no cyanosis Current Medications Medications (Trade) Dose Ordered Sig/Alexei Route PRN Reason Start Time Stop Time Status Last Admin Dose Admin Acetaminophen (Tylenol) 650 mg Q6H PRN GT Temp >100.5 07/29/20 11:15 08/28/20 11:14 07/29/20 21:46 Haloperidol Lactate (Haldol) 2.5 mg Q12H PRN IM Agitation 07/20/20 14:00 09/03/20 13:59 07/31/20 00:42 Heparin Sodium (Porcine) (Heparin 5000 units/ml) 5,000 units EVERY 12 HOURS SUBQ 07/20/20 21:00 09/03/20 20:59 07/31/20 08:39 Hydralazine HCl (Apresoline) 5 mg Q6H PRN IV For High Blood Pressure 07/22/20 19:15 10/20/20 19:14 07/25/20 09:22 Hydralazine HCl (Apresoline) 10 mg Q6HR ORAL 07/20/20 12:00 10/18/20 11:59 07/31/20 12:00 Piperacillin Sod/ Tazobactam Sod 3.375 gm/Sodium Chloride 110 ml @ 27.5 mls/hr EVERY 8 HOURS IVPB 07/29/20 22:00 08/05/20 21:59 07/31/20 14:13 Polyethylene Glycol (Miralax) 17 gm DAILYPRN PRN ORAL Constipation 07/26/20 09:45 08/25/20 09:44 07/28/20 17:43 Potassium Chloride/Sodium Chloride 1,000 ml @ 50 mls/hr Q20H IV 07/29/20 19:00 08/28/20 18:59 07/30/20 15:42 Assessment/Plan Assessment/Plan IMPRESSION: 1. 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 - She will need to be transferred to contracted facility given lack of ENT at our facility. - She needs to have biopsy of this mass. 2. Tracheal deviation. 3. Dysphagia - Pt failed ST eval - s/p PEG - rapid COVID-19 test prior to EGD -negative 4. Possible right upper lobe pneumonia. - s/p broad-spectrum antibiotics. 5. Leukocytosis. 6. Hypokalemia. - K replaced; improving - s/p Dextrose with KCl 7. Failure to thrive. 8. Dementia - Haldol and Ativan for agitation; has underlying dementia 9. Hypertension - on IV hydralazine prn 10. constipation - miralax 11. Respiratory failure - s/p intubated - had sudden AMS and syncope as she was being discharged - extubated previously but had to be re-intubated; likely primary cardiac event - Family updated; needs transfer to higher level of care Santo Proctor MD Jul 31, 2020 14:54
--- NOTE | 2020-07-31 16:07 | Cardiac Electrophysiology PN ---
Assessment/Plan Assessment/Plan 1. Status post bradycardic arrest, likely due to sick sinus syndrome in this 89-year-old lady. The patient did not have any respiratory issue at that time and was extubated earlier per staff. We will watch while she is intubated and monitor her heart rate. Obviously, she would be off of any sinus node or AV fabiola affecting agent. EF 60% and ruled out for PA. May also be due to Right neck mass pressure on the carotid artery ( Like Carotid sinus hypersensitivity) 2. Hypertension, on hydralazine 10 mg every 6 hours and p.r.n. IV hydralazine. 3. Respiratory failure, intubated 4. 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 May need to be transferred to tertiary facility and mass biopsy. 5. Dysphagia, status post PEG placement with negative rapid COVID test 6. Right upper lobe pneumonia, on IV antibiotic. 7. Dementia. On Ativan for agitation. SHAGGY RN Subjective Subjective On the Vent with 30% Fio2 and PEEP 5 Echo EF 60% Failed weaning Objective Last 24 Hour Vital Signs Date Time Temp Pulse Resp B/P (MAP) Pulse Ox O2 Delivery O2 Flow Rate FiO2 07/31/20 15:53 101.0 90 14 133/49 (77) 99 07/31/20 15:41 30 07/31/20 15:39 Endotracheal Tube 07/31/20 14:59 98 20 135/62 (86) 97 07/31/20 14:01 30 07/31/20 14:00 96 22 140/49 (79) 99 07/31/20 13:11 115 23 30 30 07/31/20 13:00 99.2 104 22 152/54 (86) 98 07/31/20 12:00 105 24 175/63 (100) 100 07/31/20 12:00 Endotracheal Tube 07/31/20 12:00 139/45 07/31/20 12:00 30 07/31/20 12:00 98 07/31/20 11:00 96 19 149/45 (79) 97 07/31/20 10:00 110 29 147/47 (80) 98 07/31/20 09:00 93 20 145/47 (79) 99 07/31/20 09:00 100 07/31/20 08:00 Endotracheal Tube 07/31/20 08:00 95 07/31/20 08:00 30 07/31/20 08:00 99.5 91 20 140/48 (78) 97 07/31/20 07:58 103 25 30 07/31/20 07:00 99.5 97 20 146/50 (82) 97 07/31/20 06:00 101 21 135/55 (81) 98 07/31/20 05:44 122/67 07/31/20 05:00 108 21 122/67 (85) 98 07/31/20 04:00 106 07/31/20 04:00 Endotracheal Tube 07/31/20 04:00 98.0 97 22 110/47 (68) 97 07/31/20 04:00 30 07/31/20 03:36 90 22 30 07/31/20 03:00 98 20 111/51 (71) 98 07/31/20 02:00 100 21 105/54 (71) 96 07/31/20 01:00 110 23 129/56 (80) 95 07/31/20 00:21 136/62 07/31/20 00:00 100 07/31/20 00:00 98.4 115 26 139/62 (87) 92 07/31/20 00:00 Endotracheal Tube 07/31/20 00:00 30 07/30/20 23:15 92 19 30 07/30/20 23:00 97 21 121/56 (77) 98 07/30/20 22:00 98 17 131/53 (79) 98 07/30/20 21:00 93 24 119/53 (75) 99 07/30/20 20:00 Endotracheal Tube 07/30/20 20:00 30 07/30/20 20:00 98.0 86 13 96/75 (82) 98 07/30/20 20:00 97 07/30/20 19:42 90 22 30 07/30/20 19:15 98 22 124/55 (78) 98 07/30/20 19:00 94 21 128/53 (78) 98 07/30/20 19:00 97 17 127/58 (81) 97 07/30/20 18:36 141/57 07/30/20 18:00 97.8 97 17 127/58 (81) 97 07/30/20 17:19 104 22 141/57 (85) 98 07/30/20 17:00 104 22 141/57 (85) 98 Intake and Output 07/30/20 07/31/20 19:00 07:00 Intake Total 1547.5 ml 1430 ml Output Total 800 ml 400 ml Balance 747.5 ml 1030 ml Free Water 250 ml 60 ml IV Total 577.5 ml 650 ml Tube Feeding 720 ml 720 ml Output Urine Total 800 ml 400 ml # Voids 1 # Bowel Movements 1 Objective HEAD AND NECK: Orally intubated with a large neck mass. LUNGS: Coarse rhonchi. CARDIOVASCULAR: Shows regular S1 and S2 with no gallop. ABDOMEN: Soft. EXTREMITIES: No pitting edema. Philip Whalen MD Jul 31, 2020 16:07
--- NOTE | 2020-07-31 19:28 | Cardiology Report ---
APPROVED REPORT EXAM: Two-dimensional and M-mode echocardiogram with Doppler and color Doppler. INDICATION Bradycardia M-Mode DIMENSIONS IVSd0.9 (0.7-1.1cm)Left Atrium (MM)3.4 (1.6-4.0cm) LVDd5.4 (3.5-5.6cm)Aortic Root2.9 (2.0-3.7cm) PWd0.9 (0.7-1.1cm)Aortic Cusp Exc.1.5 (1.5-2.0cm) IVSs1.7 cm LVDs3.7 (2.5-4.0cm) PWs1.3 cm <Conclusion> Technically difficult study due to pt's resistence, ventilator, and all measurments are done at the end. Normal left ventricular chamber size, systolic function and wall motion to extent visualized. Left ventricular ejection fraction estimated to be 60 %. Mild left ventricular hypertrophy. Small, Moderate, Large hemodynamically insignificant pericardial effusion. All other cardiac chamber sizes are within normal limits. Focal aortic valve sclerosis with adequate cusp excursion. Thickened mitral valve leaflets with normal excursion. Mitral annulus and mild aortic root calcification. Pulmonic valve not well visualized. Normal tricuspid valve structure. IVC at normal size with physiologic collapse. A color flow and spectral Doppler study was performed and revealed: Trace aortic regurgitation. Trace mitral regurgitation. Mitral diastolic velocities suggest reduced left ventricular relaxation c/w mild LV diastolic dysfunction (Grade I ). Mild to moderate tricuspid regurgitation. Tricuspid systolic velocities suggests peak right ventricular systolic pressure of 49 mmHg consistent with moderate pulmonary hypertension. Pulmonic regurgitation present.
--- NOTE | 2020-07-31 19:33 | Cardiology Report ---
APPROVED REPORT EKG Measurement Heart [id number] <Conclusion> Normal sinus rhythm Normal ECG
[2020-08-01] VITALS (19 sets, daily range): BP systolic 118–179; BP diastolic 46–98
[2020-08-01] MEDS: Piperacillin/Tazobactam 3.375 GM in NS 110 ML IVPB SCH ×2 (05:25→14:06)
[2020-08-01] MEDS: HydrALAZINE 10mg Tab ORAL SCH ×3 (05:25→18:00)
[2020-08-01] MEDS: NS w/KCl 20mEq 1000ml 1,000 ML IV SCH (06:03)
[2020-08-01 06:42] LABS: BASOPHILS % (AUTO) 0.7 % (0.0-2.0); EOSINOPHILS % (AUTO) 1.2 % (0.0-3.0); HEMOGLOBIN 11.1 G/DL (12.0-16.0); LYMPHOCYTES % (AUTO) 17.7 % (20.0-45.0); MEAN CORPUSCULAR VOLUME 90 FL (80-99); MONOCYTES % (AUTO) 7.6 % (1.0-10.0); NEUTROPHILS % (AUTO) 72.8 % (45.0-75.0); PLATELET COUNT 313 K/UL (150-450); RED BLOOD COUNT 3.77 M/UL (4.20-5.40); RED CELL DISTRIBUTION WIDTH 14.4 % (11.6-14.8); WHITE BLOOD COUNT 14.5 K/UL (4.8-10.8)
[2020-08-01 06:48] LABS: ANION GAP 3 mmol/L (5-15); BLOOD UREA NITROGEN 23 mg/dL (7-18); CALCIUM 9.5 MG/DL (8.5-10.1); CARBON DIOXIDE 34 MMOL/L (21-32); CHLORIDE 105 MMOL/L (98-107); CREATININE 0.7 MG/DL (0.55-1.30); POTASSIUM 3.5 MMOL/L (3.5-5.1); SODIUM 142 MMOL/L (136-145)
[2020-08-01] MEDS: Heparin 5000 units/ml inj SUBQ SCH (09:42)
--- NOTE | 2020-08-01 09:56 | Pulmonology Progress Note ---
Subjective ROS Limited/Unobtainable: No Interval Events: s/p intubation; none new reported Constitutional: Reports: no symptoms HEENT: Repors: no symptoms Respiratory: Reports: productive cough Cardiovascular: Reports: no symptoms Allergies: Coded Allergies: No Known Allergies (Unverified , 02/05/19) Objective Last 24 Hour Vital Signs Date Time Temp Pulse Resp B/P (MAP) Pulse Ox O2 Delivery O2 Flow Rate FiO2 08/01/20 09:00 82 18 134/50 (78) 98 08/01/20 08:00 95 08/01/20 08:00 30 08/01/20 08:00 98.6 90 21 161/61 (94) 99 08/01/20 08:00 Endotracheal Tube 08/01/20 07:59 99 08/01/20 07:55 30 08/01/20 07:06 98 27 30 08/01/20 07:00 89 19 149/80 (103) 97 08/01/20 06:00 84 18 142/67 (92) 97 08/01/20 05:25 166/75 08/01/20 05:00 78 20 118/59 (78) 98 08/01/20 04:00 Endotracheal Tube 08/01/20 04:00 30 08/01/20 04:00 93 08/01/20 04:00 98.7 84 18 135/47 (76) 99 08/01/20 03:00 93 21 140/66 (90) 100 08/01/20 02:00 78 18 120/48 (72) 100 08/01/20 01:27 83 20 30 30 08/01/20 01:00 79 17 124/53 (76) 97 08/01/20 00:00 98.7 84 18 135/47 (76) 99 08/01/20 00:00 Endotracheal Tube 08/01/20 00:00 84 18 135/47 (76) 99 07/31/20 23:59 153/57 07/31/20 23:00 84 18 128/50 (76) 98 07/31/20 22:00 82 13 124/48 (73) 100 07/31/20 21:00 83 17 115/47 (69) 100 07/31/20 20:00 Endotracheal Tube 07/31/20 20:00 30 07/31/20 20:00 107 07/31/20 20:00 99.0 101 23 150/73 (98) 99 07/31/20 19:06 107 22 98 Mechanical Ventilator 30 07/31/20 19:04 107 22 30 30 07/31/20 19:00 90 19 130/53 (78) 98 07/31/20 18:00 21 20 164/58 (93) 97 07/31/20 17:27 142/56 07/31/20 17:00 99.8 90 14 142/56 (84) 98 07/31/20 16:00 88 07/31/20 15:53 101.0 90 14 133/49 (77) 99 07/31/20 15:41 30 07/31/20 15:39 Endotracheal Tube 07/31/20 14:59 98 20 135/62 (86) 97 07/31/20 14:01 30 07/31/20 14:00 96 22 140/49 (79) 99 07/31/20 13:11 115 23 30 30 07/31/20 13:00 99.2 104 22 152/54 (86) 98 07/31/20 12:00 105 24 175/63 (100) 100 07/31/20 12:00 Endotracheal Tube 07/31/20 12:00 139/45 07/31/20 12:00 30 07/31/20 12:00 98 07/31/20 11:00 96 19 149/45 (79) 97 07/31/20 10:00 110 29 147/47 (80) 98 Intake and Output 07/31/20 08/01/20 19:00 07:00 Intake Total 1560 ml 1025.0 ml Output Total 250 ml 70 ml Balance 1310 ml 955.0 ml Free Water 240 ml 100 ml IV Total 600 ml 205.0 ml Tube Feeding 720 ml 720 ml Output Urine Total 250 ml 70 ml # Voids 2 # Bowel Movements 1 General Appearance: no acute distress HEENT: normocephalic, other - neck mass+, PEG Respiratory: chest wall non-tender, lungs clear Cardiovascular: normal peripheral pulses, normal rate Abdomen: normal bowel sounds, soft, non tender Extremities: no cyanosis Laboratory Tests 08/01/20 03:30: White Blood Count 14.5H, Red Blood Count 3.77L, Hemoglobin 11.1L, Hematocrit 34.0L, Mean Corpuscular Volume 90, Mean Corpuscular Hemoglobin 29.5, Mean Corpuscular Hemoglobin Concent 32.7, Red Cell Distribution Width 14.4, Platelet Count 313, Mean Platelet Volume 7.0, Neutrophils (%) (Auto) 72.8, Lymphocytes (%) (Auto) 17.7L, Monocytes (%) (Auto) 7.6, Eosinophils (%) (Auto) 1.2, Basophils (%) (Auto) 0.7, Sodium Level 142, Potassium Level 3.5, Chloride Level 105, Carbon Dioxide Level 34H, Anion Gap 3L, Blood Urea Nitrogen 23H, Creatinine 0.7, Estimat Glomerular Filtration Rate > 60, Glucose Level 109H, Calcium Level 9.5 Current Medications Medications (Trade) Dose Ordered Sig/Alexei Route PRN Reason Start Time Stop Time Status Last Admin Dose Admin Acetaminophen (Tylenol) 650 mg Q6H PRN GT Temp >100.5 07/29/20 11:15 08/28/20 11:14 07/29/20 21:46 Haloperidol Lactate (Haldol) 2.5 mg Q12H PRN IM Agitation 07/20/20 14:00 09/03/20 13:59 07/31/20 00:42 Heparin Sodium (Porcine) (Heparin 5000 units/ml) 5,000 units EVERY 12 HOURS SUBQ 07/20/20 21:00 09/03/20 20:59 08/01/20 09:42 Hydralazine HCl (Apresoline) 5 mg Q6H PRN IV For High Blood Pressure 07/22/20 19:15 10/20/20 19:14 07/25/20 09:22 Hydralazine HCl (Apresoline) 10 mg Q6HR ORAL 07/20/20 12:00 10/18/20 11:59 08/01/20 05:25 Piperacillin Sod/ Tazobactam Sod 3.375 gm/Sodium Chloride 110 ml @ 27.5 mls/hr EVERY 8 HOURS IVPB 07/29/20 22:00 08/05/20 21:59 08/01/20 05:25 Polyethylene Glycol (Miralax) 17 gm DAILYPRN PRN ORAL Constipation 07/26/20 09:45 08/25/20 09:44 07/28/20 17:43 Potassium Chloride/Sodium Chloride 1,000 ml @ 50 mls/hr Q20H IV 07/29/20 19:00 08/28/20 18:59 08/01/20 06:03 Assessment/Plan Assessment/Plan Discussed with insurance company. We will continue to IMPRESSION: 1. 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 - She will need to be transferred to contracted facility given lack of ENT at our facility. - She needs to have biopsy of this mass. 2. Tracheal deviation. 3. Dysphagia - Pt failed ST eval - s/p PEG - rapid COVID-19 test prior to EGD -negative 4. Possible right upper lobe pneumonia. - s/p broad-spectrum antibiotics. 5. Leukocytosis. 6. Hypokalemia. - K replaced; improving - s/p Dextrose with KCl 7. Failure to thrive. 8. Dementia - Haldol and Ativan for agitation; has underlying dementia 9. Hypertension - on IV hydralazine prn 10. constipation - miralax 11. Respiratory failure - s/p intubated - had sudden AMS and syncope as she was being discharged - extubated previously but had to be re-intubated; likely primary cardiac event - Family updated; needs transfer to higher level of care Discussed with insurance company. Will continue to make efforts to transfer to higher level of care. Santo Proctor MD Aug 01, 2020 09:56
--- NOTE | 2020-08-01 11:55 | Diagnostic Imaging Report ---
Indication: Shortness of breath Technique: One view of the chest Comparison: 07/29/2020 Findings: Pleural fluid and/or atelectasis at the left lung base is again demonstrated. There is some retrocardiac consolidation, may be slightly increased. Stable satisfactory position of endotracheal tube. Right lung pleural space remain clear. Impression: Slightly increased retrocardiac consolidation. Stable left basilar pleural fluid and/or atelectasis
--- NOTE | 2020-08-01 14:09 | General Progress Note ---
Subjective ROS Limited/Unobtainable: No Allergies: Coded Allergies: No Known Allergies (Unverified , 02/05/19) Objective Last 24 Hour Vital Signs Date Time Temp Pulse Resp B/P (MAP) Pulse Ox O2 Delivery O2 Flow Rate FiO2 08/01/20 12:00 Endotracheal Tube 08/01/20 12:00 91 08/01/20 12:00 93 22 149/59 (89) 98 08/01/20 12:00 179/66 08/01/20 12:00 30 08/01/20 11:00 93 23 156/59 (91) 98 08/01/20 10:00 85 23 130/46 (74) 97 08/01/20 09:00 82 18 134/50 (78) 98 08/01/20 08:00 95 08/01/20 08:00 30 08/01/20 08:00 98.6 90 21 161/61 (94) 99 08/01/20 08:00 Endotracheal Tube 08/01/20 07:59 99 08/01/20 07:55 30 08/01/20 07:06 98 27 30 08/01/20 07:00 89 19 149/80 (103) 97 08/01/20 06:00 84 18 142/67 (92) 97 08/01/20 05:25 166/75 08/01/20 05:00 78 20 118/59 (78) 98 08/01/20 04:00 Endotracheal Tube 08/01/20 04:00 30 08/01/20 04:00 93 08/01/20 04:00 98.7 84 18 135/47 (76) 99 08/01/20 03:00 93 21 140/66 (90) 100 08/01/20 02:00 78 18 120/48 (72) 100 08/01/20 01:27 83 20 30 30 08/01/20 01:00 79 17 124/53 (76) 97 08/01/20 00:00 98.7 84 18 135/47 (76) 99 08/01/20 00:00 Endotracheal Tube 08/01/20 00:00 84 18 135/47 (76) 99 07/31/20 23:59 153/57 07/31/20 23:00 84 18 128/50 (76) 98 07/31/20 22:00 82 13 124/48 (73) 100 07/31/20 21:00 83 17 115/47 (69) 100 07/31/20 20:00 Endotracheal Tube 07/31/20 20:00 30 07/31/20 20:00 107 07/31/20 20:00 99.0 101 23 150/73 (98) 99 07/31/20 19:06 107 22 98 Mechanical Ventilator 30 07/31/20 19:04 107 22 30 30 07/31/20 19:00 90 19 130/53 (78) 98 07/31/20 18:00 21 20 164/58 (93) 97 07/31/20 17:27 142/56 07/31/20 17:00 99.8 90 14 142/56 (84) 98 07/31/20 16:00 88 07/31/20 15:53 101.0 90 14 133/49 (77) 99 07/31/20 15:41 30 07/31/20 15:39 Endotracheal Tube 07/31/20 14:59 98 20 135/62 (86) 97 Intake and Output 07/31/20 08/01/20 19:00 07:00 Intake Total 1560 ml 1025.0 ml Output Total 250 ml 70 ml Balance 1310 ml 955.0 ml Free Water 240 ml 100 ml IV Total 600 ml 205.0 ml Tube Feeding 720 ml 720 ml Output Urine Total 250 ml 70 ml # Voids 2 # Bowel Movements 1 Laboratory Tests 08/01/20 03:30: White Blood Count 14.5H, Red Blood Count 3.77L, Hemoglobin 11.1L, Hematocrit 34.0L, Mean Corpuscular Volume 90, Mean Corpuscular Hemoglobin 29.5, Mean Corpuscular Hemoglobin Concent 32.7, Red Cell Distribution Width 14.4, Platelet Count 313, Mean Platelet Volume 7.0, Neutrophils (%) (Auto) 72.8, Lymphocytes (%) (Auto) 17.7L, Monocytes (%) (Auto) 7.6, Eosinophils (%) (Auto) 1.2, Basophils (%) (Auto) 0.7, Sodium Level 142, Potassium Level 3.5, Chloride Level 105, Carbon Dioxide Level 34H, Anion Gap 3L, Blood Urea Nitrogen 23H, Creatinine 0.7, Estimat Glomerular Filtration Rate > 60, Glucose Level 109H, Calcium Level 9.5 08/01/20 11:46: Arterial Blood pH 7.465H, Arterial Blood Partial Pressure CO2 44.8, Arterial Blood Partial Pressure O2 93.4, Arterial Blood HCO3 31.5H, Arterial Blood Oxygen Saturation 97.0, Arterial Blood Base Excess 7.0H, Philip Test Positive Height (Feet): 5 Height (Inches): 3.00 Weight (Pounds): 1633 General Appearance: no apparent distress EENT: normal ENT inspection Neck: supple Cardiovascular: normal rate Respiratory/Chest: decreased breath sounds Abdomen: normal bowel sounds, non tender, soft Extremities: non-tender Assessment/Plan Assessment/Plan: 1. Large neck mass, 2. Tracheal deviation. 3. Difficulty swallowing. - ST eval pending 4. Possible right upper lobe pneumonia. 5. Leukocytosis. 6. Failure to thrive. 7. Dysphagia. - ST eval pending 8. Dementia 9. Hypertension 10 resp failure on Vent s/p PEG GTF HL iv monitor for residuals fu pulAndrea Moralez MD Aug 01, 2020 14:09
--- NOTE | 2020-08-01 17:00 | Cardiac Electrophysiology PN ---
Assessment/Plan Assessment/Plan 1. Status post bradycardic arrest, likely due to sick sinus syndrome in this 89-year-old lady. The patient did not have any respiratory issue at that time and was extubated earlier per staff. We will watch while she is intubated and monitor her heart rate. Obviously, she would be off of any sinus node or AV fabiola affecting agent. EF 60% and ruled out for TX. May also be due to Right neck mass pressure on the carotid artery ( Like Carotid sinus hypersensitivity) 2. Hypertension, on hydralazine 10 mg every 6 hours and p.r.n. IV hydralazine. 3. Respiratory failure, intubated. Weaning in progress 4. 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 May need to be transferred to tertiary facility and mass biopsy. 5. Dysphagia, status post PEG placement with negative rapid COVID test 6. Right upper lobe pneumonia, on IV antibiotic. 7. Dementia. On Ativan for agitation. SHAGGY RN Subjective Subjective On the Vent with 40% Fio2 and PEEP 5 Echo EF 60% Tolerated weaning fr 5 hours Objective Last 24 Hour Vital Signs Date Time Temp Pulse Resp B/P (MAP) Pulse Ox O2 Delivery O2 Flow Rate FiO2 08/01/20 16:00 Endotracheal Tube 08/01/20 16:00 73 19 141/47 (78) 100 08/01/20 16:00 75 08/01/20 15:00 84 20 166/61 (96) 100 08/01/20 14:00 30 08/01/20 14:00 106 23 179/93 (121) 89 08/01/20 13:00 98.3 110 26 179/66 (103) 98 08/01/20 12:00 Endotracheal Tube 08/01/20 12:00 91 08/01/20 12:00 93 22 149/59 (89) 98 08/01/20 12:00 179/66 08/01/20 12:00 30 08/01/20 11:00 93 23 156/59 (91) 98 08/01/20 10:00 85 23 130/46 (74) 97 08/01/20 09:00 82 18 134/50 (78) 98 08/01/20 08:00 95 08/01/20 08:00 30 08/01/20 08:00 98.6 90 21 161/61 (94) 99 08/01/20 08:00 Endotracheal Tube 08/01/20 07:59 99 08/01/20 07:55 30 08/01/20 07:06 98 27 30 08/01/20 07:00 89 19 149/80 (103) 97 08/01/20 06:00 84 18 142/67 (92) 97 08/01/20 05:25 166/75 08/01/20 05:00 78 20 118/59 (78) 98 08/01/20 04:00 Endotracheal Tube 08/01/20 04:00 30 08/01/20 04:00 93 08/01/20 04:00 98.7 84 18 135/47 (76) 99 08/01/20 03:00 93 21 140/66 (90) 100 08/01/20 02:00 78 18 120/48 (72) 100 08/01/20 01:27 83 20 30 30 08/01/20 01:00 79 17 124/53 (76) 97 08/01/20 00:00 98.7 84 18 135/47 (76) 99 08/01/20 00:00 Endotracheal Tube 08/01/20 00:00 84 18 135/47 (76) 99 07/31/20 23:59 153/57 07/31/20 23:00 84 18 128/50 (76) 98 07/31/20 22:00 82 13 124/48 (73) 100 07/31/20 21:00 83 17 115/47 (69) 100 07/31/20 20:00 Endotracheal Tube 07/31/20 20:00 30 07/31/20 20:00 107 07/31/20 20:00 99.0 101 23 150/73 (98) 99 07/31/20 19:06 107 22 98 Mechanical Ventilator 30 07/31/20 19:04 107 22 30 30 07/31/20 19:00 90 19 130/53 (78) 98 07/31/20 18:00 21 20 164/58 (93) 97 07/31/20 17:27 142/56 07/31/20 17:00 99.8 90 14 142/56 (84) 98 Intake and Output 07/31/20 08/01/20 19:00 07:00 Intake Total 1560 ml 1025.0 ml Output Total 250 ml 70 ml Balance 1310 ml 955.0 ml Free Water 240 ml 100 ml IV Total 600 ml 205.0 ml Tube Feeding 720 ml 720 ml Output Urine Total 250 ml 70 ml # Voids 2 # Bowel Movements 1 Laboratory Tests Test 08/01/20 03:30 08/01/20 11:46 White Blood Count 14.5 K/UL (4.8-10.8) H Red Blood Count 3.77 M/UL (4.20-5.40) L Hemoglobin 11.1 G/DL (12.0-16.0) L Hematocrit 34.0 % (37.0-47.0) L Mean Corpuscular Volume 90 FL (80-99) Mean Corpuscular Hemoglobin 29.5 PG (27.0-31.0) Mean Corpuscular Hemoglobin Concent 32.7 G/DL (32.0-36.0) Red Cell Distribution Width 14.4 % (11.6-14.8) Platelet Count 313 K/UL (150-450) Mean Platelet Volume 7.0 FL (6.5-10.1) Neutrophils (%) (Auto) 72.8 % (45.0-75.0) Lymphocytes (%) (Auto) 17.7 % (20.0-45.0) L Monocytes (%) (Auto) 7.6 % (1.0-10.0) Eosinophils (%) (Auto) 1.2 % (0.0-3.0) Basophils (%) (Auto) 0.7 % (0.0-2.0) Sodium Level 142 MMOL/L (136-145) Potassium Level 3.5 MMOL/L (3.5-5.1) Chloride Level 105 MMOL/L (98-107) Carbon Dioxide Level 34 MMOL/L (21-32) H Anion Gap 3 mmol/L (5-15) L Blood Urea Nitrogen 23 mg/dL (7-18) H Creatinine 0.7 MG/DL (0.55-1.30) Estimat Glomerular Filtration Rate > 60 mL/min (>60) Glucose Level 109 MG/DL (74-106) H Calcium Level 9.5 MG/DL (8.5-10.1) Arterial Blood pH 7.465 (7.350-7.450) Arterial Blood Partial Pressure CO2 44.8 mmHg (35.0-45.0) Arterial Blood Partial Pressure O2 93.4 mmHg (75.0-100.0) Arterial Blood HCO3 31.5 mmol/L (22.0-26.0) H Arterial Blood Oxygen Saturation 97.0 % (95-100) Arterial Blood Base Excess 7.0 (-2-2) H Philip Test Positive Objective HEAD AND NECK: Orally intubated with a large neck mass. LUNGS: Coarse rhonchi. CARDIOVASCULAR: Shows regular S1 and S2 with no gallop. ABDOMEN: Soft. EXTREMITIES: No pitting edema. Philip Whalen MD Aug 01, 2020 17:00
--- NOTE | 2020-08-05 16:30 | Discharge Summary ---
Discharge Summary Discharge Summary _ Date of admission: 07/19/2020 Date of discharge: 08/01/[address] Proctor History of Present Illness and Brief Hospital Course Ms. Claudio is a 89-year-old female with a history of Alzheimer's dementia who presented to the ED for evaluation of hoarseness and dysphagia x3 days. On physical exam, she was found to have a right-sided large neck mass. Suction was provided at bedside, given pooling of oral secretions. Haldol and Ativan were given for agitation. She was started on labetalol for tachycardia and hypertension. She was admitted for further management. A chest x-ray revealed mass-like consolidation in the right lung apex which was suspicious for underlying malignancy. A follow-up CT of the chest, and abdomen/pelvis revealed partially calcified large heterogeneous low-density mass arising from the left thyroid gland protruding into the superior mediastinum, which explained her rightward deviated trachea and esophagus along with mildly narrowed canal. A 2 mm micronodule was found in the right upper lobe. Patient was given broad-spectrum antibiotics for a possible right upper lobe pneumonia. CT of the neck demonstrated a large partially calcified mostly low-density heterogeneous mass measuring approximately 7.8 x 5.4 cm, which appeared to be arising from the left thyroid gland. Patient did not pass swallow evaluation and required PEG placement. It was determined that she needed to be transferred to tertiary facility for biopsy of the neck mass, given lack of ENT at our facility. On 07/26/2020, patient was planned to be discharged home with home health and follow-up with ENT provider as an outpatient. According to case management, home health was scheduled to start service on 07/29/2020. Family was to come to the hospital for transport. Patient had sudden altered mental status and syncope as she was being discharged. She was immediately transferred to ICU and was intubated. Her venous duplex ultrasound of lower extremities was negative for DVT despite elevated D-dimer. The next day patient was observed to be stable on ventilator. Proper precautions were observed in preparation for extubation. She was extubated and was monitored in ICU. Unfortunately, she desaturated again and was reintubated. Given her bradycardic arrest, she was evaluated by technician plant and maintenance. This episode was likely due to sick sinus syndrome. Any sinus node or AV fabiola affecting agent was avoided on this patient. Her left ventricular ejection fraction was estimated to be 60% according to 2D echocardiogram. Her large right neck mass pressure on the carotid artery was also considered to be possible contributing factor to the bradycardic arrest. On 08/01/2020, patient was transferred to [facility] in [facility] in stable condition. She was still intubated with ETT size of 7.5, 23 cm at the lip, with vent settings of AC 16, TV 400, FiO2 30%, and PEEP 5. G-tube was in place and flushed. Feeding was on hold during transfer. Consultants: Cardiology Dr. Whalen Gastroenterology Dr. Kumar Discharge Condition On ventilator, stable vital signs and respiration Discharge Diet GT feeding Final diagnoses Bradycardic arrest Hypertension Respiratory failure on vent Large neck mass, thyroid origin Dysphagia Right upper lobe pneumonia Dementia Leukocytosis Failure to thrive Constipation I have been assigned to dictate discharge summary for this account. Augustine Luque Aug 05, 2020 16:30
== END 2020-08-01 19:50 | DRG 208 ==
LOC: EMR 21:06 → 4E 22:04 → UNDOADMIN 22:04 → EDBEDREQ 22:26 → EDBEDREQSVC 23:20 → EDBEDREQ 23:20 → EDBEDREQSVC 07-20 01:05 → EDBEDREQ 07-20 01:43 → 4E 07-20 10:05 → 3E 07-20 17:10 → 2E 07-22 19:02 → ICU 07-26 16:22
PROC: 0DH63UZ Insertion of Feeding Device into Stomach, Percutaneous Approach (ICD-10-PCS; 2020-07-24 07:06)
PROC: 5A1945Z Respiratory Ventilation, 24-96 Consecutive Hours (ICD-10-PCS; principal; 2020-07-26)
PROC: 0BH18EZ Insertion of Endotracheal Airway into Trachea, Via Natural or Artificial Opening Endoscopic (ICD-10-PCS; principal; 2020-07-26)
DX: J18.1 Lobar pneumonia, unspecified organism (principal); J96.90 Respiratory failure, unspecified, unspecified whether with hypoxia or hypercapnia; I46.2 Cardiac arrest due to underlying cardiac condition; E07.9 Disorder of thyroid, unspecified; R13.10 Dysphagia, unspecified; E87.6 Hypokalemia; F03.90 Unspecified dementia, unspecified severity, without behavioral disturbance, psychotic disturbance, mood disturbance, and anxiety; J39.8 Other specified diseases of upper respiratory tract; I49.5 Sick sinus syndrome; R62.7 Adult failure to thrive; I10 Essential (primary) hypertension; K59.00 Constipation, unspecified; I16.0 Hypertensive urgency
CPT/HCPCS: 36415; 70491; 71045; 71260; 74177; 80048; 80053; 82248; 82550; 82803; 83690; 83880; 84439; 84443; 84481; 84484; 85007; 85025; 85379; 85610; 85651; 85730; 86140; 93005; 93306; 93970; 94002; 94003; 94150; 96365; 96372; 96375; 99285; J7030; J8499; U0002